=== PATIENT | female | born 1935 | race Caucasian/White ===

== ENCOUNTER 2016-11-13 11:03 | Inpatient (IN) ==
[2016-11-13 12:30] LABS: Basophils % 0.2 % (0.0-0.8); Hematocrit 33.3 VOL% (35.7-47.0); Hemoglobin 11.2 GM/DL (12.0-16.0); Immature Granulocytes % 0.6 %; Lymphocytes # 0.4 10*3/uL (1.4-4.0); Lymphocytes % 2.3 % (21.3-54.2); Mean Corpuscular HGB Conc 33.6 GM/DL (32-36); Mean Corpuscular Hemoglobin 31 PG (27-34); Mean Corpuscular Volume 93.3 FL (87-102); Mean Platelet Volume 11.4 FL (9.6-12.0); Monocytes # 1.4 10*3/uL (0.11-0.8); Neutrophils # 15.3 10*3/uL (1.4-7.4); Neutrophils % 88.9 % (38.7-73.9); Platelet Count 164 T/CUMM (130-400); Red Blood Count 3.57 MC/CUMM (3.8-5.5); Red Cell Distribution Width 14.6 % (9.3-17.3); White Blood Count 17.2 T/CUMM (4-12)
[2016-11-13 12:50] LABS: Band Neutrophils 13 % (0-10); Hypochromasia 1+; Lymphocytes 4 % (20-55); Segmented Neutrophils 76 % (50-85); Total Cells Counted 100
[2016-11-13 12:51] LABS: Platelet Estimate Adequate
[2016-11-13 13:00] LABS: Osmolality,Calculated 285.5 MOS/KG (273-304); Potassium 4.6 MMOL/L (3.5-5.1)
[2016-11-13 13:03] LABS: Troponin I Only 3.31 NG/ML (0.00-0.045)
--- NOTE | 2016-11-13 13:13 | XRay Report ---
Portable chest November 13, 2016 Indication: Shortness of breath Comparison images dated December 28, 2015. Findings: Prior sternotomy and evidence of coronary artery bypass graft. Heart size is stable. Small hiatal hernia is noted. Development of confluent opacities throughout the left lower lobe. Right lung remains clear. No acute osseous abnormalities. Degenerative changes throughout the thoracolumbar spine with mild thoracolumbar scoliosis. Impression: Left lower lobe pneumonia, consider aspiration PROCEDURE INTERPRETED AT [facility] DEPARTMENT OF RADIOLOGY Final Report Signed by: Darinel Alamo
[2016-11-13] MEDS ORDERED: ENOXAPARIN 40 MG/0.4 ML SYRINGE SUBCUT STA (13:58)
[2016-11-13] MEDS ORDERED: AZITHROMYCIN INJ 500 MG in SODIUM CHLORIDE 0.9% 250 ML IV STA (13:58)
[2016-11-13] MEDS ORDERED: ENOXAPARIN 40 MG/0.4 ML SYRINGE ONE (14:04)
[2016-11-13] MEDS ORDERED: AZITHROMYCIN 500 MG VIAL IV ONE (14:04)
--- NOTE | 2016-11-13 14:14 | Emergency Department Note ---
Nolan Fernandes Brooke, am scribing for, and in the presence of, Zachary Bates MD 11:46. Paulo Fernandes Sunil, MD, personally performed the services described in this documentation, ascribed by Arleen Francisco in my presence, and it is both accurate and complete 414 . Arrival - Arrival Chief Complaint: Chest Pain Stated Complaint: cp ED Nursing Triage Note: PT BROUGHT BY EMS FOR C/O CHEST PAIN BELOW LEFT BREAST FOR 2 DAYS. PAINFUL TO PALPATION. ASA, NTG, AND FENTANYL GIVEN PER EMS. INITIAL O2 SAT 82%. Mode of Arrival: Stretcher Limitations: No Limitations Source: Patient, EMS, RN Notes Reviewed Time Seen by Provider: 11/13/16 11:38 - History of Present Illness HPI Narrative: Patient is a 81 year old female who was brought into the ED by EMS with c/o chest pain that started last night. She states "I hurt all night" and the pain has worsened with time. Patient had bypass done in 1998 and states "they had to do five bypasses with that surgery." Patient has had some trouble since the bypass but she says she has not had to have any stents placed. Patient's thinks her last heart cath was done last year. She has no other complaints/pain. Patient also has PMHx of CHF, CAD, HTN, OR, anxiety, depression, asthma, bronchitis, COPD, GERD, back/neck problems, degenerative disk disease, osteoarthritis, breast cancer(bilateral mastectomy), and ovarian cancer. Her Integration Manager is Dr. Galdamez. Onset (ago): day(s) (1) Allergies/Adverse Reactions: Allergies Allergy/AdvReac Type Severity Reaction Status Date / Time Cefprozil [From Cefzil] Allergy RASH Verified 11/13/16 11:28 levofloxacin [From Levaquin] Allergy RASH Verified 11/13/16 11:28 solifenacin [From Vesicare] Allergy Unknown/Unable Verified 11/13/16 11:28 to obtain sotalol Allergy Unknown/Unable Verified 11/13/16 11:28 to obtain hydrocortisone AdvReac Swelling Verified 11/13/16 11:28 [From Cortizone-10] of Lip/Tongue/Throat ondansetron AdvReac RASH Verified 11/13/16 11:28 [From Zofran (as hydrochloride)] Penicillins AdvReac Swelling Verified 11/13/16 11:28 of Lip/Tongue/Throat prochlorperazine AdvReac Swelling Verified 11/13/16 11:28 [From Compazine] of Lip/Tongue/Throat promethazine [From Phenergan] AdvReac Swelling Verified 11/13/16 11:28 of Lip/Tongue/Throat Home Medications: Home Medications Medication Instructions Recorded Confirmed Type Albuterol Sulfate [Proair HFA] 90 mcg INH Q4H PRN 09/27/14 11/13/16 History Amlodipine Besylate 2.5 mg PO BEDTIME 09/27/14 11/13/16 History Aspirin [Ecotrin] 81 mg PO DAILY 09/27/14 11/13/16 History Atorvastatin [Lipitor] 20 mg PO BEDTIME 09/27/14 11/13/16 History Clopidogrel Bisulfate [Clopidogrel] 75 mg PO QPM 09/27/14 11/13/16 History Furosemide [Lasix] 20 mg PO BID 09/27/14 11/13/16 History Isosorbide Mononitrate [Isosorbide 60 mg PO QAM 09/27/14 11/13/16 History Mononitrate ER] Lansoprazole 30 mg PO QPM 09/27/14 11/13/16 History Levothyroxine Sodium [Synthroid] 100 mcg PO QAM 09/27/14 11/13/16 History Morphine Sulfate [Morphine Sulfate 15 mg PO BEDTIME 09/27/14 11/13/16 History ER] Morphine Sulfate [Morphine Sulfate 30 mg PO QAM 09/27/14 11/13/16 History ER] Nitroglycerin Sl Tab [Nitrostat] 0.4 mg SL Q5M 09/27/14 11/13/16 History Valsartan [Diovan] 40 mg PO BEDTIME 09/27/14 11/13/16 History Albuterol/Ipratropium Neb [Duoneb] 3 ml RESP TX QID 12/28/15 11/13/16 History Ranolazine [Ranexa] 500 mg PO QAM 12/28/15 11/13/16 History Nebivolol [Bystolic] 5 mg PO QAM 11/13/16 11/13/16 History Review of System - Review of System 12 point system: reviewed and no additional remarkable complaints except as stated - Review of System Constitutional: Absent: fever Respiratory: Absent: respiratory distress Cardiovascular: Present: chest pain Skin: Absent: rash Medical,Surgical,& Family Hx - Medical History Cardio: History of: CHF, CAD, Hypertension, OR (5 CABG), Cardiovascular Problems Psychological: History of: Anxiety Disorders, Depression Respiratory: History of: Asthma, Bronchitis, COPD, Respiratory Problems Gastrointestinal: History of: GERD Musculoskeletal: History of: Back/Neck Problems, Degenerative Disk Disease, Musculoskeletal Problems (osteoarthritis) Hematology: No history of: Blood Transfusion Reaction Reproductive: History of: Breast Cancer (Bilat. mastectomy) Other: History of: Cancer (BREAST AND OVARY) No history of: Anesthesia Reactions, Eczema, HIV, Malignant Hyperthermia - Surgical History Cardiac Surgeries: Sugical HX of: Cardiac Catheterization, Cardiac Surgery (CABG ) Abdominal Surgeries: Surgical HX of: Colonoscopy Reproductive Surgeries: Surgical HX of;: Breast Surgery (bilat mastectomy, BILAT IMPLANTS), Hysterectomy - Family History Family History: Reports;: Family Cancer (MOTHER), Family Diabetes (AUNT), Family Heart Disease (FATHER) Denies;: Family Anesthesia Reaction, Family Hypertension, Family Psychiatric Problems, Family Stroke - Social History Smoking Status: Former smoker Frequency of Alcohol Use: None Type of Drug Use: None Exam Vital Signs: Vital Signs Temperature 98.8 F 11/13/16 11:03 Pulse Rate 90 11/13/16 11:03 Respiratory Rate 20 11/13/16 11:03 Blood Pressure 111/54 11/13/16 11:03 O2 Sat by Pulse Oximetry 90 L 11/13/16 11:03 - General General appearance: alert, in no apparent distress, other (Frail appearing) - Head Head exam: Present: atraumatic, normocephalic - Eye Eye exam: Present: normal appearance, PERRL, EOMI - ENT ENT exam: Present: normal exam - Neck Neck exam: Present: normal inspection - Chest Chest inspection: Present: normal inspection, symmetric chest wall rise - Respiratory Respiratory exam: Present: normal lung sounds bilaterally - Cardiovascular Cardiovascular exam: Present: regular rate, normal rhythm, normal heart sounds - Abdominal Exam Abdominal exam: Present: soft, normal bowel sounds. Absent: distention, tenderness - Extremities Exam Extremities exam: Present: normal inspection - Back Exam Back exam: Present: normal inspection - Neurological Exam Neurological exam: Present: alert, oriented X3 - Psychiatric Psychiatric exam: Present: normal affect, normal mood - Skin Skin exam: Present: warm, dry, intact, normal color Results - Labs CBC & BMP: 11/13/16 12:24 11/13/16 12:24 Lab Results: I have reviewed the patients labs Labs: Laboratory Tests 11/13/16 11/13/16 12:24 12:24 WBC 17.2 H RBC 3.57 L Hgb 11.2 L Hct 33.3 L MCV 93.3 MCH 31 MCHC 33.6 RDW 14.6 Plt Count 164 MPV 11.4 Neut % (Auto) 88.9 H Lymph % (Auto) 2.3 L [place] % (Auto) 8.0 Eos % (Auto) 0.0 Baso % (Auto) 0.2 Neut # (Auto) 15.3 H Lymph # (Auto) 0.4 L [place] # (Auto) 1.4 H Eos # (Auto) 0.0 Baso # (Auto) 0.0 Total Counted 100 Immature Gran % 0.6 Nucleated RBC % 0.0 Immature Gran # 0.10 Segmented Neutrophils 76 Band Neutrophils 13 H Lymphocytes 4 L Monocytes 7 Nucleated RBCs # 0.00 Platelet Estimate Adequate Immature Plt Fraction 0.0 Hypochromasia 1+ Morphology Comment Sodium 139 Potassium 4.6 Chloride 107 Carbon Dioxide 26 Anion Gap 10.6 BUN 33 H Creatinine 1.50 H GFR Calculation 24 BUN/Creatinine Ratio 22.00 H Glucose 138 H Calculated Osmolality 285.5 Calcium 10.0 Total Creatine Kinase 104 CK-MB (CK-2) 5.2 H CK and CKMB Interp 5.0 Troponin I 3.310 H - Impressions This patient has a left lower lobe pneumonia as well as an STEMI Her troponin is elevated to 3.389, I discussed her case with Dr. Weller who advised admission under the hospitalist because she also has a pneumonia. I discussed with the physician intellectual property legal assistant for the hospitalist who would admit this patient. I have given her Zithromax 500 mg IV 1 dose Lovenox 40 mg subcu one dose she has already received aspirin - Diagnostic Findings Procedure: Chest x-ray: report reviewed by me (Left lower lobe pneumonia, consider aspiration.) Disposition Clinical Impression: NSTEMI (non-ST elevated myocardial infarction), Pneumonia Case discussed with: patient, patient's family Disposition: Still a Patient Condition: Stable
[2016-11-13] MEDS ORDERED: ONDANSETRON 4 MG/2 ML VIAL IV PRN (14:54)
--- NOTE | 2016-11-13 14:58 | EKG Report ---
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
[2016-11-13] MEDS: CLINDAMYCIN INJ 300 MG in PREMIX 1 EACH IV SCH (16:17)
--- NOTE | 2016-11-13 16:52 | Cardiology Consult Note ---
History of Present Illness - Data of Consult Patient: known to practice within the last 3 years - Consult Narrative History of present illness: Cardiology consult 81-year-old woman admitted with left chest pain and shortness of breath. She denies fever or chills. Patient has a dense infiltrate in the left lower lobe with an elevated white count 17.2 with left shift. The troponin is 3.310 with a normal CPK 104. The patient has chronic renal failure. Creatinine is 1.50 BUN 33 with a calculated creatinine clearance of 24 mL/min. The patient is 5 feet 2 inches tall and weighs 81 pounds. Chest x-ray shows hiatal hernia, bilateral breast implants and left lower lobe infiltrate. Patient has a history of ID and documented CAD. Status post four-vessel CABG September 30, 1998 with ALEXANDER graft to LAD, saphenous vein graft the fourth OM branch, and a sequential vein graft to PDA and posterior LV branch. Her last cardiac cath was October 11, [address] Sifuentes which showed ejection fraction of 35% with diffuse [place] vessel calcification with severe left main disease, severe proximal LAD disease, moderate diffuse circumflex disease and occluded right coronary. The ALEXANDER graft to LAD was patent. The vein graft to the fourth 1 branch was occluded. The sequential vein graft to the PDA posterior branch was patent but had moderate diffuse disease. The patient has chronic back and neck pain and takes morphine twice daily. She does have chronic hypertension. She has hyperlipidemia and takes atorvastatin 20 mg daily. She has COPD and uses duo nebs at home 4 times daily. No history of stroke. No history of diabetes. She does have GE reflux symptoms and takes Prevacid 30 mg daily. The patient lives in her home alone. Her daughter does most of the cooking for her. She sleeps on 2 pillows and has nocturia 3 or 4 times nightly which is chronic. She has a history of breast cancer status post bilateral mastectomies with breast implants around 1979. She also history of ovarian carcinoma. Initial lab data White count 17.2 with left shift hemoglobin 11.2 hematocrit 33.3 sodium 139 potassium 4.6 chloride 107 CO2 26 BUN 33 creatinine 1.50 Estimated GFR 24 mL/min CPK 104 troponin III 0.310 EKG shows sinus rhythm LVH with strain pattern. Blood pressure 130/80 pulse 86 and regular respirations 22 she is very hard of hearing but quite pleasant. Vital arcus. Right carotid bruit. Very decreased breath sounds throughout with rhonchi in the bases. Mild kyphosis. Regular rhythm. Distant heart tones soft systolic murmur. Abdomen soft benign. Femoral pulses are 2+ with faint left bruit distal pulses 1+ no leg edema Impression Left lower lobe pneumonia with dense infiltrate and elevated white count 17.2 with left shift Ischemic cardiomyopathy EF 35% by cardiac cath September 2007 Status post four-vessel CABG September 30, 1998 with ALEXANDER graft to LAD, vein graft to the fourth OM branch, and sequential vein graft to PDA and posterior LV branch Chronic back and neck pain requiring morphine twice daily COPD Frail and debilitated 5 feet 2 inches tall 81 pounds Hyperlipidemia Chronic hypertension Chronic GE reflux History of multiple distal esophageal stricture dilatations by , she was dilated December 03, 2011 and she was dilated about 1 year ago according to her daughter. Status post bilateral mastectomies for breast cancer with implants Atypical chest pain Hypothyroid on levothyroxine Sleep study done September 2001 showed insomnia, periodic limb movement disorder and no POLY Remote tobacco use, quit 1998 following bypass surgery Plan Admit to telemetry IV antibiotics Nebs Supplemental O2 as needed Encourage nutrition. patient is quite frail and weighs 81 pounds Echo Doppler in a.m. CC: Rigo Duenas MD - Home Medications and Allergies Home Medications: Home Medications Medication Instructions Recorded Confirmed Type Albuterol Sulfate [Proair HFA] 90 mcg INH Q4H PRN 09/27/14 11/13/16 History Amlodipine Besylate 2.5 mg PO BEDTIME 09/27/14 11/13/16 History Aspirin [Ecotrin] 81 mg PO DAILY 09/27/14 11/13/16 History Atorvastatin [Lipitor] 20 mg PO BEDTIME 09/27/14 11/13/16 History Clopidogrel Bisulfate [Clopidogrel] 75 mg PO QPM 09/27/14 11/13/16 History Furosemide [Lasix] 20 mg PO BID 09/27/14 11/13/16 History Isosorbide Mononitrate [Isosorbide 60 mg PO QAM 09/27/14 11/13/16 History Mononitrate ER] Lansoprazole 30 mg PO QPM 09/27/14 11/13/16 History Levothyroxine Sodium [Synthroid] 100 mcg PO QAM 09/27/14 11/13/16 History Morphine Sulfate [Morphine Sulfate 15 mg PO BEDTIME 09/27/14 11/13/16 History ER] Morphine Sulfate [Morphine Sulfate 30 mg PO QAM 09/27/14 11/13/16 History ER] Nitroglycerin Sl Tab [Nitrostat] 0.4 mg SL Q5M 09/27/14 11/13/16 History Valsartan [Diovan] 40 mg PO BEDTIME 09/27/14 11/13/16 History Albuterol/Ipratropium Neb [Duoneb] 3 ml RESP TX QID 12/28/15 11/13/16 History Ranolazine [Ranexa] 500 mg PO QAM 12/28/15 11/13/16 History Nebivolol [Bystolic] 5 mg PO QAM 11/13/16 11/13/16 History Allergies/Adverse Reactions: Allergies Allergy/AdvReac Type Severity Reaction Status Date / Time Cefprozil [From Cefzil] Allergy RASH Verified 11/13/16 11:28 levofloxacin [From Levaquin] Allergy RASH Verified 11/13/16 11:28 solifenacin [From Vesicare] Allergy Unknown/Unable Verified 11/13/16 11:28 to obtain sotalol Allergy Unknown/Unable Verified 11/13/16 11:28 to obtain hydrocortisone AdvReac Swelling Verified 11/13/16 11:28 [From Cortizone-10] of Lip/Tongue/Throat ondansetron AdvReac RASH Verified 11/13/16 11:28 [From Zofran (as hydrochloride)] Penicillins AdvReac Swelling Verified 11/13/16 11:28 of Lip/Tongue/Throat prochlorperazine AdvReac Swelling Verified 11/13/16 11:28 [From Compazine] of Lip/Tongue/Throat promethazine [From Phenergan] AdvReac Swelling Verified 11/13/16 11:28 of Lip/Tongue/Throat Medical,Surgical,& Family Hx - Medical History Cardio: History of: CHF, CAD, Hypertension, ID (5 CABG), Cardiovascular Problems Psychological: History of: Anxiety Disorders, Depression HEENT: History of: Ear Problem Respiratory: History of: Asthma, Bronchitis, COPD, Respiratory Problems Gastrointestinal: History of: GERD Musculoskeletal: History of: Back/Neck Problems, Degenerative Disk Disease, Musculoskeletal Problems (osteoarthritis) Hematology: No history of: Blood Transfusion Reaction Reproductive: History of: Breast Cancer (Bilat. mastectomy) Other: History of: Cancer (BREAST AND OVARY) No history of: Anesthesia Reactions, Eczema, HIV, Malignant Hyperthermia - Surgical History Cardiac Surgeries: Sugical HX of: Cardiac Catheterization, Cardiac Surgery (CABG ) HEENT Surgeries: Surgical HX of: Thyroid Surgery (thyroidectomy) Abdominal Surgeries: Surgical HX of: Appendectomy, Colonoscopy, EGD Reproductive Surgeries: Surgical HX of;: Breast Surgery (bilat mastectomy, BILAT IMPLANTS), Hysterectomy - Family History Family History: Reports;: Family Cancer (MOTHER), Family Diabetes (AUNT), Family Heart Disease (FATHER) Denies;: Family Anesthesia Reaction, Family Hypertension, Family Psychiatric Problems, Family Stroke - Social History Smoking Status: Former smoker Frequency of Alcohol Use: None Type of Drug Use: None Physical Examination Vital Signs Temp Pulse Resp BP Pulse Ox 98.8 F 90 20 111/54 90 L 11/13/16 11:03 11/13/16 11:03 11/13/16 11:03 11/13/16 11:03 11/13/16 11:03 Result/EKG - Labs CBC & BMP: 11/13/16 12:24 11/13/16 12:24 Labs: Laboratory Results - last 24 hr 11/13/16 11/13/16 12:24 12:24 WBC 17.2 H RBC 3.57 L Hgb 11.2 L Hct 33.3 L MCV 93.3 MCH 31 MCHC 33.6 RDW 14.6 Plt Count 164 MPV 11.4 Neut % (Auto) 88.9 H Lymph % (Auto) 2.3 L [place] % (Auto) 8.0 Eos % (Auto) 0.0 Baso % (Auto) 0.2 Neut # (Auto) 15.3 H Lymph # (Auto) 0.4 L [place] # (Auto) 1.4 H Eos # (Auto) 0.0 Baso # (Auto) 0.0 Total Counted 100 Immature Gran % 0.6 Nucleated RBC % 0.0 Immature Gran # 0.10 Segmented Neutrophils 76 Band Neutrophils 13 H Lymphocytes 4 L Monocytes 7 Nucleated RBCs # 0.00 Platelet Estimate Adequate Immature Plt Fraction 0.0 Hypochromasia 1+ Morphology Comment Sodium 139 Potassium 4.6 Chloride 107 Carbon Dioxide 26 Anion Gap 10.6 BUN 33 H Creatinine 1.50 H GFR Calculation 24 BUN/Creatinine Ratio 22.00 H Glucose 138 H Calculated Osmolality 285.5 Calcium 10.0 Total Creatine Kinase 104 CK-MB (CK-2) 5.2 H CK and CKMB Interp 5.0 Troponin I 3.310 H
[2016-11-13] MEDS ORDERED: ACETAMINOPHEN 325 MG TABLET PO PRN (18:53)
[2016-11-13] MEDS ORDERED: NITROGLYCERIN SL 0.4 MG TABLET SL SCH (19:00)
[2016-11-13] MEDS ORDERED: NITROGLYCERIN SL 0.4 MG TABLET SL PRN (19:00)
[2016-11-13] MEDS ORDERED: LANSOPRAZOLE 30 MG PO SCH (19:00)
[2016-11-13] MEDS: SODIUM CHLORIDE 0.9% 1,000 ML IV SCH (20:00)
[2016-11-13] MEDS: VALSARTAN 80 MG TABLET PO SCH ×2 (20:54→21:28)
[2016-11-13] MEDS: MORPHINE ER 15 MG TABLET PO SCH (20:55)
[2016-11-13] MEDS: ATORVASTATIN 20 MG TABLET PO SCH (20:55)
[2016-11-13] MEDS: FUROSEMIDE 20 MG TABLET PO SCH (20:55)
[2016-11-13] MEDS: CLOPIDOGREL 75 MG TABLET PO SCH (20:55)
[2016-11-13] MEDS: DOCUSATE SODIUM 100 MG CAPSULE PO SCH (20:55)
[2016-11-13] MEDS ORDERED: amLODIPine 2.5 MG TABLET PO SCH (21:00)
[2016-11-14] MEDS: CLINDAMYCIN INJ 300 MG in PREMIX 1 EACH IV SCH ×4 (01:17→23:30)
[2016-11-14 05:11] LABS: Basophils % 0.3 % (0.0-0.8); Eosinophils # 0.1 10*3/uL (0.0-0.87); Eosinophils % 0.8 % (0.00-10.9); Hematocrit 32.7 VOL% (35.7-47.0); Hemoglobin 10.8 GM/DL (12.0-16.0); Immature Granulocytes % 0.4 %; Immature Granulocytes Absolute 0.06 #; Lymphocytes # 1.4 10*3/uL (1.4-4.0); Lymphocytes % 9.8 % (21.3-54.2); Mean Corpuscular Hemoglobin 31 PG (27-34); Mean Corpuscular Volume 94.2 FL (87-102); Mean Platelet Volume 11.9 FL (9.6-12.0); Monocytes # 1.4 10*3/uL (0.11-0.8); Monocytes % 9.8 % (1.7-12.7); Neutrophils # 11.4 10*3/uL (1.4-7.4); Neutrophils % 78.9 % (38.7-73.9); Platelet Count 163 T/CUMM (130-400); Red Blood Count 3.47 MC/CUMM (3.8-5.5); Red Cell Distribution Width 14.8 % (9.3-17.3); White Blood Count 14.4 T/CUMM (4-12)
[2016-11-14 05:45] LABS: Calcium 10.1 MG/DL (8.5-10.1); Magnesium 2.1 MG/DL (1.8-2.4); Osmolality,Calculated 286.4 MOS/KG (273-304); Risk Ratio 1.66; VLDL CHOLESTEROL 9.6 MG/DL
[2016-11-14] MEDS: SODIUM CHLORIDE 0.9% 1,000 ML IV SCH ×2 (05:54→20:43)
[2016-11-14] MEDS: ALBUTEROL/IPRATROPIUM 3 ML NEB RESP TX SCH ×4 (07:30→19:13)
[2016-11-14] MEDS: RANOLAZINE 500 MG TABLET PO SCH (08:49)
[2016-11-14] MEDS: ISOSORBIDE MONONITRATE 60 MG TABLET PO SCH (08:50)
[2016-11-14] MEDS: MORPHINE ER 30 MG TABLET PO SCH (08:50)
[2016-11-14] MEDS: DOCUSATE SODIUM 100 MG CAPSULE PO SCH ×2 (08:50→20:51)
[2016-11-14] MEDS: LEVOTHYROXINE 100 MCG TABLET PO SCH (08:51)
[2016-11-14] MEDS: NEBIVOLOL 5 MG TABLET PO SCH (08:51)
[2016-11-14] MEDS: PANTOPRAZOLE 40 MG TABLET PO SCH (08:51)
[2016-11-14] MEDS: ASPIRIN EC 81 MG TABLET PO SCH (08:51)
[2016-11-14] MEDS: FUROSEMIDE 20 MG TABLET PO SCH ×2 (08:51→20:55)
[2016-11-14] MEDS ORDERED: ASPIRIN EC 325 MG TABLET PO SCH (09:00)
--- NOTE | 2016-11-14 09:10 | Cardiology Progress Note ---
Cardiology - PN: Subj Interval history: Cardiology note 81-year-old woman admitted with left lower lobe pneumonia No temperature. Very hard of hearing but pleasant O2 sat 91% on 2 L cannula Blood pressure 110/62 Regular rhythm soft systolic murmur Decreased breath sounds throughout with bibasilar rhonchi left greater than right Abdomen soft nontender No leg edema Lab data today White count 14.7 hemoglobin 10.8 hematocrit 32.7 Sodium 140 potassium 4.0 chloride 106 CO2 30 BUN 33 creatinine 1.20 Glucose 118 magnesium 2.1 Impression Left lower lobe pneumonia with dense infiltrate and elevated white count 17.2 with left shift Ischemic cardiomyopathy EF 35% by cardiac cath September 2007 Status post four-vessel CABG September 30, 1998 with ALEXANDER graft to LAD, vein graft to the fourth OM branch, and sequential vein graft to the PDA and posterior LV branch Chronic back and neck pain requiring morphine twice daily COPD Frail 5 feet 2 inches tall 81 pounds Hyperlipidemia Chronic GE reflux History of multiple distal esophageal stricture dilatation by Dr. Baez, last dilated 1 year ago Status post bilateral mastectomies for breast CA with implants Atypical chest pain Hypothyroid Remote tobacco abuse, quit 1998 following bypass surgery Sleep study September 2001 showed insomnia, periodic limb movement disorder NOS a Hypertension Plan IV antibiotics clindamycin and azithromycin Echo Doppler Encourage nutrition Nebs Isosorbide 60 mg daily, Ranexa 500 mg daily Bystolic 5 mg daily Amlodipine 2.5 mg at bedtime Atorvastatin 20 mg daily Lovenox 30 mg subcu daily Discussed with daughter Exam (Progress Note) - Constitutional Vitals: Period Temp Pulse Resp BP Sys/Ch Pulse Ox Last 24 Hr 97.9 F-98.8 F 63-90 16-22 83-113/47-58 90-99 Result/EKG - Labs CBC & BMP: 11/14/16 04:32 11/14/16 04:32 Labs: Laboratory Results - last 24 hr 11/13/16 11/13/16 11/14/16 12:24 12:24 04:32 WBC 17.2 H 14.4 H RBC 3.57 L 3.47 L Hgb 11.2 L 10.8 L Hct 33.3 L 32.7 L MCV 93.3 94.2 MCH 31 31 MCHC 33.6 33.0 RDW 14.6 14.8 Plt Count 164 163 MPV 11.4 11.9 Neut % (Auto) 88.9 H 78.9 H Lymph % (Auto) 2.3 L 9.8 L [place] % (Auto) 8.0 9.8 Eos % (Auto) 0.0 0.8 Baso % (Auto) 0.2 0.3 Neut # (Auto) 15.3 H 11.4 H Lymph # (Auto) 0.4 L 1.4 [place] # (Auto) 1.4 H 1.4 H Eos # (Auto) 0.0 0.1 Baso # (Auto) 0.0 0.0 Total Counted 100 Immature Gran % 0.6 0.4 Nucleated RBC % 0.0 0.0 Immature Gran # 0.10 0.06 Segmented Neutrophils 76 Band Neutrophils 13 H Lymphocytes 4 L Monocytes 7 Nucleated RBCs # 0.00 0.00 Platelet Estimate Adequate Immature Plt Fraction 0.0 0.0 Hypochromasia 1+ Morphology Comment Sodium 139 Potassium 4.6 Chloride 107 Carbon Dioxide 26 Anion Gap 10.6 BUN 33 H Creatinine 1.50 H GFR Calculation 24 BUN/Creatinine Ratio 22.00 H Glucose 138 H Calculated Osmolality 285.5 Calcium 10.0 Magnesium Total Creatine Kinase 104 CK-MB (CK-2) 5.2 H CK and CKMB Interp 5.0 Troponin I 3.310 H Triglycerides Cholesterol LDL Cholesterol VLDL Cholesterol HDL Cholesterol Heart Disease Risk Ratio 11/14/16 04:32 WBC RBC Hgb Hct MCV MCH MCHC RDW Plt Count MPV Neut % (Auto) Lymph % (Auto) [place] % (Auto) Eos % (Auto) Baso % (Auto) Neut # (Auto) Lymph # (Auto) [place] # (Auto) Eos # (Auto) Baso # (Auto) Total Counted Immature Gran % Nucleated RBC % Immature Gran # Segmented Neutrophils Band Neutrophils Lymphocytes Monocytes Nucleated RBCs # Platelet Estimate Immature Plt Fraction Hypochromasia Morphology Comment Sodium 140 Potassium 4.0 Chloride 106 Carbon Dioxide 30 Anion Gap 8.0 BUN 33 H Creatinine 1.20 H GFR Calculation 31 BUN/Creatinine Ratio 27.00 H Glucose 118 H Calculated Osmolality 286.4 Calcium 10.1 Magnesium 2.1 Total Creatine Kinase CK-MB (CK-2) CK and CKMB Interp Troponin I Triglycerides 48 Cholesterol 108 LDL Cholesterol 33.0 VLDL Cholesterol 9.6 HDL Cholesterol 65 H Heart Disease Risk Ratio 1.66
[2016-11-14] MEDS: MORPHINE 2 MG/1 ML SYRINGE IV PRN (10:15)
--- NOTE | 2016-11-14 12:40 | ECHO Report ---
Kristel Sanchez Exam Date: 11/14/2016 08:11 Referring Physician: Technologist: Leila Watson Age: 81 Ht (in): 60 Wt (lb): 82 Gender: F Exam Location: [facility] Echo Indications: NSTEMI, chest pain, SOB, HTN, pneumonia BP: 96 / 53 HR: 73 Rhythm: Sinus Technical Quality: Good IMPRESSIONS EF 35 %, moderate global hypokinesis. Grade II/IV diastolic dysfunction, moderately elevated filling pressures. Normal right ventricular size and systolic function. The right atrium is mildly enlarged. Severely increased left atrial size. Mildly thickened mitral valve. Mitral annular calcification. Mild mitral valve regurgitation. Aortic valve sclerosis. Trace aortic valve regurgitation. Moderate tricuspid valve regurgitation. PAP50 mmHG. Trace pulmonary valve regurgitation. No pericardial effusion. Normal aorta. MEASUREMENTS (Male / Female) Normal Values 2D ECHO LV Diastolic Diameter PLAX 3.6 cm 4.2 - 5.9 / 3.9 - 5.3 cm LV Systolic Diameter PLAX 3.1 cm LV Fractional Shortening PLAX 13.5 % IVS Diastolic Thickness 1.3 cm 0.6 - 1.0 / 0.6 - 0.9 cm LVPW Diastolic Thickness 1.1 cm 0.6 - 1.0 / 0.6 - 0.9 cm Aortic Root Diameter 2.6 cm LA Systolic Diameter LX 4.0 cm 3.0 - 4.0 / 2.7 - 3.8 cm DOPPLER TR Peak Velocity 290.0 cm/s TR Peak Gradient 33.6 mmHg FINDINGS Left Ventricle EF 35 %, moderate global hypokinesis. Grade II/IV diastolic dysfunction, moderately elevated filling pressures. Right Ventricle Normal right ventricular size and systolic function. Right Atrium The right atrium is mildly enlarged. Left Atrium Severely increased left atrial size. Mitral Valve Mildly thickened mitral valve. Mitral annular calcification. Mild mitral valve regurgitation. Aortic Valve Aortic valve sclerosis. Trace aortic valve regurgitation. Tricuspid Valve Morphologically normal tricuspid valve. Moderate tricuspid valve regurgitation. PAP50 mmHG. Pulmonic Valve Pulmonic valve not well visualized. Trace pulmonary valve regurgitation. Pericardium No pericardial effusion. Aorta Normal aorta. Parvez Weller (Electronically Signed) Final Date: 14 November 2016 12:39
--- NOTE | 2016-11-14 13:27 | Family Practice History&Phys ---
Assessment and Plan (1) Left lower lobe pneumonia Status: Acute Assessment and plan: We will admit and start on empiric antibiotics. Radiologist felt x-rays were consistent with aspirational pneumonia. Patient presently on Cleocin and Zithromax. Patient is allergic to quinolones Current Visit: Yes (2) Ischemic cardiomyopathy Status: Chronic Assessment and plan: Have consulted cardiology and they are evaluating and following her cardiomyopathy Current Visit: Yes (3) Chronic obstructive pulmonary disease Status: Chronic Assessment and plan: Patient has some wheezing in bases and this is definitely contributing factor. It started on respiratory treatments. Encourage patient increase activity Current Visit: Yes (4) Status post coronary artery bypass graft Status: Chronic Assessment and plan: Stable at present Current Visit: Yes (5) Coronary artery disease Status: Chronic Assessment and plan: Stable at present. He is being followed followed by cardiology. She had elevated troponins on admission but these are returning to normal and most likely are related to other etiologies other than cardiac Current Visit: No (6) Status post carcinoma of the breast Status: Chronic Assessment and plan: Stable at present Current Visit: Yes (7) Gastroesophageal reflux with stricture Status: Chronic Assessment and plan: Stable at present. We will start her on oral protein pump inhibitor Current Visit: Yes (8) Hypothyroid Status: Chronic Assessment and plan: Stable on present medications. Will repeat lab studies Current Visit: Yes (9) Hypertension Status: Chronic Assessment and plan: Blood pressures are overcontrolled at present. Patient's daughter states that Dr. Avalos had stopped her blood pressure medications at home. Will hold her amlodipine. Will monitor blood pressure Current Visit: Yes History of Present Illness Chief complaint: Dyspnea and cough History of present illness: Ms. Sanchez is a 81 year old female Patient presented to emergency room with a one-week history of progressive shortness of breath and nonproductive cough. She was noted to have a left lower lobe pneumonia in the emergency room. She also had elevated troponins. Patient has a history of coronary artery disease and ischemic cardiomyopathy. She also has chronic obstructive pulmonary disease. Her creatinine was slightly elevated at 1.5 in the emergency room. She had a white blood cell count of 17,200. In view of history we will admit further evaluation therapy Home Medications Medication Instructions Recorded Confirmed Type Albuterol Sulfate [Proair HFA] 90 mcg INH Q4H PRN 09/27/14 11/13/16 History Amlodipine Besylate 2.5 mg PO BEDTIME 09/27/14 11/13/16 History Aspirin [Ecotrin] 81 mg PO DAILY 09/27/14 11/13/16 History Atorvastatin [Lipitor] 20 mg PO BEDTIME 09/27/14 11/13/16 History Clopidogrel Bisulfate [Clopidogrel] 75 mg PO QPM 09/27/14 11/13/16 History Furosemide [Lasix] 20 mg PO BID 09/27/14 11/13/16 History Isosorbide Mononitrate [Isosorbide 60 mg PO QAM 09/27/14 11/13/16 History Mononitrate ER] Lansoprazole 30 mg PO QPM 09/27/14 11/13/16 History Levothyroxine Sodium [Synthroid] 100 mcg PO QAM 09/27/14 11/13/16 History Morphine Sulfate [Morphine Sulfate 15 mg PO BEDTIME 09/27/14 11/13/16 History ER] Morphine Sulfate [Morphine Sulfate 30 mg PO QAM 09/27/14 11/13/16 History ER] Nitroglycerin Sl Tab [Nitrostat] 0.4 mg SL Q5M 09/27/14 11/13/16 History Valsartan [Diovan] 40 mg PO BEDTIME 09/27/14 11/13/16 History Albuterol/Ipratropium Neb [Duoneb] 3 ml RESP TX QID 12/28/15 11/13/16 History Ranolazine [Ranexa] 500 mg PO QAM 12/28/15 11/13/16 History Nebivolol [Bystolic] 5 mg PO QAM 11/13/16 11/13/16 History Allergies Allergy/AdvReac Type Severity Reaction Status Date / Time Cefprozil [From Cefzil] Allergy RASH Verified 11/13/16 11:28 levofloxacin [From Levaquin] Allergy RASH Verified 11/13/16 11:28 solifenacin [From Vesicare] Allergy Unknown/Unable Verified 11/13/16 11:28 to obtain sotalol Allergy Unknown/Unable Verified 11/13/16 11:28 to obtain hydrocortisone AdvReac Swelling Verified 11/13/16 11:28 [From Cortizone-10] of Lip/Tongue/Throat ondansetron AdvReac RASH Verified 11/13/16 11:28 [From Zofran (as hydrochloride)] Penicillins AdvReac Swelling Verified 11/13/16 11:28 of Lip/Tongue/Throat prochlorperazine AdvReac Swelling Verified 11/13/16 11:28 [From Compazine] of Lip/Tongue/Throat promethazine [From Phenergan] AdvReac Swelling Verified 11/13/16 11:28 of Lip/Tongue/Throat Medical,Surgical,& Family Hx - Medical History Cardio: History of: CHF, CAD, Hypertension, [place] (5 CABG), Cardiovascular Problems Psychological: History of: Anxiety Disorders, Depression HEENT: History of: Ear Problem Respiratory: History of: Asthma, Bronchitis, COPD, Respiratory Problems Gastrointestinal: History of: GERD Musculoskeletal: History of: Back/Neck Problems, Degenerative Disk Disease, Musculoskeletal Problems (osteoarthritis) Hematology: No history of: Blood Transfusion Reaction Reproductive: History of: Breast Cancer (Bilat. mastectomy) Other: History of: Cancer (BREAST AND OVARY) No history of: Anesthesia Reactions, Eczema, HIV, Malignant Hyperthermia - Surgical History Cardiac Surgeries: Sugical HX of: Cardiac Catheterization, Cardiac Surgery (CABG ) HEENT Surgeries: Surgical HX of: Thyroid Surgery (thyroidectomy) Abdominal Surgeries: Surgical HX of: Appendectomy, Colonoscopy, EGD Reproductive Surgeries: Surgical HX of;: Breast Surgery (bilat mastectomy, BILAT [employer]PLANTS), Hysterectomy - Family History Family History: Reports;: Family Cancer (MOTHER), Family Diabetes (AUNT), Family Heart Disease (FATHER) Denies;: Family Anesthesia Reaction, Family Hypertension, Family Psychiatric Problems, Family Stroke - Social History Smoking Status: Former smoker Frequency of Alcohol Use: None Type of Drug Use: None Marital Status: Lives With:: Alone Functional capacity: uses cane/walker Exam - Constitutional Vitals: Period Temp Pulse Resp BP Sys/Ch Pulse Ox Last 24 Hr 97.9 F-98.5 F 62-84 16-22 83-113/47-57 90-99 General appearance: mild distress - Head Head exam: Present: normal inspection - Eye Pupils: Present: ROGERIO - ENT ENT exam: Present: other (Patient is extremely hard of hearing) - Neck Neck exam: Present: normal inspection - Respiratory Respiratory exam: Present: rhonchi, wheezes - Cardiovascular Cardiovascular exam: Present: regular rate and rhythm - GI/Abdominal GI/Abdominal exam: Present: normal bowel sounds, soft - Extremities Exam Extremities exam: Present: normal inspection - Back Exam Back exam: Present: normal inspection - Neurological Exam Neurological exam: Present: alert - Psychiatric Psychiatric exam: Present: flat affect - Skin Skin exam: Present: normal color Results - Labs CBC & BMP: 11/14/16 04:32 11/14/16 04:32
[2016-11-14] MEDS: ENOXAPARIN 30 MG/0.3 ML SYRINGE SUBCUT SCH (15:29)
[2016-11-14] MEDS: AZITHROMYCIN INJ 500 MG in SODIUM CHLORIDE 0.9% 250 ML IV SCH (15:29)
[2016-11-14 18:04] LABS: Apearance,Urine CLEAR (Clear); Bacteria,Urine Moderate /HPF (Few); Bilirubin,Urine Negative (Negative); Blood, Urine Small mg/dL (Negative); Glucose,Urine (UA) Negative (Negative); Hyaline Casts,Urine 1 /LPF (0-3); Ketones,Urine Negative (Negative); Mucus,Urine Occasional /LPF (Occasional); Nitrite,Urine Negative (Negative); Protein,Urine Negative; RBC,Urine 1 /HPF (0-4); Squamous Epithelial Cell,Urine Occasional /HPF (0-10); Urine Color Yellow (Yellow); Urine Specific Gravity 1.009 (1.001-1.035); Urine Urobilinogen < 2.0 EU/DL (0.2-1.0); WBC,Urine 4 /HPF (0-6)
[2016-11-14] MEDS: CLOPIDOGREL 75 MG TABLET PO SCH (18:52)
[2016-11-14] MEDS: MORPHINE ER 15 MG TABLET PO SCH (20:48)
[2016-11-14] MEDS: VALSARTAN 80 MG TABLET PO SCH (20:52)
[2016-11-14] MEDS: ATORVASTATIN 20 MG TABLET PO SCH (20:57)
[2016-11-15 05:13] LABS: Basophils % 0.3 % (0.0-0.8); Eosinophils # 0.3 10*3/uL (0.0-0.87); Eosinophils % 2.7 % (0.00-10.9); Hematocrit 32.3 VOL% (35.7-47.0); Hemoglobin 10.6 GM/DL (12.0-16.0); Immature Granulocytes % 0.6 %; Immature Granulocytes Absolute 0.07 #; Lymphocytes # 1.3 10*3/uL (1.4-4.0); Lymphocytes % 10.7 % (21.3-54.2); Mean Corpuscular HGB Conc 32.8 GM/DL (32-36); Mean Corpuscular Hemoglobin 31 PG (27-34); Mean Platelet Volume 11.8 FL (9.6-12.0); Monocytes # 1.2 10*3/uL (0.11-0.8); Neutrophils # 9.4 10*3/uL (1.4-7.4); Neutrophils % 75.7 % (38.7-73.9); Platelet Count 164 T/CUMM (130-400); Red Cell Distribution Width 14.8 % (9.3-17.3); White Blood Count 12.4 T/CUMM (4-12)
[2016-11-15 05:42] LABS: Calcium 9.9 MG/DL (8.5-10.1); Osmolality,Calculated 285.3 MOS/KG (273-304); Potassium 4.1 MMOL/L (3.5-5.1)
[2016-11-15 05:57] LABS: Free T4 (Free Thyroxine) 1.33 NG/DL (0.76-1.46); Thyroid Stimulating Hormone 0.779 uIU/ml (0.358-3.74)
[2016-11-15] MEDS: SODIUM CHLORIDE 0.9% 1,000 ML IV SCH ×2 (07:07→11:08)
[2016-11-15] MEDS: ALBUTEROL/IPRATROPIUM 3 ML NEB RESP TX SCH ×4 (07:38→19:21)
[2016-11-15] MEDS: CLINDAMYCIN INJ 300 MG in PREMIX 1 EACH IV SCH ×2 (08:59→16:00)
[2016-11-15] MEDS: ISOSORBIDE MONONITRATE 60 MG TABLET PO SCH (09:11)
[2016-11-15] MEDS: RANOLAZINE 500 MG TABLET PO SCH (09:11)
[2016-11-15] MEDS: NEBIVOLOL 5 MG TABLET PO SCH (09:11)
[2016-11-15] MEDS: FUROSEMIDE 20 MG TABLET PO SCH ×2 (09:11→20:57)
[2016-11-15] MEDS: LEVOTHYROXINE 100 MCG TABLET PO SCH (09:11)
[2016-11-15] MEDS: MORPHINE ER 30 MG TABLET PO SCH (09:11)
[2016-11-15] MEDS: ASPIRIN EC 81 MG TABLET PO SCH (09:12)
[2016-11-15] MEDS: DOCUSATE SODIUM 100 MG CAPSULE PO SCH ×2 (09:15→20:56)
[2016-11-15] MEDS: PANTOPRAZOLE 40 MG TABLET PO SCH (09:15)
[2016-11-15] MEDS: MEGESTROL 400 MG/10 ML UDCUP PO SCH ×2 (09:16→09:17)
--- NOTE | 2016-11-15 10:36 | XRay Report ---
2 view chest November 15, 2016 at 0808 hours Indication: Difficulty breathing Comparison images from November 13, 2016 Findings: There is again underlying interstitial fibrosis. Some degree of improvement in the superimposed left lingular and lower lobe consolidation. Trace pleural effusions are stable. Marked osteoporosis and atheromatous disease Impression: 1. Some degree of improvement in the left lingular and lower lobe consolidation 2. Chronic interstitial fibrosis 3. Trace pleural effusions, unchanged PROCEDURE INTERPRETED AT [facility] DEPARTMENT OF RADIOLOGY Final Report Signed by: Darinel Alamo
--- NOTE | 2016-11-15 11:27 | Cardiology Progress Note ---
Cardiology - PN: Subj Interval history: Cardiology note 81-year-old woman admitted with left lower lobe pneumonia No temperature. Minimal cough. Appetite fair. O2 sat 95% on 2 L Blood pressure 120/68 Regular rhythm Decreased breath sounds bilaterally few rhonchi in the left base Abdomen benign No leg edema Lab data today White count 12.4 hemoglobin 10.6 hematocrit 32.3 Sodium 141 potassium 4.1 chloride 106 CO2 30 BUN 23 creatinine 1.0 Glucose 124 Impression Left lower lobe pneumonia Ischemic cardia myopathy EF 35% by cardiac cath September 2007 Status post four-vessel CABG September 30, 1998 with ALEXANDER graft to LAD, vein graft to the fourth OM branch, and sequential vein graft to the PDA and posterior LV branch Chronic back and neck pain requiring morphine twice daily COPD Frailty 5 feet 2 inches tall 81 pounds Hyperlipidemia GE reflux History of multiple distal esophageal stricture dilatations by Dr. Baez, last dilated 1 year ago Atypical chest pain Hypothyroid Remote tobacco abuse, quit 1998 following bypass surgery Hypertension Echo showed ejection fraction of 35% with grade 2 diastolic dysfunction, severely dilated left atrium, mild MR, aortic valve sclerosis, normal RV function, moderate TR PA pressure 50 and no effusion Plan IV antibiotics Nebs Encourage nutrition Isosorbide 60 mg daily Ranexa 500 mg daily Atorvastatin 20 mg daily Lovenox subcu 30 mg daily Exam (Progress Note) - Constitutional Vitals: Period Temp Pulse Resp BP Sys/Ch Pulse Ox Last 24 Hr 97.9 F-100.7 F 56-81 16-20 86-133/45-65 89-99 Result/EKG - Labs CBC & BMP: 11/15/16 04:28 11/15/16 04:28 Labs: Laboratory Results - last 24 hr 11/14/16 11/15/16 11/15/16 04:00 04:28 04:28 WBC 12.4 H RBC 3.40 L Hgb 10.6 L Hct 32.3 L MCV 95.0 MCH 31 MCHC 32.8 RDW 14.8 Plt Count 164 MPV 11.8 Neut % (Auto) 75.7 H Lymph % (Auto) 10.7 L [place] % (Auto) 10.0 Eos % (Auto) 2.7 Baso % (Auto) 0.3 Neut # (Auto) 9.4 H Lymph # (Auto) 1.3 L [place] # (Auto) 1.2 H Eos # (Auto) 0.3 Baso # (Auto) 0.0 Immature Gran % 0.6 Nucleated RBC % 0.0 Immature Gran # 0.07 Nucleated RBCs # 0.00 Immature Plt Fraction 0.0 Sodium 141 Potassium 4.1 Chloride 106 Carbon Dioxide 30 Anion Gap 9.1 BUN 23 H D Creatinine 1.00 GFR Calculation 40 BUN/Creatinine Ratio 23.00 H Glucose 124 H Calculated Osmolality 285.3 Calcium 9.9 Free T4 TSH 3rd Generation Urine Color Yellow Urine Appearance Clear Urine pH 5.0 Ur Specific [place] 1.009 Urine Protein Negative Urine Glucose (UA) Negative Urine Ketones Negative Urine Blood Small Urine Nitrate Negative Urine Bilirubin Negative Urine Urobilinogen < 2.0 H Urine Leukocytes Negative Urine RBC 1 Urine WBC 4 Ur Squamous Epith Cells Occasional Urine Bacteria Moderate Hyaline Casts 1 Urine Mucus Occasional Ur Culture Indicated? Not indicated 11/15/16 04:28 WBC RBC Hgb Hct MCV MCH MCHC RDW Plt Count MPV Neut % (Auto) Lymph % (Auto) [place] % (Auto) Eos % (Auto) Baso % (Auto) Neut # (Auto) Lymph # (Auto) [place] # (Auto) Eos # (Auto) Baso # (Auto) Immature Gran % Nucleated RBC % Immature Gran # Nucleated RBCs # Immature Plt Fraction Sodium Potassium Chloride Carbon Dioxide Anion Gap BUN Creatinine GFR Calculation BUN/Creatinine Ratio Glucose Calculated Osmolality Calcium Free T4 1.33 TSH 3rd Generation 0.779 Urine Color Urine Appearance Urine pH Ur Specific [place] Urine Protein Urine Glucose (UA) Urine Ketones Urine Blood Urine Nitrate Urine Bilirubin Urine Urobilinogen Urine Leukocytes Urine RBC Urine WBC Ur Squamous Epith Cells Urine Bacteria Hyaline Casts Urine Mucus Ur Culture Indicated?
[2016-11-15] MEDS ORDERED: FUROSEMIDE 40 MG/4 ML VIAL IV ONE (12:23)
[2016-11-15] MEDS: MORPHINE 2 MG/1 ML SYRINGE IV PRN ×2 (12:51→18:00)
--- NOTE | 2016-11-15 12:55 | Family Practice Progress Note ---
Family Practice - PN: Subj Interval history: 11/15/16 -patient states she feels better this a.m. Appetite is improved. Feels that her cough and dyspnea also improved. Denies any new complaints. Vitals are stable except blood pressure still decreased. Her weight is up 4 pounds. Her a.m. WBC is improved at 12,400. Her thought labs are stable except her BNP is elevated at 3067. Her a.m. chest x-ray reveals some degree of improvement in the left lingular and left lower lobe pneumonia. Does not show any signs of failure. Physical exam is stable except she has some persistent wheezing in bases. Did not auscultate any rales. Dr. Weller ordered additional dosage of Lasix today. Encourage patient to sit up in chair and ambulate as much as possible. We will continue present therapy. Exam (Progress Note) - Constitutional Vitals: Period Temp Pulse Resp BP Sys/Ch Pulse Ox Last 24 Hr 97.9 F-100.7 F 56-81 16-20 86-133/45-65 89-99 Results - Labs CBC & BMP: 11/15/16 04:28 11/15/16 04:28 Assessment and Plan (1) Left lower lobe pneumonia Status: Acute Assessment and plan: We will admit and start on empiric antibiotics. Radiologist felt x-rays were consistent with aspirational pneumonia. Patient presently on Cleocin and Zithromax. Patient is allergic to quinolones Current Visit: Yes (2) Ischemic cardiomyopathy Status: Chronic Assessment and plan: Have consulted cardiology and they are evaluating and following her cardiomyopathy Current Visit: Yes (3) Chronic obstructive pulmonary disease Status: Chronic Assessment and plan: Patient has some wheezing in bases and this is definitely contributing factor. It started on respiratory treatments. Encourage patient increase activity Current Visit: Yes (4) Status post coronary artery bypass graft Status: Chronic Assessment and plan: Stable at present Current Visit: Yes (5) Coronary artery disease Status: Chronic Assessment and plan: Stable at present. He is being followed followed by cardiology. She had elevated troponins on admission but these are returning to normal and most likely are related to other etiologies other than cardiac Current Visit: No (6) Status post carcinoma of the breast Status: Chronic Assessment and plan: Stable at present Current Visit: Yes (7) Gastroesophageal reflux with stricture Status: Chronic Assessment and plan: Stable at present. We will start her on oral protein pump inhibitor Current Visit: Yes (8) Hypothyroid Status: Chronic Assessment and plan: Stable on present medications. Will repeat lab studies Current Visit: Yes (9) Hypertension Status: Chronic Assessment and plan: Blood pressures are overcontrolled at present. Patient's daughter states that Dr. Avalos had stopped her blood pressure medications at home. Will hold her amlodipine. Will monitor blood pressure Current Visit: Yes
[2016-11-15] MEDS: ENOXAPARIN 30 MG/0.3 ML SYRINGE SUBCUT SCH (16:41)
[2016-11-15] MEDS: AZITHROMYCIN INJ 500 MG in SODIUM CHLORIDE 0.9% 250 ML IV SCH (16:41)
[2016-11-15] MEDS: CLOPIDOGREL 75 MG TABLET PO SCH (20:55)
[2016-11-15] MEDS: ATORVASTATIN 20 MG TABLET PO SCH (20:55)
[2016-11-15] MEDS: MORPHINE ER 15 MG TABLET PO SCH (20:56)
[2016-11-15] MEDS: VALSARTAN 80 MG TABLET PO SCH (20:56)
[2016-11-16] MEDS: CLINDAMYCIN INJ 300 MG in PREMIX 1 EACH IV SCH ×4 (00:28→23:37)
[2016-11-16 05:46] LABS: Basophils # 0.1 10*3/uL (0.0-0.2); Basophils % 0.5 % (0.0-0.8); Eosinophils # 0.4 10*3/uL (0.0-0.87); Eosinophils % 2.8 % (0.00-10.9); Hematocrit 30.5 VOL% (35.7-47.0); Hemoglobin 10.2 GM/DL (12.0-16.0); Immature Granulocytes % 0.7 %; Immature Granulocytes Absolute 0.09 #; Lymphocytes # 1.4 10*3/uL (1.4-4.0); Mean Corpuscular HGB Conc 33.4 GM/DL (32-36); Mean Corpuscular Hemoglobin 31 PG (27-34); Mean Corpuscular Volume 91.6 FL (87-102); Mean Platelet Volume 11.9 FL (9.6-12.0); Monocytes # 1.4 10*3/uL (0.11-0.8); Monocytes % 10.7 % (1.7-12.7); Neutrophils # 9.7 10*3/uL (1.4-7.4); Neutrophils % 74.3 % (38.7-73.9); Platelet Count 175 T/CUMM (130-400); Red Blood Count 3.33 MC/CUMM (3.8-5.5); Red Cell Distribution Width 14.6 % (9.3-17.3); White Blood Count 13.1 T/CUMM (4-12)
[2016-11-16 06:21] LABS: Calcium 10.1 MG/DL (8.5-10.1); Osmolality,Calculated 284.3 MOS/KG (273-304); Potassium 3.7 MMOL/L (3.5-5.1)
[2016-11-16] MEDS: ALBUTEROL/IPRATROPIUM 3 ML NEB RESP TX SCH ×3 (07:22→18:58)
--- NOTE | 2016-11-16 07:55 | Family Practice Progress Note ---
Family Practice - PN: Subj Interval history: Patient states she is feeling much better this morning but she is having some chest pain this morning. She is not having any fever or chills this morning. She denies any cough or shortness of breath. Exam (Progress Note) - Constitutional Vitals: Period Temp Pulse Resp BP Sys/Ch Pulse Ox Last 24 Hr 97.8 F-99.4 F 68-80 15-20 90-130/47-65 83-95 Exam: Objective a well-developed white female no acute distress. She is able give good history. She has no dyspnea at rest. Cardiovascular: The heart rates regular without murmurs or gallops. Respiratory: Patient has bibasilar rales. Abdomen: Abdomen soft and nontender to palpation. Results - Labs CBC & BMP: 11/16/16 04:22 11/16/16 04:22 Lab Results: I have reviewed the past 24 hour labs Assessment and Plan (1) Left lower lobe pneumonia Status: Acute Assessment and plan: 11/16/2016: Patient states she certainly feeling much better. She states she is not having any fever or chills. She is having angina which is quite common for her. Current Visit: Yes Specialty Discharge - Follow Up or Referrals
[2016-11-16] MEDS: MORPHINE 2 MG/1 ML SYRINGE IV PRN (09:27)
[2016-11-16] MEDS: LEVOTHYROXINE 100 MCG TABLET PO SCH (09:35)
[2016-11-16] MEDS: CLOPIDOGREL 75 MG TABLET PO SCH (09:35)
[2016-11-16] MEDS: FUROSEMIDE 20 MG TABLET PO SCH (09:35)
[2016-11-16] MEDS: RANOLAZINE 500 MG TABLET PO SCH (09:35)
[2016-11-16] MEDS: MORPHINE ER 30 MG TABLET PO SCH (09:35)
[2016-11-16] MEDS: MEGESTROL 400 MG/10 ML UDCUP PO SCH (09:36)
[2016-11-16] MEDS: NEBIVOLOL 5 MG TABLET PO SCH (09:36)
[2016-11-16] MEDS: ISOSORBIDE MONONITRATE 60 MG TABLET PO SCH (09:36)
[2016-11-16] MEDS: ASPIRIN EC 81 MG TABLET PO SCH (09:36)
[2016-11-16] MEDS: DOCUSATE SODIUM 100 MG CAPSULE PO SCH ×2 (09:36→21:04)
[2016-11-16] MEDS: PANTOPRAZOLE 40 MG TABLET PO SCH (09:46)
--- NOTE | 2016-11-16 10:32 | Cardiology Progress Note ---
<Cony San E - Last Filed: 11/16/16 10:15> Assessment and Plan - Time spent with patient Time spent with patient: Greater than 30 minutes (1) Dyslipidemia Status: Chronic Assessment and plan: SEE PLAN OF CARE LISTED BELOW Current Visit: Yes (2) Anemia Status: Acute Assessment and plan: SEE PLAN OF CARE LISTED BELOW Current Visit: Yes (3) Coronary artery disease Status: Chronic Assessment and plan: SEE PLAN OF CARE LISTED BELOW Current Visit: No Qualifiers: Coronary Disease-Associated Artery/Lesion type: [place] artery [place] vs. transplanted heart: [place] heart (4) NSTEMI (non-ST elevated myocardial infarction) Status: Acute Assessment and plan: SEE PLAN OF CARE LISTED BELOW Current Visit: Yes (5) Left lower lobe pneumonia Status: Acute Assessment and plan: SEE PLAN OF CARE LISTED BELOW Current Visit: Yes (6) Ischemic cardiomyopathy Status: Chronic Assessment and plan: SEE PLAN OF CARE LISTED BELOW Current Visit: Yes (7) Status post coronary artery bypass graft Status: Chronic Assessment and plan: SEE PLAN OF CARE LISTED BELOW Current Visit: Yes (8) Chronic obstructive pulmonary disease Status: Chronic Assessment and plan: SEE PLAN OF CARE LISTED BELOW Current Visit: Yes (9) Hypertension Status: Chronic Assessment and plan: SEE PLAN OF CARE LISTED BELOW Current Visit: Yes Cardiology - PN: Subj Interval history: 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 Last cardiac catheterization October 11, 2007 revealed: EF 35%, diffuse [place] vessel calcification with severe left main disease, severe proximal LAD disease, moderate diffuse circumflex disease and occluded right coronary artery. ALEXANDER to LAD was patent, SVG to OM4 occluded. Sequential vein graft to PDA posterior branch was patent but had moderate diffuse disease. Admitted November 13, 2016 for shortness of breath and chest pain. Was found to have a left lower lobe pneumonia, elevated troponin 3.310, abnormal EKG, and acute CHF (pBNP 3067). She is currently being treated for pneumonia, NSTEMI and CHF. November 14, 2016 echo: EF 35%, moderate global hypokinesis, grade 2 diastolic dysfunction, PAP 50 mmHg. 2016: Patient continues to improve over the weekend. Today, she has begun ambulating. Still having significant amount of dyspnea at rest and with exertion. She is experiencing chest pain described as chest tightness when taking deep breaths. Continues to cough and is beginning to produce a thick sputum. Leukocytosis has improved, no longer febrile. Patient's blood pressure is well controlled on Valsartan and Bystolic. Tolerating aspirin, Plavix, isosorbide mononitrate and Atorvastatin. At some point, patient may be considered for possible cardiac catheterization. Will further discuss with Dr. Otoole and await additional recommendations. ASSESSMENT/PLAN: 1. LLL CAP - continue antibiotics, incentive spirometry and respiratory treatments. 2. NSTEMI - will check a troponin today, EKG in a.m. She is being treated with appropriate medication regimen at this time. We did discuss the possibility of cardiac catheterization in her future once she has recovered from her pneumonia. She is agreeable to proceed if needed. 3. KNOWN CAD - continue aspirin, Plavix, beta-nini, ARB, lipid-lowering agent. 4. ICM - EF 35%. EF was 35% 2007. This is not a new diagnosis. 5. ACUTE CHF -secondary to systolic dysfunction (EF 35%), NYHA class III. Continue with afterload reduction, diuretics, daily weights and strict I&O. Will ask that daily weights be recorded more strictly 6. HYPERTENSION - tolerating appropriate medications. Well controlled. 7. DYSLIPIDEMIA - LDL 33. Continue Atorvastatin 8. ADVANCED AGE - continue current plan of care 9. ANEMIA - stable on Plavix, Aspirin. Will check stool for occult blood. Exam (Progress Note) - Constitutional Vitals: Period Temp Pulse Resp BP Sys/Ch Pulse Ox Last 24 Hr 97.6 F-99.4 F 68-80 15-20 90-130/47-60 83-96 Exam: General: [Thin, small framed white female. In no apparent distress. Pleasant and cooperative. ] HEENT: [PERRL, normocephalic, atraumatic. Mucous membranes moist. No jaundice noted. Conjunctiva moist and clear, sclerae anicteric] Neck: No obvious JVD/HJR, no thyromegaly or lymphadenopathy noted. No carotid bruit appreciated Cardiac: [Regular rate and rhythm.] [No obvious murmur, rub or gallop.] Lungs: [End expiratory wheezes noted anteriorly and posteriorly. Scant crackles in the bases which improved with cough. ] Oxygen in use via nasal cannula Abdomen: Soft, bowel sounds normoactive. Nontender and nondistended. No abdominal bruit or thrill noted. No masses noted. Musculoskeletal: No fluid collection. Decreased range of motion is noted. Extremities: No clubbing, cyanosis noted. [ No edema noted.] Upper extremity pulses 2+. Lower extremity pulses 2+. Capillary refill less than 3 seconds. Skin: No unusual lesions or rashes. No skin breakdown appreciated. Neuro: Awake, alert and oriented 3. Moves all extremities well without hemiparesis or paralysis. No essential tremor is appreciated. Result/EKG - Labs CBC & BMP: 11/16/16 04:22 11/16/16 04:22 Lab Results: I have reviewed the past 24 hour labs Labs: Laboratory Results - last 24 hr 11/15/16 11/16/16 11/16/16 11:11 04:22 04:22 WBC 13.1 H RBC 3.33 L Hgb 10.2 L Hct 30.5 L MCV 91.6 MCH 31 MCHC 33.4 RDW 14.6 Plt Count 175 MPV 11.9 Neut % (Auto) 74.3 H Lymph % (Auto) 11.0 L [place] % (Auto) 10.7 Eos % (Auto) 2.8 Baso % (Auto) 0.5 Neut # (Auto) 9.7 H Lymph # (Auto) 1.4 [place] # (Auto) 1.4 H Eos # (Auto) 0.4 Baso # (Auto) 0.1 Immature Gran % 0.7 Nucleated RBC % 0.0 Immature Gran # 0.09 Nucleated RBCs # 0.00 Immature Plt Fraction 0.0 Sodium 141 Potassium 3.7 Chloride 103 Carbon Dioxide 32 Anion Gap 9.7 BUN 22 H Creatinine 0.90 GFR Calculation 45 BUN/Creatinine Ratio 24.00 H Glucose 112 H Calculated Osmolality 284.3 Calcium 10.1 Magnesium B-Natriuretic Peptide 3067 H 11/16/16 11/16/16 04:22 04:22 WBC RBC Hgb Hct MCV MCH MCHC RDW Plt Count MPV Neut % (Auto) Lymph % (Auto) [place] % (Auto) Eos % (Auto) Baso % (Auto) Neut # (Auto) Lymph # (Auto) [place] # (Auto) Eos # (Auto) Baso # (Auto) Immature Gran % Nucleated RBC % Immature Gran # Nucleated RBCs # Immature Plt Fraction Sodium Potassium Chloride Carbon Dioxide Anion Gap BUN Creatinine GFR Calculation BUN/Creatinine Ratio Glucose Calculated Osmolality Calcium Magnesium 1.7 L B-Natriuretic Peptide 2910 H - Diagnostic Findings Procedure: Chest x-ray: report reviewed by me - EKG EKG results: interpreted by me EKG shows: sinus rhythm Specialty Discharge - Follow Up or Referrals <Hannah Otoole - Last Filed: 11/16/16 13:01> Cardiology - PN: Subj Interval history: I have personally interviewed and evaluated the patient, reviewed the chart and discussed medical decision-making with Practitioner Jaswinder. I have read this note and agree with her documentation here in. The patient is not on a very aggressive diuretic regimen and and I will add IV Lasix. Exam (Progress Note) - Constitutional Vitals: Period Temp Pulse Resp BP Sys/Ch Pulse Ox Last 24 Hr 97.4 F-99.4 F 68-80 15-20 90-130/47-60 87-96 Result/EKG - Labs CBC & BMP: 11/16/16 04:22 11/16/16 04:22 Labs: Laboratory Results - last 24 hr 11/16/16 11/16/16 11/16/16 04:22 04:22 04:22 WBC 13.1 H RBC 3.33 L Hgb 10.2 L Hct 30.5 L MCV 91.6 MCH 31 MCHC 33.4 RDW 14.6 Plt Count 175 MPV 11.9 Neut % (Auto) 74.3 H Lymph % (Auto) 11.0 L [place] % (Auto) 10.7 Eos % (Auto) 2.8 Baso % (Auto) 0.5 Neut # (Auto) 9.7 H Lymph # (Auto) 1.4 [place] # (Auto) 1.4 H Eos # (Auto) 0.4 Baso # (Auto) 0.1 Immature Gran % 0.7 Nucleated RBC % 0.0 Immature Gran # 0.09 Nucleated RBCs # 0.00 Immature Plt Fraction 0.0 Sodium 141 Potassium 3.7 Chloride 103 Carbon Dioxide 32 Anion Gap 9.7 BUN 22 H Creatinine 0.90 GFR Calculation 45 BUN/Creatinine Ratio 24.00 H Glucose 112 H Calculated Osmolality 284.3 Calcium 10.1 Magnesium 1.7 L Troponin I B-Natriuretic Peptide 11/16/16 11/16/16 04:22 10:55 WBC RBC Hgb Hct MCV MCH MCHC RDW Plt Count MPV Neut % (Auto) Lymph % (Auto) [place] % (Auto) Eos % (Auto) Baso % (Auto) Neut # (Auto) Lymph # (Auto) [place] # (Auto) Eos # (Auto) Baso # (Auto) Immature Gran % Nucleated RBC % Immature Gran # Nucleated RBCs # Immature Plt Fraction Sodium Potassium Chloride Carbon Dioxide Anion Gap BUN Creatinine GFR Calculation BUN/Creatinine Ratio Glucose Calculated Osmolality Calcium Magnesium Troponin I 0.320 H D B-Natriuretic Peptide 2910 H
--- NOTE | 2016-11-16 14:15 | Physician Query Form ---
CLICK EDIT DOCUMENT TO SELECT QUERY ANSWER --> OK --> SIGN Nanette Pena RN Clinical Side Framer W) [phone] (f) [phone] [email or web address] PROVIDERS: Make your selection(s) from the choices in EACH section by typing an "x" and enter comments in the comment section. Please use your independent medical judgment in providing your response. This request does not imply that any particular answer is desired or expected. CLINICAL INDICATORS: (Providers should not edit this section) Based on documentation of creatinine from 1.5 to 1.0. GFR from 24 to 40. Monitored with serial lab checks. Clarify which of the following most accurately represents the patient's renal status: ( ) Acute kidney injury (non-traumatic) ( ) Acute renal failure ( ) Acute renal failure with underlying Chronic Kidney Disease (CKD) - please provide stage below ( ) Acute renal failure with pathological renal lesion ( ) Acute renal failure with necrosis ( ) tubular ( ) medullary ( ) cortical (x ) CKD - please provide stage below ( ) End Stage Renal Disease ( ) Acute interstitial nephritis ( ) Hepatorenal syndrome ( ) Other, please specify: ( ) Clinically unable to determine Chronic Kidney Disease Stages Source: National Kidney Disease Foundation ( ) Stage I (eGFR > or = 90) ( ) Stage II (eGFR 60 - 89) (s ) Stage III (eGFR 30 - 59) ( ) Stage IV (eGFR 15 - 29) ( ) Stage V (eGFR < 15 or dialysis) COMMENTS: PLEASE ALSO DOCUMENT RESPONSE IN PROGRESS NOTES AND/OR DISCHARGE SUMMARY Use of terms such as suspected, likely, or probable (associated with a specific diagnosis that is being evaluated, monitored, or treated as if it exists) are acceptable and can be restated in the discharge summary if not ruled out. MTDD
[2016-11-16] MEDS: FUROSEMIDE 40 MG/4 ML VIAL IV SCH ×2 (15:58→16:09)
[2016-11-16] MEDS: AZITHROMYCIN INJ 500 MG in SODIUM CHLORIDE 0.9% 250 ML IV SCH ×2 (15:59→16:01)
[2016-11-16] MEDS: ENOXAPARIN 40 MG/0.4 ML SYRINGE SUBCUT SCH (16:09)
[2016-11-16] MEDS: MORPHINE ER 15 MG TABLET PO SCH (21:04)
[2016-11-16] MEDS: ATORVASTATIN 20 MG TABLET PO SCH (21:04)
[2016-11-16] MEDS: VALSARTAN 80 MG TABLET PO SCH (21:05)
[2016-11-17 05:30] LABS: Basophils # 0.1 10*3/uL (0.0-0.2); Basophils % 0.4 % (0.0-0.8); Eosinophils # 0.5 10*3/uL (0.0-0.87); Eosinophils % 3.6 % (0.00-10.9); Hematocrit 29.1 VOL% (35.7-47.0); Hemoglobin 9.9 GM/DL (12.0-16.0); Immature Granulocytes % 0.5 %; Immature Granulocytes Absolute 0.06 #; Lymphocytes # 1.2 10*3/uL (1.4-4.0); Lymphocytes % 9.1 % (21.3-54.2); Mean Corpuscular Hemoglobin 31 PG (27-34); Mean Corpuscular Volume 90.4 FL (87-102); Mean Platelet Volume 11.7 FL (9.6-12.0); Monocytes # 1.6 10*3/uL (0.11-0.8); Monocytes % 12.2 % (1.7-12.7); Neutrophils # 9.8 10*3/uL (1.4-7.4); Neutrophils % 74.2 % (38.7-73.9); Platelet Count 202 T/CUMM (130-400); Red Blood Count 3.22 MC/CUMM (3.8-5.5); Red Cell Distribution Width 14.8 % (9.3-17.3); White Blood Count 13.2 T/CUMM (4-12)
[2016-11-17 06:10] LABS: Calcium 10.2 MG/DL (8.5-10.1); Magnesium 1.8 MG/DL (1.8-2.4); Osmolality,Calculated 279.5 MOS/KG (273-304)
[2016-11-17] MEDS: ALBUTEROL/IPRATROPIUM 3 ML NEB RESP TX SCH ×5 (07:01→19:16)
--- NOTE | 2016-11-17 07:18 | EKG Report ---
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
--- NOTE | 2016-11-17 08:07 | Family Practice Progress Note ---
Family Practice - PN: Subj Interval history: Patient states she slowly feeling some better. Her blood cultures positive for Staphylococcus and vaginosis which sensitive to her present antibiotic therapy. She states her chest pain has improved. She is noted to have elevation of her serum troponins. She is certainly not a candidate for any intervention. Patient states she has not had any fever or chills in the last 24 hours. She has been up and ambulating in the room without dyspnea. Exam (Progress Note) - Constitutional Vitals: Period Temp Pulse Resp BP Sys/Ch Pulse Ox Last 24 Hr 96.6 F-98.1 F 70-81 16-18 92-123/49-62 90-96 Exam: Objective a well-developed white female no acute distress. She is able give good history. She has no dyspnea at rest. Cardiovascular: The heart rates regular without murmurs or gallops. Respiratory: Patient has improvement in her bibasilar rales. Abdomen: Abdomen soft and nontender to palpation. Results - Labs CBC & BMP: 11/17/16 04:14 11/17/16 04:14 Lab Results: I have reviewed the past 24 hour labs Assessment and Plan (1) Left lower lobe pneumonia Status: Acute Assessment and plan: 11/16/2016: Patient states she certainly feeling much better. She states she is not having any fever or chills. She is having angina which is quite common for her. 11/17/2016: Patient's clinical course is 1 of improvement. Current Visit: Yes Specialty Discharge - Follow Up or Referrals
[2016-11-17] MEDS: ISOSORBIDE MONONITRATE 60 MG TABLET PO SCH (09:07)
[2016-11-17] MEDS: MEGESTROL 400 MG/10 ML UDCUP PO SCH (09:07)
[2016-11-17] MEDS: NEBIVOLOL 5 MG TABLET PO SCH (09:07)
[2016-11-17] MEDS: RANOLAZINE 500 MG TABLET PO SCH (09:07)
[2016-11-17] MEDS: ASPIRIN EC 81 MG TABLET PO SCH (09:07)
[2016-11-17] MEDS: MORPHINE ER 30 MG TABLET PO SCH (09:07)
[2016-11-17] MEDS: LEVOTHYROXINE 100 MCG TABLET PO SCH (09:07)
[2016-11-17] MEDS: CLOPIDOGREL 75 MG TABLET PO SCH (09:08)
[2016-11-17] MEDS: DOCUSATE SODIUM 100 MG CAPSULE PO SCH ×2 (09:08→22:20)
[2016-11-17] MEDS: CLINDAMYCIN INJ 300 MG in PREMIX 1 EACH IV SCH ×2 (09:08→17:56)
[2016-11-17] MEDS: FUROSEMIDE 40 MG/4 ML VIAL IV SCH ×2 (09:08→17:55)
[2016-11-17] MEDS: PANTOPRAZOLE 40 MG TABLET PO SCH (09:08)
--- NOTE | 2016-11-17 09:19 | Cardiology Progress Note ---
<Stephanie Gallardo - Last Filed: 11/17/16 09:20> Assessment and Plan (1) NSTEMI (non-ST elevated myocardial infarction) Status: Acute Assessment and plan: SEE PLAN OF CARE LISTED BELOW. Current Visit: Yes (2) Left lower lobe pneumonia Status: Acute Assessment and plan: SEE PLAN OF CARE LISTED BELOW. Current Visit: Yes (3) Anemia Status: Acute Assessment and plan: SEE PLAN OF CARE LISTED BELOW. Current Visit: Yes (4) Chronic obstructive pulmonary disease Status: Chronic Assessment and plan: SEE PLAN OF CARE LISTED BELOW. Current Visit: No (5) Dyslipidemia Status: Chronic Assessment and plan: SEE PLAN OF CARE LISTED BELOW. Current Visit: Yes (6) Hypertension Status: Chronic Assessment and plan: SEE PLAN OF CARE LISTED BELOW. 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 Current Visit: No (9) Coronary artery disease Status: Chronic Assessment and plan: SEE PLAN OF CARE LISTED BELOW. Current Visit: Yes Qualifiers: Coronary Disease-Associated Artery/Lesion type: [place] artery [place] vs. 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 Last cardiac catheterization October 11, 2007 revealed: EF 35%, diffuse [place] vessel calcification with severe left main disease, severe proximal LAD disease, moderate diffuse circumflex disease and occluded right coronary artery. ALEXANDER to LAD was patent, SVG to OM4 occluded. Sequential vein graft to PDA posterior branch was patent but had moderate diffuse disease. Admitted November 13, 2016 for shortness of breath and chest pain. Was found to have a left lower lobe pneumonia, elevated troponin 3.310, abnormal EKG, and acute CHF (pBNP 3067). She is currently being treated for pneumonia, NSTEMI and CHF. November 14, 2016 echo: EF 35%, moderate global hypokinesis, grade 2 diastolic dysfunction, PAP 50 mmHg. 2016: Patient continues to improve over the weekend. Today, she has begun ambulating. Still having significant amount of dyspnea at rest and with exertion. She is experiencing chest pain described as chest tightness when taking deep breaths. Continues to cough and is beginning to produce a thick sputum. Leukocytosis has improved, no longer febrile. Patient's blood pressure is well controlled on Valsartan and Bystolic. Tolerating aspirin, Plavix, isosorbide mononitrate and Atorvastatin. At some point, patient may be considered for possible cardiac catheterization. Will further discuss with Dr. Otoole and await additional recommendations. 2016: Patient has continued to improve. She continues to have productive cough and dyspnea. O2 saturations ranging from 90-93 on 2 L nasal cannula. She continues to be afebrile. Leukocytosis is improving. Today white blood cell count 13.2. She tells me that she is experiencing chest pain with coughing and deep breathing. Cardiac biomarkers are trending down. Vital signs are stable. Tolerating aspirin, Plavix, Imdur and atorvastatin well. At some point, patient may be considered for possible cardiac catheterization. Will further discuss with Dr. Otoole and await additional recommendations. IMPRESSION AND PLAN: 1. LLL CAP - Continue antibiotics, incentive spirometry and respiratory treatments. 2. NSTEMI - Cardiac biomarkers trending down. EKG improved. She is being treated with appropriate medication regimen at this time. We did discuss the possibility of cardiac catheterization in her future once she has recovered from her pneumonia. She is agreeable to proceed if needed. 3. KNOWN CAD - Continue aspirin, Plavix, beta-nini, ARB, lipid-lowering agent. 4. ICM - EF 35%. EF was 35% 2007. This is not a new diagnosis. 5. ACUTE CHF - Secondary to systolic dysfunction (EF 35%), NYHA class III. IV Lasix initiated yesterday. Diuresing well. However, weight is unchanged overnight. Continue with afterload reduction, diuretics, daily weights and strict I&O. 6. HYPERTENSION - Tolerating appropriate medications. Well controlled. 7. DYSLIPIDEMIA - LDL 33. Continue Atorvastatin 8. ADVANCED AGE - Continue current plan of care 9. ANEMIA - Stable on Plavix, Aspirin. Stool negative for occult blood. Exam (Progress Note) - Constitutional Vitals: Period Temp Pulse Resp BP Sys/Ch Pulse Ox Last 24 Hr 96.6 F-98.2 F 70-81 16-20 92-123/49-62 90-96 Exam: General: [Thin, small framed white female. In no apparent distress. Pleasant and cooperative. ] HEENT: [PERRL, normocephalic, atraumatic. Mucous membranes moist. No jaundice noted. Conjunctiva moist and clear, sclerae anicteric] Neck: No obvious JVD/HJR, no thyromegaly or lymphadenopathy noted. No carotid bruit appreciated Cardiac: [Regular rate and rhythm.] [No obvious murmur, rub or gallop.] Lungs: Scant crackles in the bases which improved with cough. ] Oxygen in use via nasal cannula Abdomen: Soft, bowel sounds normoactive. Nontender and nondistended. No abdominal bruit or thrill noted. No masses noted. Musculoskeletal: No fluid collection. Decreased range of motion is noted. Extremities: No clubbing, cyanosis noted. [ No edema noted.] Upper extremity pulses 2+. Lower extremity pulses 2+. Capillary refill less than 3 seconds. Skin: No unusual lesions or rashes. No skin breakdown appreciated. Neuro: Awake, alert and oriented 3. Moves all extremities well without hemiparesis or paralysis. No essential tremor is appreciated. Result/EKG - Labs CBC & BMP: 11/17/16 04:14 11/17/16 04:14 Lab Results: I have reviewed the past 24 hour labs Labs: Laboratory Results - last 24 hr 11/16/16 11/17/16 11/17/16 10:55 04:14 04:14 WBC 13.2 H RBC 3.22 L Hgb 9.9 L Hct 29.1 L MCV 90.4 MCH 31 MCHC 34.0 RDW 14.8 Plt Count 202 MPV 11.7 Neut % (Auto) 74.2 H Lymph % (Auto) 9.1 L [place] % (Auto) 12.2 Eos % (Auto) 3.6 Baso % (Auto) 0.4 Neut # (Auto) 9.8 H Lymph # (Auto) 1.2 L [place] # (Auto) 1.6 H Eos # (Auto) 0.5 Baso # (Auto) 0.1 Immature Gran % 0.5 Nucleated RBC % 0.0 Immature Gran # 0.06 Nucleated RBCs # 0.00 Immature Plt Fraction 0.0 Sodium 139 Potassium 4.0 Chloride 101 Carbon Dioxide 30 Anion Gap 12.0 BUN 22 H Creatinine 0.90 GFR Calculation 45 BUN/Creatinine Ratio 24.00 H Glucose 99 Calculated Osmolality 279.5 Calcium 10.2 H Magnesium 1.8 Troponin I 0.320 H D Specialty Discharge - Follow Up or Referrals <XiangHannah - Last Filed: 11/17/16 13:09> Cardiology - PN: Subj Interval history: I have personally interviewed and examined the patient, reviewed the chart and discussed medical decision-making with practitioner Sami. I have read this note and agree with the documentation herein. She continues to have some orthopnea symptoms and will not tolerate a cardiac catheterization yet. Perhaps by Tuesday we will have diuresed her enough to tolerate this. Exam (Progress Note) - Constitutional Vitals: Period Temp Pulse Resp BP Sys/Ch Pulse Ox Last 24 Hr 96.6 F-98.2 F 70-88 16-20 92-123/49-62 86-96 Result/EKG - Labs CBC & BMP: 11/17/16 04:14 11/17/16 04:14 Labs: Laboratory Results - last 24 hr 11/17/16 11/17/16 04:14 04:14 WBC 13.2 H RBC 3.22 L Hgb 9.9 L Hct 29.1 L MCV 90.4 MCH 31 MCHC 34.0 RDW 14.8 Plt Count 202 MPV 11.7 Neut % (Auto) 74.2 H Lymph % (Auto) 9.1 L [place] % (Auto) 12.2 Eos % (Auto) 3.6 Baso % (Auto) 0.4 Neut # (Auto) 9.8 H Lymph # (Auto) 1.2 L [place] # (Auto) 1.6 H Eos # (Auto) 0.5 Baso # (Auto) 0.1 Immature Gran % 0.5 Nucleated RBC % 0.0 Immature Gran # 0.06 Nucleated RBCs # 0.00 Immature Plt Fraction 0.0 Sodium 139 Potassium 4.0 Chloride 101 Carbon Dioxide 30 Anion Gap 12.0 BUN 22 H Creatinine 0.90 GFR Calculation 45 BUN/Creatinine Ratio 24.00 H Glucose 99 Calculated Osmolality 279.5 Calcium 10.2 H Magnesium 1.8
[2016-11-17] MEDS: MORPHINE 2 MG/1 ML SYRINGE IV PRN (11:01)
[2016-11-17] MEDS: AZITHROMYCIN INJ 500 MG in SODIUM CHLORIDE 0.9% 250 ML IV SCH (14:19)
[2016-11-17] MEDS: ENOXAPARIN 40 MG/0.4 ML SYRINGE SUBCUT SCH (14:19)
[2016-11-17] MEDS: VALSARTAN 80 MG TABLET PO SCH (22:20)
[2016-11-17] MEDS: MORPHINE ER 15 MG TABLET PO SCH (22:20)
[2016-11-17] MEDS: ATORVASTATIN 20 MG TABLET PO SCH (22:20)
[2016-11-18] MEDS: CLINDAMYCIN INJ 300 MG in PREMIX 1 EACH IV SCH ×3 (01:31→16:56)
[2016-11-18 05:20] LABS: Basophils # 0.1 10*3/uL (0.0-0.2); Basophils % 0.5 % (0.0-0.8); Eosinophils # 0.6 10*3/uL (0.0-0.87); Eosinophils % 4.6 % (0.00-10.9); Hematocrit 30.4 VOL% (35.7-47.0); Hemoglobin 10.6 GM/DL (12.0-16.0); Immature Granulocytes % 0.9 %; Immature Granulocytes Absolute 0.11 #; Lymphocytes # 1.7 10*3/uL (1.4-4.0); Lymphocytes % 13.3 % (21.3-54.2); Mean Corpuscular HGB Conc 34.9 GM/DL (32-36); Mean Corpuscular Hemoglobin 31 PG (27-34); Mean Corpuscular Volume 88.6 FL (87-102); Mean Platelet Volume 11.4 FL (9.6-12.0); Monocytes # 1.4 10*3/uL (0.11-0.8); Neutrophils % 69.7 % (38.7-73.9); Platelet Count 248 T/CUMM (130-400); Red Blood Count 3.43 MC/CUMM (3.8-5.5); Red Cell Distribution Width 14.7 % (9.3-17.3); White Blood Count 12.9 T/CUMM (4-12)
[2016-11-18 05:54] LABS: Calcium 10.4 MG/DL (8.5-10.1); Osmolality,Calculated 279.7 MOS/KG (273-304); Potassium 3.9 MMOL/L (3.5-5.1)
[2016-11-18] MEDS: ALBUTEROL/IPRATROPIUM 3 ML NEB RESP TX SCH ×4 (07:41→19:14)
--- NOTE | 2016-11-18 07:56 | Family Practice Progress Note ---
Family Practice - PN: Subj Interval history: Patient states she is feeling much better and is not having any more shortness of breath has not had any significant chest pain. Exam (Progress Note) - Constitutional Vitals: Period Temp Pulse Resp BP Sys/Ch Pulse Ox Last 24 Hr 96.9 F-98.2 F 51-88 16-20 91-116/47-60 86-97 Exam: Objective a well-developed white female no acute distress. She states she had a good night. She has no dyspnea at rest. Cardiovascular: The heart rates regular without murmurs or gallops. Respiratory: Patient has improvement in her bibasilar rales. Abdomen: Abdomen soft and nontender to palpation. Results - Labs CBC & BMP: 11/18/16 05:03 11/18/16 05:03 Lab Results: I have reviewed the past 24 hour labs Assessment and Plan (1) Left lower lobe pneumonia Status: Acute Assessment and plan: 11/16/2016: Patient states she certainly feeling much better. She states she is not having any fever or chills. She is having angina which is quite common for her. 11/17/2016: Patient's clinical course is 1 of improvement. 11/18/2016: Repeat chest x-ray is pending this morning. Current Visit: Yes (2) NSTEMI (non-ST elevated myocardial infarction) Status: Acute Assessment and plan: 11/18/2016: Dr. Otoole plans on performing left heart catheterization on her in a day or so. Patient is certainly improved clinically from her pneumonia to proceed. Current Visit: Yes Specialty Discharge - Follow Up or Referrals
[2016-11-18] MEDS: RANOLAZINE 500 MG TABLET PO SCH (08:48)
[2016-11-18] MEDS: ISOSORBIDE MONONITRATE 60 MG TABLET PO SCH (08:48)
[2016-11-18] MEDS: CLOPIDOGREL 75 MG TABLET PO SCH (08:48)
[2016-11-18] MEDS: PANTOPRAZOLE 40 MG TABLET PO SCH (08:48)
[2016-11-18] MEDS: DOCUSATE SODIUM 100 MG CAPSULE PO SCH ×2 (08:48→21:20)
[2016-11-18] MEDS: LEVOTHYROXINE 100 MCG TABLET PO SCH (08:48)
[2016-11-18] MEDS: NEBIVOLOL 5 MG TABLET PO SCH (08:48)
[2016-11-18] MEDS: MORPHINE ER 30 MG TABLET PO SCH (08:49)
[2016-11-18] MEDS: ASPIRIN EC 81 MG TABLET PO SCH (08:49)
[2016-11-18] MEDS: MEGESTROL 400 MG/10 ML UDCUP PO SCH (08:49)
[2016-11-18] MEDS: FUROSEMIDE 40 MG/4 ML VIAL IV SCH ×2 (08:50→16:57)
--- NOTE | 2016-11-18 09:59 | Cardiology Progress Note ---
<Stephanie Gallardo - Last Filed: 11/18/16 09:51> Assessment and Plan (1) NSTEMI (non-ST elevated myocardial infarction) Status: Acute Assessment and plan: SEE PLAN OF CARE LISTED BELOW. Current Visit: Yes (2) Left lower lobe pneumonia Status: Acute Assessment and plan: SEE PLAN OF CARE LISTED BELOW. Current Visit: Yes (3) Anemia Status: Acute Assessment and plan: SEE PLAN OF CARE LISTED BELOW. Current Visit: Yes (4) Chronic obstructive pulmonary disease Status: Chronic Assessment and plan: SEE PLAN OF CARE LISTED BELOW. Current Visit: No (5) Dyslipidemia Status: Chronic Assessment and plan: SEE PLAN OF CARE LISTED BELOW. Current Visit: Yes (6) Hypertension Status: Chronic Assessment and plan: SEE PLAN OF CARE LISTED BELOW. 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 Current Visit: No (9) Coronary artery disease Status: Chronic Assessment and plan: SEE PLAN OF CARE LISTED BELOW. Current Visit: Yes Qualifiers: Coronary Disease-Associated Artery/Lesion type: [place] artery [place] vs. transplanted heart: [place] heart Cardiology - PN: Subj Interval history: TRANSPORT CONDUCTOR: DR. 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 Last cardiac catheterization October 11, 2007 revealed: EF 35%, diffuse [place] vessel calcification with severe left main disease, severe proximal LAD disease, moderate diffuse circumflex disease and occluded right coronary artery. ALEXANDER to LAD was patent, SVG to OM4 occluded. Sequential vein graft to PDA posterior branch was patent but had moderate diffuse disease. Admitted November 13, 2016 for shortness of breath and chest pain. Was found to have a left lower lobe pneumonia, elevated troponin 3.310, abnormal EKG, and acute CHF (pBNP 3067). She is currently being treated for pneumonia, NSTEMI and CHF. November 14, 2016 echo: EF 35%, moderate global hypokinesis, grade 2 diastolic dysfunction, PAP 50 mmHg. 2016: Patient continues to improve over the weekend. Today, she has begun ambulating. Still having significant amount of dyspnea at rest and with exertion. She is experiencing chest pain described as chest tightness when taking deep breaths. Continues to cough and is beginning to produce a thick sputum. Leukocytosis has improved, no longer febrile. Patient's blood pressure is well controlled on Valsartan and Bystolic. Tolerating aspirin, Plavix, isosorbide mononitrate and Atorvastatin. At some point, patient may be considered for possible cardiac catheterization. Will further discuss with Dr. Otoole and await additional recommendations. 2016: Patient has continued to improve. She continues to have productive cough and dyspnea. O2 saturations ranging from 90-93 on 2 L nasal cannula. She continues to be afebrile. Leukocytosis is improving. Today white blood cell count 13.2. She tells me that she is experiencing chest pain with coughing and deep breathing. Cardiac biomarkers are trending down. Vital signs are stable. Tolerating aspirin, Plavix, Imdur and atorvastatin well. At some point, patient may be considered for possible cardiac catheterization. Will further discuss with Dr. Otoole and await additional recommendations. 2016: Patient is doing much better at this morning. Patient reports that she feels that she will be able to lie flat for heart catheterization tomorrow. White blood cell count improving, today 12.5. Risk and benefits of this procedure were reviewed with the patient. She agrees to proceed with this tomorrow morning. We will keep patient n.p.o. after midnight tonight and schedule left heart cath tomorrow morning at [address] Jori Acevedo. I's and O's have been reviewed. Her weight is up 1 pound. I suspect that this is inaccurate as she is diuresing well with IV Lasix. BNP is trending downward. At this point, we will continue with current medical therapy and plan for heart catheterization in the morning. She will be n.p.o. after midnight. I have discussed this case with Dr. walker as well as with Dr. Otoole. Further plan and addendum to follow. IMPRESSION AND PLAN: 1. LLL CAP - Improving. Continue antibiotics, incentive spirometry and respiratory treatments. 2. NSTEMI - Risk and benefits of heart catheterization were reviewed with the patient. She agrees to proceed with this in the morning. We will keep patient n.p.o. after midnight and plan for heart catheterization tomorrow per Dr. Jori Acevedo. 3. KNOWN CAD - Continue aspirin, Plavix, beta-nini, ARB, lipid-lowering agent. 4. ICM - EF 35%. EF was 35% 2007. This is not a new diagnosis. 5. ACUTE CHF - Secondary to systolic dysfunction (EF 35%), NYHA class III. Diuresing well with IV Lasix. BNP trending down. Orthopnea improving. Continue with afterload reduction, diuretics, daily weights and strict I&O. 6. HYPERTENSION - Tolerating appropriate medications. Well controlled. 7. DYSLIPIDEMIA - LDL 33. Continue Atorvastatin 8. ADVANCED AGE - Continue current plan of care 9. ANEMIA - Stable on Plavix, Aspirin. Stool negative for occult blood. Exam (Progress Note) - Constitutional Vitals: Period Temp Pulse Resp BP Sys/Ch Pulse Ox Last 24 Hr 96.9 F-97.9 F 51-88 16-20 91-116/47-59 86-97 Exam: General: [Thin, small framed white female. In no apparent distress. Pleasant and cooperative. ] HEENT: [PERRL, normocephalic, atraumatic. Mucous membranes moist. No jaundice noted. Conjunctiva moist and clear, sclerae anicteric] Neck: No obvious JVD/HJR, no thyromegaly or lymphadenopathy noted. No carotid bruit appreciated Cardiac: [Regular rate and rhythm.] [No obvious murmur, rub or gallop.] Lungs: Clear to auscultation. ] Oxygen in use via nasal cannula Abdomen: Soft, bowel sounds normoactive. Nontender and nondistended. No abdominal bruit or thrill noted. No masses noted. Musculoskeletal: No fluid collection. Decreased range of motion is noted. Extremities: No clubbing, cyanosis noted. [ No edema noted.] Upper extremity pulses 2+. Lower extremity pulses 2+. Capillary refill less than 3 seconds. Skin: No unusual lesions or rashes. No skin breakdown appreciated. Neuro: Awake, alert and oriented 3. Moves all extremities well without hemiparesis or paralysis. No essential tremor is appreciated. Result/EKG - Labs CBC & BMP: 11/18/16 05:03 11/18/16 05:03 Lab Results: I have reviewed the past 24 hour labs Labs: Laboratory Results - last 24 hr 11/18/16 11/18/1611/18/17 05:03 05:03 05:03 WBC 12.9 H RBC 3.43 L Hgb 10.6 L Hct 30.4 L MCV 88.6 MCH 31 MCHC 34.9 RDW 14.7 Plt Count 248 D MPV 11.4 Neut % (Auto) 69.7 Lymph % (Auto) 13.3 L [place] % (Auto) 11.0 Eos % (Auto) 4.6 Baso % (Auto) 0.5 Neut # (Auto) 9.0 H Lymph # (Auto) 1.7 [place] # (Auto) 1.4 H Eos # (Auto) 0.6 Baso # (Auto) 0.1 Immature Gran % 0.9 Nucleated RBC % 0.0 Immature Gran # 0.11 Nucleated RBCs # 0.00 Immature Plt Fraction 0.0 Sodium 138 Potassium 3.9 Chloride 100 Carbon Dioxide 30 Anion Gap 11.9 BUN 23 H Creatinine 0.90 GFR Calculation 45 BUN/Creatinine Ratio 25.00 H Glucose 111 H Calculated Osmolality 279.7 Calcium 10.4 H Magnesium 2.0 B-Natriuretic Peptide 1723 H Specialty Discharge - Follow Up or Referrals <Hannah Otoole - Last Filed: 11/18/16 18:50> Cardiology - PN: Subj Interval history: I have personally interviewed and examined the patient, reviewed the chart and discussed medical decision-making with practitioner Sami. I have read this note and agree with the documentation herein. I have been discussing with the patient that when she is able to lay flat we will proceed with cardiac catheterization. We discussed that this would likely commence in the morning. I discussed the case with Dr. Acevedo. He tells me he later went to discuss cardiac catheterization with the patient and she is declining at this time at her daughter's urging, she would like to "get over her lung condition". We will continue to follow her clinical evolution. She continues to require diuresis. Exam (Progress Note) - Constitutional Vitals: Period Temp Pulse Resp BP Sys/Hc Pulse Ox Last 24 Hr 96.9 F-97.9 F 51-87 18-20 93-116/47-62 89-98 Result/EKG - Labs CBC & BMP: 11/18/16 05:03 11/18/16 05:03 Labs: Laboratory Results - last 24 hr 11/18/16 11/18/1611/18/17 05:03 05:03 05:03 WBC 12.9 H RBC 3.43 L Hgb 10.6 L Hct 30.4 L MCV 88.6 MCH 31 MCHC 34.9 RDW 14.7 Plt Count 248 D MPV 11.4 Neut % (Auto) 69.7 Lymph % (Auto) 13.3 L [place] % (Auto) 11.0 Eos % (Auto) 4.6 Baso % (Auto) 0.5 Neut # (Auto) 9.0 H Lymph # (Auto) 1.7 [place] # (Auto) 1.4 H Eos # (Auto) 0.6 Baso # (Auto) 0.1 Immature Gran % 0.9 Nucleated RBC % 0.0 Immature Gran # 0.11 Nucleated RBCs # 0.00 Immature Plt Fraction 0.0 INR PT Patient/Control Mix Circ Anticoag PTT Sodium 138 Potassium 3.9 Chloride 100 Carbon Dioxide 30 Anion Gap 11.9 BUN 23 H Creatinine 0.90 GFR Calculation 45 BUN/Creatinine Ratio 25.00 H Glucose 111 H Calculated Osmolality 279.7 Calcium 10.4 H Magnesium 2.0 B-Natriuretic Peptide 1723 H 11/18/16 10:11 WBC RBC Hgb Hct MCV MCH MCHC RDW Plt Count MPV Neut % (Auto) Lymph % (Auto) [place] % (Auto) Eos % (Auto) Baso % (Auto) Neut # (Auto) Lymph # (Auto) [place] # (Auto) Eos # (Auto) Baso # (Auto) Immature Gran % Nucleated RBC % Immature Gran # Nucleated RBCs # Immature Plt Fraction INR 1.0 PT Patient/Control Mix 10.7 Circ Anticoag PTT 30.0 Sodium Potassium Chloride Carbon Dioxide Anion Gap BUN Creatinine GFR Calculation BUN/Creatinine Ratio Glucose Calculated Osmolality Calcium Magnesium B-Natriuretic Peptide
[2016-11-18] MEDS ORDERED: MAGNESIUM SULF RIDER 2 GM in PREMIX 1 EACH IV PRN (10:10)
[2016-11-18] MEDS ORDERED: POTASSIUM CHLORIDE RIDER 10 MEQ in PREMIX 1 EACH IV PRN (10:10)
[2016-11-18 11:02] LABS: PT Patient Result 10.7 SECS
[2016-11-18] MEDS: MORPHINE 2 MG/1 ML SYRINGE IV PRN (11:24)
--- NOTE | 2016-11-18 11:33 | XRay Report ---
2 view chest 11/18/2016 4:00 AM Indication: Shortness of breath Comparison: November 15, 2016 0808 hours Findings: Cardiomediastinal contours are stable with sternotomy wires and midline and small hiatal hernia. Continued clearing of the superimposed left upper and lower lung opacities. No acute osseous abnormalities. Visualized upper abdomen demonstrates no acute pathology. Impression: Continued clearing of the acute left upper and lower lobe consolidations superimposed on chronic interstitial fibrosis PROCEDURE INTERPRETED AT [facility] DEPARTMENT OF RADIOLOGY Final Report Signed by: Darinel Alamo
[2016-11-18] MEDS: ENOXAPARIN 40 MG/0.4 ML SYRINGE SUBCUT SCH (16:57)
[2016-11-18] MEDS: AZITHROMYCIN INJ 500 MG in SODIUM CHLORIDE 0.9% 250 ML IV SCH (18:02)
--- NOTE | 2016-11-18 20:15 | Event Note ---
I came to discuss the heart cath procedure and risk and benefits for the patient. As I started the discussion she said that she and her daughter have decided to decline the cath at this time. I will be happy to re-see her at any time and rethink this later if she and her daughter changes her mind. These decisions happen after Dr. Otoole is seen the patient.
[2016-11-18] MEDS: MORPHINE ER 15 MG TABLET PO SCH (21:20)
[2016-11-18] MEDS: ATORVASTATIN 20 MG TABLET PO SCH (21:20)
[2016-11-18] MEDS: VALSARTAN 80 MG TABLET PO SCH (21:29)
[2016-11-19] MEDS: CLINDAMYCIN INJ 300 MG in PREMIX 1 EACH IV SCH ×4 (00:10→23:48)
[2016-11-19 05:44] LABS: Basophils # 0.1 10*3/uL (0.0-0.2); Basophils % 0.4 % (0.0-0.8); Eosinophils # 0.6 10*3/uL (0.0-0.87); Hematocrit 29.3 VOL% (35.7-47.0); Hemoglobin 10.1 GM/DL (12.0-16.0); Immature Granulocytes % 0.6 %; Immature Granulocytes Absolute 0.08 #; Lymphocytes # 1.5 10*3/uL (1.4-4.0); Lymphocytes % 11.7 % (21.3-54.2); Mean Corpuscular HGB Conc 34.5 GM/DL (32-36); Mean Corpuscular Hemoglobin 31 PG (27-34); Mean Corpuscular Volume 90.4 FL (87-102); Mean Platelet Volume 11.6 FL (9.6-12.0); Monocytes # 1.2 10*3/uL (0.11-0.8); Monocytes % 9.4 % (1.7-12.7); Neutrophils # 9.2 10*3/uL (1.4-7.4); Neutrophils % 72.9 % (38.7-73.9); Platelet Count 271 T/CUMM (130-400); Red Blood Count 3.24 MC/CUMM (3.8-5.5); Red Cell Distribution Width 14.9 % (9.3-17.3); White Blood Count 12.6 T/CUMM (4-12)
[2016-11-19 06:13] LABS: Calcium 10.3 MG/DL (8.5-10.1)
[2016-11-19 06:14] LABS: Magnesium 2.2 MG/DL (1.8-2.4); Osmolality,Calculated 282.5 MOS/KG (273-304); Potassium 4.4 MMOL/L (3.5-5.1)
[2016-11-19] MEDS: ALBUTEROL/IPRATROPIUM 3 ML NEB RESP TX SCH ×4 (07:28→19:41)
--- NOTE | 2016-11-19 08:10 | Family Practice Progress Note ---
Family Practice - PN: Subj Interval history: Patient states she is feeling much better and certainly breathing better. She elected not to proceed with left heart catheterization at this time. Repeat chest x-ray shows prominent improvement in the left basilar changes. She does have some interstitial fibrotic changes in her left upper lobe that is unchanged. Her blood cultures were positive for Streptococcus anginosus and staphylococcus epidermidis. Patient certainly improving on present antibiotics. She had 1 blood cultures show gram-positive rods. With her list of allergies and this cocktail of microbes I told her she should stay in the hospital through the weekend. She was agreeable to this. We will continue present IV antibiotic therapy. Exam (Progress Note) - Constitutional Vitals: Period Temp Pulse Resp BP Sys/Ch Pulse Ox Last 24 Hr 97.6 F-98.8 F 60-87 16-20 103-116/51-62 86-99 Exam: Objective a well-developed white female no acute distress. She states she had a good night. She has no dyspnea at rest. Cardiovascular: The heart rates regular without murmurs or gallops. Respiratory: Patient has improvement in her bibasilar rales. Abdomen: Abdomen soft and nontender to palpation. Results - Labs CBC & BMP: 11/19/16 04:11 11/19/16 04:11 Lab Results: I have reviewed the past 24 hour labs Assessment and Plan (1) Left lower lobe pneumonia Status: Acute Assessment and plan: 11/16/2016: Patient states she certainly feeling much better. She states she is not having any fever or chills. She is having angina which is quite common for her. 11/17/2016: Patient's clinical course is 1 of improvement. 11/18/2016: Repeat chest x-ray is pending this morning. 11/19/2016: Chest x-ray just shows marked improvement in left basilar changes. Current Visit: Yes (2) NSTEMI (non-ST elevated myocardial infarction) Status: Acute Assessment and plan: 11/18/2016: Dr. Otoole plans on performing left heart catheterization on her in a day or so. Patient is certainly improved clinically from her pneumonia to proceed. 11/19/2016: Patient is having no further chest pain and she declines left heart catheterization. Current Visit: Yes Specialty Discharge - Follow Up or Referrals
--- NOTE | 2016-11-19 08:41 | EKG Report ---
Stationary ECG Study [facility] Test Date: 11/19/2016 7:16:47 AM Pat Name: ANUPAM KAUFMAN Department: Room: 271 Gender: F Branch Director: CHRISTY : [id number] Requested by: Stephanie Gallardo Order Number: [id number] Reading MD: SYDNEE BUNCH Intervals [place] Rate: 80 P: 49 VA: 181 QRS: 60 QRSD: 112 T: 221 QT: 407 QTc: 443 Interpretive Statements SINUS RHYTHM WITH FREQUENT SUPRAVENTRICULAR PREMATURE COMPLEXES MODERATE INTRAVENTRICULAR CONDUCTION DELAY ST DEVIATION AND MODERATE T-WAVE ABNORMALITY, CONSIDER LATERAL ISCHEMIA ST DEVIATION AND MODERATE T-WAVE ABNORMALITY, CONSIDER INFERIOR ISCHEMIA INTERPRETATION BASED ON A DEFAULT AGE OF 40 YEARS Electronically Signed On 11-19-16 10:22:26 CDT by SYDNEE BUNCH [email or web address]
[2016-11-19] MEDS: ISOSORBIDE MONONITRATE 60 MG TABLET PO SCH (08:46)
[2016-11-19] MEDS: MEGESTROL 400 MG/10 ML UDCUP PO SCH (08:46)
[2016-11-19] MEDS: NEBIVOLOL 5 MG TABLET PO SCH (08:46)
[2016-11-19] MEDS: RANOLAZINE 500 MG TABLET PO SCH (08:46)
[2016-11-19] MEDS: ASPIRIN EC 81 MG TABLET PO SCH (08:46)
[2016-11-19] MEDS: CLOPIDOGREL 75 MG TABLET PO SCH (08:46)
[2016-11-19] MEDS: LEVOTHYROXINE 100 MCG TABLET PO SCH (08:47)
[2016-11-19] MEDS: PANTOPRAZOLE 40 MG TABLET PO SCH (08:47)
[2016-11-19] MEDS: DOCUSATE SODIUM 100 MG CAPSULE PO SCH ×2 (08:47→21:22)
[2016-11-19] MEDS: MORPHINE ER 30 MG TABLET PO SCH (08:47)
[2016-11-19] MEDS: FUROSEMIDE 40 MG/4 ML VIAL IV SCH ×2 (08:47→16:57)
[2016-11-19] MEDS ORDERED: diphenhydrAMINE CAP 25 MG CAPSULE PO ONE (09:00)
[2016-11-19] MEDS ORDERED: DIAZEPAM 5 MG TABLET PO ONE (09:00)
[2016-11-19] MEDS: ENOXAPARIN 40 MG/0.4 ML SYRINGE SUBCUT SCH (14:44)
[2016-11-19] MEDS: AZITHROMYCIN INJ 500 MG in SODIUM CHLORIDE 0.9% 250 ML IV SCH (14:45)
[2016-11-19] MEDS: MORPHINE 2 MG/1 ML SYRINGE IV PRN (15:24)
--- NOTE | 2016-11-19 17:06 | Cardiology Progress Note ---
James Fernandes Vanessa, RN, am scribing for, and in the presence of, Hannah Otoole MD 17:06. Assessment and Plan - Time spent with patient Time spent with patient: Greater than 30 minutes (1) NSTEMI (non-ST elevated myocardial infarction) Status: Acute Assessment and plan: SEE PLAN OF CARE LISTED BELOW. Current Visit: Yes (2) Anemia Status: Acute Assessment and plan: SEE PLAN OF CARE LISTED BELOW. Current Visit: Yes (3) Left lower lobe pneumonia Status: Acute Assessment and plan: SEE PLAN OF CARE LISTED BELOW. Current Visit: Yes (4) Coronary artery disease Status: Chronic Assessment and plan: SEE PLAN OF CARE LISTED BELOW. Current Visit: Yes Qualifiers: Coronary Disease-Associated Artery/Lesion type: [place] artery [place] vs. transplanted heart: [place] heart (5) Dyslipidemia Status: Chronic Assessment and plan: SEE PLAN OF CARE LISTED BELOW. Current Visit: Yes (6) Gastroesophageal reflux with stricture Status: Chronic Assessment and plan: SEE PLAN OF CARE LISTED BELOW. Current Visit: Yes (7) Hypertension Status: Chronic Assessment and plan: SEE PLAN OF CARE LISTED BELOW. Current Visit: Yes (8) Ischemic cardiomyopathy Status: Chronic Assessment and plan: SEE PLAN OF CARE LISTED BELOW. Current Visit: Yes (9) Chronic obstructive pulmonary disease Status: Chronic Assessment and plan: SEE PLAN OF CARE LISTED BELOW. Current Visit: No (10) Hx of CABG Status: Chronic Assessment and plan: SEE PLAN OF CARE LISTED BELOW. Current Visit: Yes Cardiology - PN: Subj Interval history: PRIMARY PARTS CATALOGUER: DR. JACOBSON SUMMARY: Ms. Sanchez, 81-year-old WF, PMHx hypertension, dyslipidemia, CAD, COPD. Patient is status post CABG 4 in September 1998 with ALEXANDER to LAD, SVG to OM4, SVG to PDA, and SVG to PLVB. Ischemic cardiomyopathy and acute on chronic systolic congestive heart failure due to decreased EF 35%. Last cardiac cath September 2007 with diffuse [place] vessel calcification, ALEXANDER graft patent, SVG to OM occluded , and vein graft to PDA and PLV branch were patent with moderate, diffuse disease. Patient currently admitted to telemetry unit on 11/13 for shortness of breath and chest pain. Since admission, diagnostic workup has revealed left lower lobe pneumonia and acute CHF (BNP 3067). EKG was also abnormal and troponin +3.31. Additional treatment has also been initiated for non-ST elevation [place]. Echo on 11/14 LVEF 35% with moderate global hypokinesis, moderate diastolic dysfunction, and pulmonary hypertension with PA pressure 50 mmHg. 2016: Ms. Sanchez is sitting up on side of bed this afternoon. No acute distress this afternoon. Eating lunch with good appetite. Sinus rhythm per telemetry monitoring, HR averaging and 70s. SBP 100-115 mmHg. Yesterday evening, after being seen by Dr. Acevedo to discuss elective left heart catheterization, patient and daughter declined cath at this time saying they would feel more comfortable proceeding once pneumonia and no other acute illnesses are resolved. Reports dyspnea continues to improve. Denies chest pain. Using supplemental oxygen as needed. ASSESSMENT/PLAN: 1. NSTEMI - Patient has now declined [facility] saying that she would feel more comfortable proceeding once pneumonia is completely resolved. No anginal complaint this morning. Continue current plan of care. 2. LLL CAP - Continues to improve. Chest x-ray today with continued clearing of left upper and lower lobe consolidation. Continue antibiotics, incentive spirometry and respiratory treatments. 3. KNOWN CAD / HISTORY OF CABG - Continue aspirin, Plavix, beta-nini, ARB, and statin. 4. ISHEMIC CARDIOMYOPATHY - EF 35%. EF was 35% 2007. This is not a new diagnosis. 5. ACUTE CHF - Secondary to systolic dysfunction (EF 35%), NYHA class III. Diuresing well with IV Lasix. BNP continuing to trend down and orthopnea continues to improve. Continue with afterload reduction, diuretics, daily weights and strict I&O, and BMP. 6. HYPERTENSION - Tolerating appropriate medications. Well controlled. Continue to monitor and adjust as indicated. 7. DYSLIPIDEMIA - LDL 33. Continue atorvastatin 8. ADVANCED AGE - Continue current plan of care 9. ANEMIA - Stable on Plavix, ASA. Stool negative for occult blood. Continue to monitor closely. Exam (Progress Note) - Constitutional Vitals: Period Temp Pulse Resp BP Sys/Ch Pulse Ox Last 24 Hr 97.6 F-98.8 F 69-87 16-20 97-116/48-60 86-99 Exam: General: Thin, small framed, elderly female. No acute distress. Pleasant and cooperative. HEENT: PERRL, normocephalic, atraumatic. Mucous membranes moist. No jaundice noted. Conjunctiva moist and clear, sclerae anicteric Neck: Nno thyromegaly or lymphadenopathy noted. No carotid bruit. No tenderness. Cardiac: Regular rate and rhythm. No obvious murmur, rub or gallop. No tachycardia, bradycardia. Lungs: Clear to auscultation. No rhonchi, rales, stridor, wheeze. Supplemental oxygen via nasal cannula. Abdomen: Soft, bowel sounds normal. Nontender, nondistended. No firmness or guarding. No abdominal bruit or thrill noted. No masses noted. Musculoskeletal: No fluid collection. Decreased range of motion is noted. Extremities: No clubbing, cyanosis noted. No edema noted. Upper and lower extremity pulses 2+. Capillary refill less than 3 seconds. Skin: No unusual lesions or rashes. No skin breakdown appreciated. Skin is warm , dry, intact. Neuro: Awake, alert and oriented 3. Moves all extremities well without hemiparesis or paralysis. Grossly intact. No essential tremor is appreciated. Psych: Normal affect, normal mood. Patient does not appear to be anxious or depressed. Result/EKG - Labs CBC & BMP: 11/19/16 04:11 11/19/16 04:11 Lab Results: I have reviewed the past 24 hour labs Labs: Laboratory Results - last 24 hr 11/19/16 11/19/16 04:11 04:11 WBC 12.6 H RBC 3.24 L Hgb 10.1 L Hct 29.3 L MCV 90.4 MCH 31 MCHC 34.5 RDW 14.9 Plt Count 271 MPV 11.6 Neut % (Auto) 72.9 Lymph % (Auto) 11.7 L [place] % (Auto) 9.4 Eos % (Auto) 5.0 Baso % (Auto) 0.4 Neut # (Auto) 9.2 H Lymph # (Auto) 1.5 [place] # (Auto) 1.2 H Eos # (Auto) 0.6 Baso # (Auto) 0.1 Immature Gran % 0.6 Nucleated RBC % 0.0 Immature Gran # 0.08 Nucleated RBCs # 0.00 Immature Plt Fraction 0.0 Sodium 139 Potassium 4.4 Chloride 101 Carbon Dioxide 33 H Anion Gap 9.4 BUN 30 H Creatinine 1.10 H GFR Calculation 35 BUN/Creatinine Ratio 27.00 H Glucose 97 Calculated Osmolality 282.5 Calcium 10.3 H Magnesium 2.2 - Diagnostic Findings Procedure: Chest x-ray: image reviewed by me, report reviewed by me - EKG EKG results: interpreted by me, no acute changes EKG shows: sinus rhythm Specialty Discharge - Follow Up or Referrals IXiang Jennifer, MD, personally performed the services described in this documentation, ascribed by Krysten Ramirez RN in my presence, and it is both accurate and complete 706 .
[2016-11-19] MEDS: VALSARTAN 80 MG TABLET PO SCH (21:21)
[2016-11-19] MEDS: MORPHINE ER 15 MG TABLET PO SCH (21:22)
[2016-11-19] MEDS: ATORVASTATIN 20 MG TABLET PO SCH (21:22)
[2016-11-19] MEDS ORDERED: DULoxetine 30 MG CAPSULE PO SCH (22:30)
[2016-11-20 05:13] LABS: Basophils # 0.1 10*3/uL (0.0-0.2); Basophils % 0.4 % (0.0-0.8); Eosinophils % 7.3 % (0.00-10.9); Hematocrit 29.5 VOL% (35.7-47.0); Hemoglobin 10.1 GM/DL (12.0-16.0); Immature Granulocytes % 0.5 %; Immature Granulocytes Absolute 0.06 #; Lymphocytes # 1.8 10*3/uL (1.4-4.0); Lymphocytes % 13.6 % (21.3-54.2); Mean Corpuscular HGB Conc 34.2 GM/DL (32-36); Mean Corpuscular Hemoglobin 31 PG (27-34); Mean Corpuscular Volume 89.9 FL (87-102); Mean Platelet Volume 11.1 FL (9.6-12.0); Neutrophils # 9.1 10*3/uL (1.4-7.4); Neutrophils % 70.2 % (38.7-73.9); Platelet Count 283 T/CUMM (130-400); Red Blood Count 3.28 MC/CUMM (3.8-5.5); Red Cell Distribution Width 14.7 % (9.3-17.3)
[2016-11-20 05:46] LABS: Calcium 10.3 MG/DL (8.5-10.1); Magnesium 2.2 MG/DL (1.8-2.4); Osmolality,Calculated 282.7 MOS/KG (273-304); Potassium 4.2 MMOL/L (3.5-5.1)
[2016-11-20] MEDS: ALBUTEROL/IPRATROPIUM 3 ML NEB RESP TX SCH ×4 (07:29→20:40)
[2016-11-20] MEDS: CLOPIDOGREL 75 MG TABLET PO SCH (08:24)
[2016-11-20] MEDS: ISOSORBIDE MONONITRATE 60 MG TABLET PO SCH (08:24)
[2016-11-20] MEDS: PANTOPRAZOLE 40 MG TABLET PO SCH (08:24)
[2016-11-20] MEDS: DOCUSATE SODIUM 100 MG CAPSULE PO SCH ×2 (08:24→20:32)
[2016-11-20] MEDS: ASPIRIN EC 81 MG TABLET PO SCH (08:24)
[2016-11-20] MEDS: NEBIVOLOL 5 MG TABLET PO SCH (08:24)
[2016-11-20] MEDS: LEVOTHYROXINE 100 MCG TABLET PO SCH (08:25)
[2016-11-20] MEDS: MEGESTROL 400 MG/10 ML UDCUP PO SCH (08:25)
[2016-11-20] MEDS: RANOLAZINE 500 MG TABLET PO SCH (08:25)
[2016-11-20] MEDS: MORPHINE ER 30 MG TABLET PO SCH (08:25)
[2016-11-20] MEDS: FUROSEMIDE 40 MG/4 ML VIAL IV SCH (08:27)
[2016-11-20] MEDS: CLINDAMYCIN INJ 300 MG in PREMIX 1 EACH IV SCH ×2 (08:33→17:30)
--- NOTE | 2016-11-20 12:39 | Cardiology Progress Note ---
Assessment and Plan (1) NSTEMI (non-ST elevated myocardial infarction) Status: Acute Assessment and plan: SEE PLAN OF CARE LISTED BELOW. Current Visit: Yes (2) Anemia Status: Acute Assessment and plan: SEE PLAN OF CARE LISTED BELOW. Current Visit: Yes (3) Left lower lobe pneumonia Status: Acute Assessment and plan: SEE PLAN OF CARE LISTED BELOW. Current Visit: Yes (4) Coronary artery disease Status: Chronic Assessment and plan: SEE PLAN OF CARE LISTED BELOW. Current Visit: Yes Qualifiers: Coronary Disease-Associated Artery/Lesion type: [place] artery [place] vs. transplanted heart: [place] heart (5) Dyslipidemia Status: Chronic Assessment and plan: SEE PLAN OF CARE LISTED BELOW. Current Visit: Yes (6) Gastroesophageal reflux with stricture Status: Chronic Assessment and plan: SEE PLAN OF CARE LISTED BELOW. Current Visit: Yes (7) Hypertension Status: Chronic Assessment and plan: SEE PLAN OF CARE LISTED BELOW. Current Visit: Yes (8) Ischemic cardiomyopathy Status: Chronic Assessment and plan: SEE PLAN OF CARE LISTED BELOW. Current Visit: Yes (9) Chronic obstructive pulmonary disease Status: Chronic Assessment and plan: SEE PLAN OF CARE LISTED BELOW. Current Visit: No (10) Hx of CABG Status: Chronic Assessment and plan: SEE PLAN OF CARE LISTED BELOW. Current Visit: Yes Cardiology - PN: Subj Interval history: SUMMARY: Ms. Sanchez, 81-year-old WF, PMHx hypertension, dyslipidemia, CAD, COPD. Patient is status post CABG 4 in September 1998 with ALEXANDER to LAD, SVG to OM4, SVG to PDA, and SVG to PLVB. Ischemic cardiomyopathy and acute on chronic systolic congestive heart failure due to decreased EF 35%. Last cardiac cath September 2007 with diffuse [place] vessel calcification, ALEXANDER graft patent, SVG to OM occluded , and vein graft to PDA and PLV branch were patent with moderate, diffuse disease. Patient currently admitted to telemetry unit on 11/13 for shortness of breath and chest pain. Since admission, diagnostic workup has revealed left lower lobe pneumonia and acute CHF (BNP 3067). EKG was also abnormal and troponin +3.31. Additional treatment has also been initiated for non-ST elevation [place]. Echo on 11/14 LVEF 35% with moderate global hypokinesis, moderate diastolic dysfunction, and pulmonary hypertension with PA pressure 50 mmHg. We are planning for left heart catheterization but she declined on Tuesday, wants to wait until "her lungs are better". 2016: Clinically she is improving. She is not nearly short of breath and when I am in the room her oxygen is off, she is lying comfortably recumbent. She does not know if she can lie flat. She is ambulating well per the family. She denies any chest pain. Her ins and outs do not demonstrate a diuresis, and her weight is increased 2 kg. The ins and outs may not be accurate because she does not have a Manuel catheter. ASSESSMENT/PLAN: 1. NSTEMI - Patient has now declined [facility] saying that she would feel more comfortable proceeding once pneumonia is completely resolved. No anginal complaint this morning. Continue current plan of care. Would readdress the possibility of cardiac catheterization next week. 2. LLL CAP - Continues to improve. 3. KNOWN CAD / HISTORY OF CABG - Continue aspirin, Plavix, beta-nini, ARB, and statin. 4. ISHEMIC CARDIOMYOPATHY - EF 35%. EF was 35% 2007. This is not a new diagnosis. Clinically she seems to be diuresing although the objective data would not support this. We will check a BNP in the morning. I would like to decrease her diuretics. 5. ACUTE CHF - Secondary to systolic dysfunction (EF 35%), NYHA class III. Continue with afterload reduction, diuretics, daily weights and strict I&O, and BMP. See discussion above. 6. HYPERTENSION - Tolerating appropriate medications. Well controlled. 7. DYSLIPIDEMIA - LDL 33. Continue atorvastatin 8. ADVANCED AGE - Continue current plan of care 9. ANEMIA - Stable on Plavix, ASA. Stool negative for occult blood. Continue to monitor closely. I will need to investigate why she is on once daily Ranexa instead of twice daily Exam (Progress Note) - Constitutional Vitals: Period Temp Pulse Resp BP Sys/Ch Pulse Ox Last 24 Hr 96.6 F-99.0 F 74-87 16-20 88-109/43-56 92-99 Exam: General: Thin, small framed, elderly female. No acute distress. Pleasant and cooperative. HEENT: PERRL, normocephalic, atraumatic. Mucous membranes moist. No jaundice noted. Conjunctiva moist and clear, sclerae anicteric Neck: Nno thyromegaly or lymphadenopathy noted. No carotid bruit. No tenderness. Cardiac: Regular rate and rhythm. No obvious murmur, rub or gallop. No tachycardia, bradycardia. Lungs: Clear to auscultation. No rhonchi, rales, stridor, wheeze. Supplemental oxygen via nasal cannula. Abdomen: Soft, bowel sounds normal. Nontender, nondistended. No firmness or guarding. No abdominal bruit or thrill noted. No masses noted. Musculoskeletal: No fluid collection. Decreased range of motion is noted. Extremities: No clubbing, cyanosis noted. No edema noted. Upper and lower extremity pulses 2+. Capillary refill less than 3 seconds. Skin: No unusual lesions or rashes. No skin breakdown appreciated. Skin is warm , dry, intact. Neuro: Awake, alert and oriented 3. Moves all extremities well without hemiparesis or paralysis. Grossly intact. No essential tremor is appreciated. Psych: Normal affect, normal mood. Patient does not appear to be anxious or depressed. Result/EKG - Labs CBC & BMP: 11/20/16 04:34 11/20/16 04:34 Lab Results: I have reviewed the past 24 hour labs Labs: Laboratory Results - last 24 hr 11/20/16 11/20/16 04:34 04:34 WBC 13.0 H RBC 3.28 L Hgb 10.1 L Hct 29.5 L MCV 89.9 MCH 31 MCHC 34.2 RDW 14.7 Plt Count 283 MPV 11.1 Neut % (Auto) 70.2 Lymph % (Auto) 13.6 L [place] % (Auto) 8.0 Eos % (Auto) 7.3 Baso % (Auto) 0.4 Neut # (Auto) 9.1 H Lymph # (Auto) 1.8 [place] # (Auto) 1.0 H Eos # (Auto) 1.0 H Baso # (Auto) 0.1 Immature Gran % 0.5 Nucleated RBC % 0.0 Immature Gran # 0.06 Nucleated RBCs # 0.00 Immature Plt Fraction 0.0 Sodium 138 Potassium 4.2 Chloride 100 Carbon Dioxide 32 Anion Gap 10.2 BUN 35 H Creatinine 1.30 H GFR Calculation 29 BUN/Creatinine Ratio 26.00 H Glucose 95 Calculated Osmolality 282.7 Calcium 10.3 H Magnesium 2.2 Specialty Discharge - Follow Up or Referrals
[2016-11-20] MEDS: ENOXAPARIN 40 MG/0.4 ML SYRINGE SUBCUT SCH (15:05)
[2016-11-20] MEDS: AZITHROMYCIN INJ 500 MG in SODIUM CHLORIDE 0.9% 250 ML IV SCH (15:05)
--- NOTE | 2016-11-20 17:16 | Internal Med Progress Note ---
Assessment and Plan (1) Left lower lobe pneumonia Status: Acute Current Visit: Yes (2) NSTEMI (non-ST elevated myocardial infarction) Status: Acute Current Visit: Yes (3) Coronary artery disease Status: Chronic Current Visit: Yes Qualifiers: Coronary Disease-Associated Artery/Lesion type: [place] artery [place] vs. transplanted heart: [place] heart (4) Hx of CABG Status: Chronic Current Visit: Yes Internal Medicine - PN: Subj Interval history: This is an 81 year old female patient of Dr. Doug Avalos with history of CAD, Ischemic Cardiomyopathy, CABG, COPD, history of breast cancer, HTN, hypothyroid , who had presented to ER with non-STEMI and LLL pneumonia. She was stable on rounds and reported feeling better. Apparently, she is opting for conservative management of significant CAD and has refused cardiac cath. Currently stable. Exam (Progress Note) - Constitutional Vitals: Period Temp Pulse Resp BP Sys/Ch Pulse Ox Last 24 Hr 96.6 F-98.4 F 77-98 16-18 85-108/43-56 92-99 General appearance: no acute distress - Head Head exam: Present: normocephalic - Eye Eye exam: Present: EOMI - Respiratory Respiratory exam: Present: clear to auscultation bilaterally - Cardiovascular Cardiovascular exam: Present: regular rate and rhythm - GI/Abdominal GI/Abdominal exam: Present: soft. Absent: tenderness - Extremities Exam Extremities exam: Absent: edema - Neurological Exam Neurological exam: Present: alert, oriented X3 - Psychiatric Psychiatric exam: Present: normal mood - Skin Skin exam: Present: warm, dry Results - Labs CBC & BMP: 11/22/16 04:25 11/22/16 04:25 Specialty Discharge - Follow Up or Referrals
[2016-11-20] MEDS: VALSARTAN 80 MG TABLET PO SCH (20:32)
[2016-11-20] MEDS: MORPHINE ER 15 MG TABLET PO SCH (20:32)
[2016-11-20] MEDS: ATORVASTATIN 20 MG TABLET PO SCH (20:32)
[2016-11-20] MEDS: MORPHINE 2 MG/1 ML SYRINGE IV PRN (21:35)
[2016-11-21] MEDS: CLINDAMYCIN INJ 300 MG in PREMIX 1 EACH IV SCH ×3 (00:24→15:55)
[2016-11-21 04:33] LABS: Basophils # 0.1 10*3/uL (0.0-0.2); Basophils % 0.3 % (0.0-0.8); Eosinophils % 5.5 % (0.00-10.9); Hematocrit 27.9 VOL% (35.7-47.0); Hemoglobin 9.5 GM/DL (12.0-16.0); Immature Granulocytes % 0.6 %; Lymphocytes # 1.5 10*3/uL (1.4-4.0); Lymphocytes % 8.7 % (21.3-54.2); Mean Corpuscular HGB Conc 34.1 GM/DL (32-36); Mean Corpuscular Hemoglobin 31 PG (27-34); Mean Corpuscular Volume 90.6 FL (87-102); Monocytes # 1.2 10*3/uL (0.11-0.8); Monocytes % 6.6 % (1.7-12.7); Neutrophils # 13.6 10*3/uL (1.4-7.4); Neutrophils % 78.3 % (38.7-73.9); Platelet Count 293 T/CUMM (130-400); Red Blood Count 3.08 MC/CUMM (3.8-5.5); Red Cell Distribution Width 14.8 % (9.3-17.3); White Blood Count 17.4 T/CUMM (4-12)
[2016-11-21 04:59] LABS: Band Neutrophils 1 % (0-10); Eosinophils 4 % (0-10); Hypochromasia 2+; Lymphocytes 8 % (20-55); Platelet Estimate Normal; Segmented Neutrophils 78 % (50-85); Total Cells Counted 100
[2016-11-21 05:17] LABS: Calcium 10.1 MG/DL (8.5-10.1); Magnesium 2.3 MG/DL (1.8-2.4); Osmolality,Calculated 284.8 MOS/KG (273-304); Potassium 4.5 MMOL/L (3.5-5.1)
[2016-11-21] MEDS: ALBUTEROL/IPRATROPIUM 3 ML NEB RESP TX SCH ×4 (07:15→19:36)
[2016-11-21] MEDS: MEGESTROL 400 MG/10 ML UDCUP PO SCH (08:34)
[2016-11-21] MEDS: DOCUSATE SODIUM 100 MG CAPSULE PO SCH ×2 (08:34→21:23)
[2016-11-21] MEDS: MORPHINE ER 30 MG TABLET PO SCH (08:34)
[2016-11-21] MEDS: ASPIRIN EC 81 MG TABLET PO SCH (08:34)
[2016-11-21] MEDS: PANTOPRAZOLE 40 MG TABLET PO SCH (08:34)
[2016-11-21] MEDS: CLOPIDOGREL 75 MG TABLET PO SCH (08:34)
[2016-11-21] MEDS: LEVOTHYROXINE 100 MCG TABLET PO SCH (08:34)
[2016-11-21] MEDS: ISOSORBIDE MONONITRATE 60 MG TABLET PO SCH (08:34)
[2016-11-21] MEDS: NEBIVOLOL 5 MG TABLET PO SCH (08:34)
[2016-11-21] MEDS: RANOLAZINE 500 MG TABLET PO SCH (08:34)
[2016-11-21] MEDS ORDERED: FUROSEMIDE 40 MG/4 ML VIAL IV SCH (09:00)
[2016-11-21] MEDS: ENOXAPARIN 30 MG/0.3 ML SYRINGE SUBCUT SCH (15:54)
[2016-11-21] MEDS: AZITHROMYCIN INJ 500 MG in SODIUM CHLORIDE 0.9% 250 ML IV SCH (16:47)
--- NOTE | 2016-11-21 17:02 | Cardiology Progress Note ---
Assessment and Plan (1) NSTEMI (non-ST elevated myocardial infarction) Status: Acute Assessment and plan: SEE PLAN OF CARE LISTED BELOW. Current Visit: Yes (2) Anemia Status: Acute Assessment and plan: SEE PLAN OF CARE LISTED BELOW. Current Visit: Yes (3) Left lower lobe pneumonia Status: Acute Assessment and plan: SEE PLAN OF CARE LISTED BELOW. Current Visit: Yes (4) Coronary artery disease Status: Chronic Assessment and plan: SEE PLAN OF CARE LISTED BELOW. Current Visit: Yes Qualifiers: Coronary Disease-Associated Artery/Lesion type: [place] artery [place] vs. transplanted heart: [place] heart (5) Dyslipidemia Status: Chronic Assessment and plan: SEE PLAN OF CARE LISTED BELOW. Current Visit: Yes (6) Gastroesophageal reflux with stricture Status: Chronic Assessment and plan: SEE PLAN OF CARE LISTED BELOW. Current Visit: Yes (7) Hypertension Status: Chronic Assessment and plan: SEE PLAN OF CARE LISTED BELOW. Current Visit: Yes (8) Ischemic cardiomyopathy Status: Chronic Assessment and plan: SEE PLAN OF CARE LISTED BELOW. Current Visit: Yes (9) Chronic obstructive pulmonary disease Status: Chronic Assessment and plan: SEE PLAN OF CARE LISTED BELOW. Current Visit: No (10) Hx of CABG Status: Chronic Assessment and plan: SEE PLAN OF CARE LISTED BELOW. Current Visit: Yes Cardiology - PN: Subj Interval history: SUMMARY: Ms. Sanchez, 81-year-old WF, PMHx hypertension, dyslipidemia, CAD, COPD. Patient is status post CABG 4 in September 1998 with ALEXNADER to LAD, SVG to OM4, SVG to PDA, and SVG to PLVB. Ischemic cardiomyopathy and acute on chronic systolic congestive heart failure due to decreased EF 35%. Last cardiac cath September 2007 with diffuse [place] vessel calcification, ALEXANDER graft patent, SVG to OM occluded , and vein graft to PDA and PLV branch were patent with moderate, diffuse disease. Patient currently admitted to telemetry unit on 11/13 for shortness of breath and chest pain. Since admission, diagnostic workup has revealed left lower lobe pneumonia and acute CHF (BNP 3067). EKG was also abnormal and troponin +3.31. Additional treatment has also been initiated for non-ST elevation [place]. Echo on 11/14 LVEF 35% with moderate global hypokinesis, moderate diastolic dysfunction, and pulmonary hypertension with PA pressure 50 mmHg. We are planning for left heart catheterization but she declined on Tuesday, wants to wait until "her lungs are better". 2016: Clinically she is improving. She is not nearly short of breath and when I am in the room her oxygen is off, she is lying comfortably recumbent. She does not know if she can lie flat. She is ambulating well per the family. She denies any chest pain. Her ins and outs do not demonstrate a diuresis, and her weight is increased 2 kg. The ins and outs may not be accurate because she does not have a Manuel catheter. November 21, 2016: Clinically she continues to feel well, with improved shortness of breath. She denies orthopnea. Her daughter is present during our interview. However her blood pressure has become low and her creatinine is increasing. ASSESSMENT/PLAN: 1. NSTEMI - Patient has now declined [facility] saying that she would feel more comfortable proceeding once pneumonia is completely resolved. No anginal complaint this morning. Continue current plan of care. Would readdress the possibility of cardiac catheterization next week. 2. LLL CAP - Continues to improve. 3. KNOWN CAD / HISTORY OF CABG - Continue aspirin, Plavix, beta-nini, ARB, and statin. 4. ISHEMIC CARDIOMYOPATHY - EF 35%. EF was 35% 2007. This is not a new diagnosis. Clinically she seems to be diuresing although the objective data would not support this. We will check a BNP in the morning. I am going to stop her diuretics that she appears to be prerenal. 5. ACUTE CHF - Secondary to systolic dysfunction (EF 35%), NYHA class III. Continue with afterload reduction, diuretics, daily weights and strict I&O, and BMP. See discussion above. I am going to stop her diuretics. 6. HYPERTENSION -she is now mildly hypotensive likely related to volume depletion. 7. DYSLIPIDEMIA - LDL 33. Continue atorvastatin 8. ADVANCED AGE - Continue current plan of care 9. ANEMIA - Stable on Plavix, ASA. Stool negative for occult blood. Continue to monitor closely. I will need to investigate why she is on once daily Ranexa instead of twice daily Exam (Progress Note) - Constitutional Vitals: Period Temp Pulse Resp BP Sys/Ch Pulse Ox Last 24 Hr 97.5 F-98.3 F 65-89 16-20 86-131/39-63 90-99 Result/EKG - Labs CBC & BMP: 11/21/16 04:08 11/21/16 04:08 Labs: Laboratory Results - last 24 hr 11/21/16 11/21/16 11/21/16 04:08 04:08 04:08 WBC 17.4 H D RBC 3.08 L Hgb 9.5 L Hct 27.9 L MCV 90.6 MCH 31 MCHC 34.1 RDW 14.8 Plt Count 293 MPV 11.0 Neut % (Auto) 78.3 H Lymph % (Auto) 8.7 L [place] % (Auto) 6.6 Eos % (Auto) 5.5 Baso % (Auto) 0.3 Neut # (Auto) 13.6 H Lymph # (Auto) 1.5 [place] # (Auto) 1.2 H Eos # (Auto) 1.0 H Baso # (Auto) 0.1 Total Counted 100 Immature Gran % 0.6 Nucleated RBC % 0.0 Immature Gran # 0.10 Segmented Neutrophils 78 Band Neutrophils 1 Lymphocytes 8 L Monocytes 8 Eosinophils 4 Basophils 1.0 H Nucleated RBCs # 0.00 Platelet Estimate Normal Immature Plt Fraction 0.0 Hypochromasia 2+ Sodium 137 Potassium 4.5 Chloride 98 Carbon Dioxide 31 Anion Gap 12.5 BUN 45 H D Creatinine 2.00 H GFR Calculation 17 BUN/Creatinine Ratio 22.00 H Glucose 94 Calculated Osmolality 284.8 Calcium 10.1 Magnesium 2.3 B-Natriuretic Peptide 436 H Specialty Discharge - Follow Up or Referrals
--- NOTE | 2016-11-21 21:06 | Internal Med Progress Note ---
Assessment and Plan (1) Low blood pressure Status: Chronic Current Visit: Yes Qualifiers: Hypotension type: hypotension due to drug Qualified Code(s): I95.2 - Hypotension due to drugs (2) Coronary artery disease Status: Chronic Current Visit: Yes Qualifiers: Coronary Disease-Associated Artery/Lesion type: [place] artery [place] vs. transplanted heart: [place] heart (3) NSTEMI (non-ST elevated myocardial infarction) Status: Acute Current Visit: Yes (4) Left lower lobe pneumonia Status: Acute Current Visit: Yes Internal Medicine - PN: Subj Interval history: This is an 81 year old female patient of Dr. Doug Avalos with history of CAD, Ischemic Cardiomyopathy, CABG, COPD, history of breast cancer, HTN well controlled on meds, anemia, hypothyroid, who had presented to ER with non-STEMI and LLL pneumonia. She was stable on rounds and reported feeling better. Apparently, she is opting for conservative management of significant CAD and has refused cardiac cath. Currently stable. Nov 21: She reports feeling better today than since she's been here. Have made no changes to meds, but blood pressure low normotensive. She is asymptomatic and stable. Exam (Progress Note) - Constitutional Vitals: Period Temp Pulse Resp BP Sys/Ch Pulse Ox Last 24 Hr 97.0 F-98.3 F 65-89 16-20 86-131/39-63 90-98 General appearance: no acute distress - Respiratory Respiratory exam: Present: clear to auscultation bilaterally - Cardiovascular Cardiovascular exam: Present: regular rate and rhythm - GI/Abdominal GI/Abdominal exam: Present: soft. Absent: tenderness - Extremities Exam Extremities exam: Absent: edema - Psychiatric Psychiatric exam: Present: normal mood - Skin Skin exam: Present: warm, dry Results - Labs CBC & BMP: 11/22/16 04:25 11/22/16 04:25 Specialty Discharge - Follow Up or Referrals
[2016-11-21] MEDS: ATORVASTATIN 20 MG TABLET PO SCH (21:23)
[2016-11-21] MEDS ORDERED: MORPHINE 2 MG/1 ML SYRINGE IV PRN (22:20)
[2016-11-21] MEDS: MORPHINE ER 15 MG TABLET PO SCH (22:44)
[2016-11-22] MEDS: CLINDAMYCIN INJ 300 MG in PREMIX 1 EACH IV SCH ×4 (00:29→23:59)
[2016-11-22] MEDS: VALSARTAN 80 MG TABLET PO SCH (00:32)
[2016-11-22 04:56] LABS: Basophils # 0.1 10*3/uL (0.0-0.2); Basophils % 0.3 % (0.0-0.8); Eosinophils # 0.6 10*3/uL (0.0-0.87); Hemoglobin 9.8 GM/DL (12.0-16.0); Immature Granulocytes % 0.7 %; Immature Granulocytes Absolute 0.12 #; Lymphocytes # 2.1 10*3/uL (1.4-4.0); Lymphocytes % 11.4 % (21.3-54.2); Mean Corpuscular HGB Conc 33.8 GM/DL (32-36); Mean Corpuscular Hemoglobin 30 PG (27-34); Mean Corpuscular Volume 90.1 FL (87-102); Mean Platelet Volume 11.1 FL (9.6-12.0); Monocytes % 5.5 % (1.7-12.7); Neutrophils # 14.4 10*3/uL (1.4-7.4); Neutrophils % 79.1 % (38.7-73.9); Platelet Count 340 T/CUMM (130-400); Red Blood Count 3.22 MC/CUMM (3.8-5.5); Red Cell Distribution Width 14.6 % (9.3-17.3); White Blood Count 18.2 T/CUMM (4-12)
[2016-11-22 05:20] LABS: Calcium 10.4 MG/DL (8.5-10.1); Magnesium 2.6 MG/DL (1.8-2.4); Osmolality,Calculated 280.1 MOS/KG (273-304); Potassium 5.3 MMOL/L (3.5-5.1)
[2016-11-22] MEDS: ALBUTEROL/IPRATROPIUM 3 ML NEB RESP TX SCH ×4 (07:18→19:14)
--- NOTE | 2016-11-22 07:48 | Family Practice Progress Note ---
Family Practice - PN: Subj Interval history: Patient states is feeling some better this morning and her chest pain and coughing have both improved a great deal. I have a repeat chest x-ray ordered for this morning. She has not had any further fever and she denies any chills or significant chest pain. Exam (Progress Note) - Constitutional Vitals: Period Temp Pulse Resp BP Sys/Ch Pulse Ox Last 24 Hr 96.8 F-97.7 F 16-86 16-18 86-99/35-50 94-98 Exam: Objective a well-developed white female no acute distress. She states she had a good night. She states her coughing has subsided. Cardiovascular: The heart rates regular without murmurs or gallops. Respiratory: Patient has improvement in her bibasilar rales. Abdomen: Abdomen soft and nontender to palpation. Results - Labs CBC & BMP: 11/22/16 04:25 11/22/16 04:25 Lab Results: I have reviewed the past 24 hour labs - Diagnostic Findings Procedure: Chest x-ray: report reviewed by me (Chest x-ray is pending.) Assessment and Plan (1) Left lower lobe pneumonia Status: Acute Assessment and plan: 11/16/2016: Patient states she certainly feeling much better. She states she is not having any fever or chills. She is having angina which is quite common for her. 11/17/2016: Patient's clinical course is 1 of improvement. 11/18/2016: Repeat chest x-ray is pending this morning. 11/19/2016: Chest x-ray just shows marked improvement in left basilar changes. 11/22/2016: Repeat chest x-ray has been ordered. Current Visit: Yes (2) NSTEMI (non-ST elevated myocardial infarction) Status: Acute Assessment and plan: 11/18/2016: Dr. Otoole plans on performing left heart catheterization on her in a day or so. Patient is certainly improved clinically from her pneumonia to proceed. 11/19/2016: Patient is having no further chest pain and she declines left heart catheterization. 11/22/2016: Patient states she is not having any further chest pain. Current Visit: Yes Specialty Discharge - Follow Up or Referrals
[2016-11-22] MEDS: CLOPIDOGREL 75 MG TABLET PO SCH (08:37)
[2016-11-22] MEDS: MEGESTROL 400 MG/10 ML UDCUP PO SCH (08:37)
[2016-11-22] MEDS: ISOSORBIDE MONONITRATE 60 MG TABLET PO SCH (08:37)
[2016-11-22] MEDS: RANOLAZINE 500 MG TABLET PO SCH (08:37)
[2016-11-22] MEDS: DOCUSATE SODIUM 100 MG CAPSULE PO SCH ×2 (08:38→21:20)
[2016-11-22] MEDS: LEVOTHYROXINE 100 MCG TABLET PO SCH (08:38)
[2016-11-22] MEDS: PANTOPRAZOLE 40 MG TABLET PO SCH (08:38)
[2016-11-22] MEDS: MORPHINE ER 30 MG TABLET PO SCH (08:38)
[2016-11-22] MEDS: ASPIRIN EC 81 MG TABLET PO SCH (08:38)
[2016-11-22] MEDS: NEBIVOLOL 5 MG TABLET PO SCH (08:38)
--- NOTE | 2016-11-22 09:36 | XRay Report ---
2 view chest 11/22/2016 7:45 AM Indication: Shortness of breath Comparison: November 18, 2016 at 900 hours Findings: Cardiomediastinal contours are stable with small hiatal hernia. Chronic interstitial coarsening with near complete resolution of the previously described superimposed airspace disease within the left upper and lower lobes. No acute osseous abnormalities. Osseous structures are markedly demineralized with exaggerated thoracic kyphosis. Visualized upper abdomen demonstrates no acute pathology. Impression: Near complete resolution of the left upper and lower lobe pneumonia superimposed on chronic interstitial changes PROCEDURE INTERPRETED AT [facility] DEPARTMENT OF RADIOLOGY Final Report Signed by: Darinel Alamo
[2016-11-22] MEDS ORDERED: VALSARTAN 80 MG TABLET PO SCH (10:30)
--- NOTE | 2016-11-22 10:34 | Cardiology Progress Note ---
Assessment and Plan (1) NSTEMI (non-ST elevated myocardial infarction) Status: Acute Assessment and plan: SEE PLAN OF CARE LISTED BELOW. Current Visit: Yes (2) Left lower lobe pneumonia Status: Acute Assessment and plan: SEE PLAN OF CARE LISTED BELOW. Current Visit: Yes (3) Anemia Status: Acute Assessment and plan: SEE PLAN OF CARE LISTED BELOW. Current Visit: Yes (4) Chronic obstructive pulmonary disease Status: Chronic Assessment and plan: SEE PLAN OF CARE LISTED BELOW. Current Visit: No (5) Dyslipidemia Status: Chronic Assessment and plan: SEE PLAN OF CARE LISTED BELOW. Current Visit: Yes (6) Hypertension Status: Chronic Assessment and plan: SEE PLAN OF CARE LISTED BELOW. 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 Current Visit: No (9) Coronary artery disease Status: Chronic Assessment and plan: SEE PLAN OF CARE LISTED BELOW. Current Visit: Yes Qualifiers: Coronary Disease-Associated Artery/Lesion type: [place] artery [place] vs. 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 Sanchez, 81-year-old [place], PMHx hypertension, dyslipidemia, CAD, COPD. Patient is status post CABG 4 in September 1998 with ALEXANDER to LAD, SVG to OM4, SVG to PDA, and SVG to PLVB. Ischemic cardiomyopathy and acute on chronic systolic congestive heart failure due to decreased EF 35%. Last cardiac cath September 2007 with diffuse [place] vessel calcification, ALEXANDER graft patent, SVG to OM occluded , and vein graft to PDA and PLV branch were patent with moderate, diffuse disease. Patient currently admitted to telemetry unit on 11/13 for shortness of breath and chest pain. Since admission, diagnostic workup has revealed left lower lobe pneumonia and acute CHF (BNP 3067). EKG was also abnormal and troponin +3.31. Additional treatment has also been initiated for non-ST elevation NE. Echo on 11/14 LVEF 35% with moderate global hypokinesis, moderate diastolic dysfunction, and pulmonary hypertension with PA pressure 50 mmHg. We are planning for left heart catheterization but she declined on Tuesday, wants to wait until "her lungs are better". 2016: Clinically she is improving. She is not nearly short of breath and when I am in the room her oxygen is off, she is lying comfortably recumbent. She does not know if she can lie flat. She is ambulating well per the family. She denies any chest pain. Her ins and outs do not demonstrate a diuresis, and her weight is increased 2 kg. The ins and outs may not be accurate because she does not have a Manuel catheter. 2016: Clinically she continues to feel well, with improved shortness of breath. She denies orthopnea. Her daughter is present during our interview. However her blood pressure has become low and her creatinine is increasing. 2016: Patient was seen and examined the telemetry unit. Clinically, she continues to improve. She reports that she continues to have productive cough. Denies orthopnea. Chest x-ray reviewed. Patient's CHF now appears to be compensated. Diuretics were discontinued over the weekend due to labs suggesting intravascular volume depletion. Patient continues to decline heart catheterization. She reports that she would rather have this done on an outpatient basis once her pneumonia has completely resolved. She does not feel that she is strong enough for this procedure. At this point, we will continue current plan of care. Can readdress the possibility of cardiac catheterization once her pneumonia completely resolves. I will further discuss with Dr. Gaines and await his additional recommendations. IMPRESSION AND PLAN: 1. NSTEMI - Patient has now declined C saying that she would feel more comfortable proceeding once pneumonia is completely resolved. She reports that she would rather have this done on an outpatient basis. Without anginal complaint. Continue current plan of care. Will readdress the possibility of cardiac catheterization once her pneumonia completely resolves. 2. LLL CAP - Improving clinically. Chest x-ray improving. Continue antibiotics. 3. KNOWN CAD / HISTORY OF CABG - Continue aspirin, Plavix, beta-nini, ARB, and statin. 4. ISHEMIC CARDIOMYOPATHY - EF 35%. EF was 35% 2007. This is not a new diagnosis. Continue beta-blockade and ARB. Diuretics discontinued as patient seem to be volume depleted over the weekend. Daily BMP. 5. ACUTE CHF - Now compensated. Secondary to systolic dysfunction (EF 35%), NYHA class III. Continue with afterload reduction, daily weights and strict I&O , and BMP. 6. HYPERTENSION - Diuretics discontinued over the weekend due to mildly hypo- tension likely related to volume depletion. I will decrease patient's ARB dose today. 7. DYSLIPIDEMIA - LDL 33. Continue atorvastatin 8. ADVANCED AGE - Continue current plan of care 9. ANEMIA - Stable on Plavix, ASA. Stool negative for occult blood. Continue to monitor closely. Exam (Progress Note) - Constitutional Vitals: Period Temp Pulse Resp BP Sys/Ch Pulse Ox Last 24 Hr 96.8 F-97.9 F 16-86 16-18 86-104/35-59 94-98 Exam: General: [Thin, small framed white female. In no apparent distress. Pleasant and cooperative. ] HEENT: [PERRL, normocephalic, atraumatic. Mucous membranes moist. No jaundice noted. Conjunctiva moist and clear, sclerae anicteric] Neck: No obvious JVD/HJR, no thyromegaly or lymphadenopathy noted. No carotid bruit appreciated Cardiac: [Regular rate and rhythm.] [No obvious murmur, rub or gallop.] Lungs: Clear to auscultation. Oxygen in use via nasal cannula Abdomen: Soft, bowel sounds normoactive. Nontender and nondistended. No abdominal bruit or thrill noted. No masses noted. Musculoskeletal: No fluid collection. Decreased range of motion is noted. Extremities: No clubbing, cyanosis noted. [ No edema noted.] Upper extremity pulses 2+. Lower extremity pulses 2+. Capillary refill less than 3 seconds. Skin: No unusual lesions or rashes. No skin breakdown appreciated. Neuro: Awake, alert and oriented 3. Moves all extremities well without hemiparesis or paralysis. No essential tremor is appreciated. Result/EKG - Labs CBC & BMP: 11/22/16 04:25 11/22/16 04:25 Lab Results: I have reviewed the past 24 hour labs Labs: Laboratory Results - last 24 hr 11/22/16 11/22/16 04:25 04:25 WBC 18.2 H RBC 3.22 L Hgb 9.8 L Hct 29.0 L MCV 90.1 MCH 30 MCHC 33.8 RDW 14.6 Plt Count 340 MPV 11.1 Neut % (Auto) 79.1 H Lymph % (Auto) 11.4 L [place] % (Auto) 5.5 Eos % (Auto) 3.0 Baso % (Auto) 0.3 Neut # (Auto) 14.4 H Lymph # (Auto) 2.1 [place] # (Auto) 1.0 H Eos # (Auto) 0.6 Baso # (Auto) 0.1 Immature Gran % 0.7 Nucleated RBC % 0.0 Immature Gran # 0.12 Nucleated RBCs # 0.00 Immature Plt Fraction 0.0 Sodium 135 L Potassium 5.3 H Chloride 100 Carbon Dioxide 29 Anion Gap 11.3 BUN 42 H Creatinine 1.70 H GFR Calculation 21 BUN/Creatinine Ratio 24.00 H Glucose 101 Calculated Osmolality 280.1 Calcium 10.4 H Magnesium 2.6 H Specialty Discharge - Follow Up or Referrals Follow up with: Bob Jacobson MD [Physician] - 2 Weeks (EKG, BMP )
[2016-11-22] MEDS: ENOXAPARIN 30 MG/0.3 ML SYRINGE SUBCUT SCH (14:12)
[2016-11-22] MEDS: AZITHROMYCIN INJ 500 MG in SODIUM CHLORIDE 0.9% 250 ML IV SCH (16:04)
[2016-11-22] MEDS: ATORVASTATIN 20 MG TABLET PO SCH (21:19)
[2016-11-23] MEDS: MORPHINE ER 15 MG TABLET PO SCH
[2016-11-23 04:43] LABS: Basophils # 0.1 10*3/uL (0.0-0.2); Basophils % 0.3 % (0.0-0.8); Eosinophils # 0.2 10*3/uL (0.0-0.87); Eosinophils % 1.3 % (0.00-10.9); Hematocrit 27.7 VOL% (35.7-47.0); Hemoglobin 9.3 GM/DL (12.0-16.0); Immature Granulocytes % 0.7 %; Immature Granulocytes Absolute 0.12 #; Lymphocytes # 1.2 10*3/uL (1.4-4.0); Lymphocytes % 7.5 % (21.3-54.2); Mean Corpuscular HGB Conc 33.6 GM/DL (32-36); Mean Corpuscular Hemoglobin 31 PG (27-34); Mean Corpuscular Volume 90.8 FL (87-102); Monocytes % 6.3 % (1.7-12.7); Neutrophils # 13.7 10*3/uL (1.4-7.4); Neutrophils % 83.9 % (38.7-73.9); Platelet Count 328 T/CUMM (130-400); Red Blood Count 3.05 MC/CUMM (3.8-5.5); Red Cell Distribution Width 14.9 % (9.3-17.3); White Blood Count 16.4 T/CUMM (4-12)
[2016-11-23 05:07] LABS: Calcium 10.2 MG/DL (8.5-10.1); Magnesium 2.3 MG/DL (1.8-2.4); Osmolality,Calculated 276.1 MOS/KG (273-304); Potassium 4.9 MMOL/L (3.5-5.1)
[2016-11-23 05:15] LABS: Eosinophils 1 % (0-10); Giant Platelets Few; Hypochromasia 1+; Lymphocytes 10 % (20-55); Ovalocytes Slight; Platelet Estimate Adequate; Segmented Neutrophils 86 % (50-85); Total Cells Counted 100
[2016-11-23 05:16] LABS: Microcytosis Slight
[2016-11-23] MEDS: ALBUTEROL/IPRATROPIUM 3 ML NEB RESP TX SCH ×2 (07:42→10:40)
[2016-11-23 07:58] VITALS: BP 130/68
--- NOTE | 2016-11-23 08:08 | Discharge Summary ---
Hospital Course - Hospital Course Hospital Course: Patient is a 81 white female admitted through the emergency room with chest pain and shortness of breath. She has a long history of severe coronary artery disease and is not a candidate for bypass or intervention in the past. Patient was found to have left-sided pneumonia and was also found to have a non-STEMI with elevated troponin but no diagnostic EKG changes. Patient was admitted to my services. Cultures were obtained which revealed her to have positive blood culture for Streptococcus anginosis. Patient was treated with appropriate antibiotic therapy and her chest x-ray findings resolved. Patient was seen in consultation by cardiology who recommended a left heart catheterization but she declined this at this time. Patient be discharged home today we will continue IV antibiotic therapy and I will see her back in the office in 2 weeks time and repeat her x-ray at that time. Diagnosis - Discharge Diagnosis (1) Left lower lobe pneumonia Status: Acute (2) NSTEMI (non-ST elevated myocardial infarction) Status: Acute Specialty Discharge - Follow Up or Referrals Follow up with: Bob Sifuentes MD [Physician] - 2 Weeks (EKG, BMP ) Discharge Plan - Discharge Data Disposition: Disch To Home/Self Care Condition at Discharge: Stable Discharge Diet: advance to your usual diet Activity: resume usual activities as tolerated Hygiene: no restrictions Weight Bearing at Discharge: full weight bearing Contact your physician if you experience:: fever over 101 - Discharge Medications New Megestrol Liquid [Megace Liquid] 10 mls PO DAILY #300 mls Continue Atorvastatin [Lipitor] 20 mg PO BEDTIME Aspirin [Ecotrin] 81 mg PO DAILY Amlodipine Besylate 2.5 mg PO BEDTIME Clopidogrel Bisulfate [Clopidogrel] 75 mg PO QPM Levothyroxine Sodium [Synthroid] 100 mcg PO QAM Lansoprazole 30 mg PO QPM Furosemide [Lasix] 20 mg PO BID Isosorbide Mononitrate [Isosorbide Mononitrate ER] 60 mg PO QAM Valsartan [Diovan] 40 mg PO BEDTIME Morphine Sulfate [Morphine Sulfate ER] 15 mg PO BEDTIME Nitroglycerin Sl Tab [Nitrostat] 0.4 mg SL Q5M Morphine Sulfate [Morphine Sulfate ER] 30 mg PO QAM Ranolazine [Ranexa] 500 mg PO QAM Nebivolol [Bystolic] 5 mg PO QAM Albuterol/Ipratropium Neb [Duoneb] 3 ml RESP TX QID #120 No Action Albuterol Sulfate [Proair HFA] 90 mcg INH Q4H PRN PRN Reason: Wheezing - Follow Up or Referral Follow Up: Bob Sifuentes MD [Physician] - 2 Weeks (EKG, BMP ) Doug Avalos MD [Physician] - 2 Weeks (Chest x-ray on return to clinic ) - Forms/Instructions Instructions: Hypertrophic Cardiomyopathy (GEN), Low Sodium Diet (GEN) Exam - Constitutional Vitals: Period Temp Pulse Resp BP Sys/Ch Pulse Ox Last 24 Hr 97.1 F-98.7 F 62-90 14-20 86-130/45-68 90-100 Exam: Objective a well-developed white female no acute distress. She states she had a good night. She states her coughing has subsided. She is a little confused this morning did not remember me talking to her yesterday. Cardiovascular: The heart rates regular without murmurs or gallops. Respiratory: Patient has improvement in her bibasilar rales. Abdomen: Abdomen soft and nontender to palpation. Discharge Results Procedures and tests throughout hospitalization: Pending Orders 11/13/16 14:19 Blood Culture Stat 11/16/16 10:38 Occult Blood, Stool Routine Labs on day of discharge: Labs from last 24 hours 11/23/16 11/23/16 03:53 03:53 WBC 16.4 H RBC 3.05 L Hgb 9.3 L Hct 27.7 L MCV 90.8 MCH 31 MCHC 33.6 RDW 14.9 Plt Count 328 MPV 11.0 Neut % (Auto) 83.9 H Lymph % (Auto) 7.5 L [place] % (Auto) 6.3 Eos % (Auto) 1.3 Baso % (Auto) 0.3 Neut # (Auto) 13.7 H Lymph # (Auto) 1.2 L [place] # (Auto) 1.0 H Eos # (Auto) 0.2 Baso # (Auto) 0.1 Total Counted 100 Immature Gran % 0.7 Nucleated RBC % 0.0 Immature Gran # 0.12 Segmented Neutrophils 86 H Lymphocytes 10 L Monocytes 3 Eosinophils 1 Nucleated RBCs # 0.00 Platelet Estimate Adequate Giant Platelets Few Immature Plt Fraction 0.0 Hypochromasia 1+ Microcytosis Slight Ovalocytes Slight Sodium 135 L Potassium 4.9 Chloride 101 Carbon Dioxide 29 Anion Gap 9.9 BUN 36 H Creatinine 1.20 H GFR Calculation 32 BUN/Creatinine Ratio 30.00 H Glucose 83 Calculated Osmolality 276.1 Calcium 10.2 H Magnesium 2.3 Preliminary micro results at discharge 11/13/16 14:19 Blood Culture - Preliminary Blood Gram positive rods Hemoglobin of 9.3 and white count slightly elevated at 16,400. - Imaging and Cardiology Procedure: Chest x-ray: report reviewed by me (Chest x-ray yesterday revealed resolution of her infiltrates.) DS: Provider Date of admission: 11/13/16 14:53 Primary care physician: . No PCP Attending physician on admission: Doug Avalos MD Consults: 11/13/16 14:54 Consult to Physician [CONS] Routine Comment: Consulting Provider: Dale Galdamez Person Notified: Dr Weller Date Notified: 11/13/16 Consult Notification Comment: Saw in ER 11/13/16 15:34 Consult to Dietitian [CONS] Routine Reason for Dietitian: Other 11/13/16 18:53 Consult to Case Mgmt/Social Srvs [CONS] Routine Reason for Case Mgmt/Social Srvs: Discharge Planning 11/16/16 06:57 Consult to Cardiac Rehabilitation [CONS] Routine Reason for Cardiac Rehabilitation: Other Discharging clinician: Doug Avalos MD Expected date of discharge: 11/23/16
[2016-11-23] MEDS: ASPIRIN EC 81 MG TABLET PO SCH (09:22)
[2016-11-23] MEDS: ISOSORBIDE MONONITRATE 60 MG TABLET PO SCH (09:22)
[2016-11-23] MEDS: RANOLAZINE 500 MG TABLET PO SCH (09:23)
[2016-11-23] MEDS: CLINDAMYCIN INJ 300 MG in PREMIX 1 EACH IV SCH (09:23)
[2016-11-23] MEDS: CLOPIDOGREL 75 MG TABLET PO SCH (09:23)
[2016-11-23] MEDS: LEVOTHYROXINE 100 MCG TABLET PO SCH (09:23)
[2016-11-23] MEDS: NEBIVOLOL 5 MG TABLET PO SCH (09:23)
[2016-11-23] MEDS: MEGESTROL 400 MG/10 ML UDCUP PO SCH (09:23)
[2016-11-23] MEDS: PANTOPRAZOLE 40 MG TABLET PO SCH (09:23)
[2016-11-23] MEDS: DOCUSATE SODIUM 100 MG CAPSULE PO SCH (09:23)
[2016-11-23] MEDS: MORPHINE ER 30 MG TABLET PO SCH (09:23)
== END 2016-11-23 11:30 | disposition home or self-care (01) | DRG 280 ==
LOC: EDBD → EDUNIT# → N.ED 11:03 → N.EDINP 11:03 → OBSVTOIN 14:24 → SUATTDRO 14:53 → N.TELES 15:12 → N.EDINP 15:12 → N.TELES 15:25
PROVIDERS: ADMIT Family Medicine; ATTEND Family Medicine

== ENCOUNTER 2017-08-24 10:27 | Inpatient (IN) ==
[2017-08-24] MEDS ORDERED: NITROGLYCERIN SL 0.4 MG TABLET SL PRN (10:58)
[2017-08-24] MEDS ORDERED: AZITHROMYCIN INJ 500 MG in SODIUM CHLORIDE 0.9% 250 ML IV STA (10:58)
[2017-08-24] MEDS ORDERED: KETOROLAC 30 MG/1 ML VIAL IV STA (10:58)
[2017-08-24] MEDS ORDERED: ASPIRIN 325 MG TABLET PO STA (10:58)
[2017-08-24] MEDS ORDERED: ORPHENADRINE 60 MG/2 ML VIAL IV STA (10:58)
[2017-08-24] MEDS ORDERED: ALBUTEROL/IPRATROPIUM 3 ML NEB RESP TX STA (10:58)
[2017-08-24] MEDS ORDERED: SODIUM CHLORIDE 0.9% 250 ML IV ONE (11:10)
[2017-08-24 11:29] LABS: Basophils # 0.1 10*3/uL (0.0-0.2); Basophils % 0.6 % (0.0-0.8); Eosinophils # 0.2 10*3/uL (0.0-0.87); Eosinophils % 1.4 % (0.00-10.9); Hematocrit 33.9 VOL% (35.7-47.0); Hemoglobin 11.3 GM/DL (12.0-16.0); Immature Granulocytes % 0.4 %; Immature Granulocytes Absolute 0.06 #; Lymphocytes # 0.8 10*3/uL (1.4-4.0); Lymphocytes % 5.1 % (21.3-54.2); Mean Corpuscular HGB Conc 33.3 GM/DL (32-36); Mean Corpuscular Hemoglobin 31 PG (27-34); Mean Corpuscular Volume 92.1 FL (87-102); Mean Platelet Volume 10.7 FL (9.6-12.0); Monocytes # 1.5 10*3/uL (0.11-0.8); Monocytes % 9.9 % (1.7-12.7); Neutrophils # 12.7 10*3/uL (1.4-7.4); Neutrophils % 82.6 % (38.7-73.9); Platelet Count 246 T/CUMM (130-400); Red Blood Count 3.68 MC/CUMM (3.8-5.5); Red Cell Distribution Width 15.2 % (9.3-17.3); White Blood Count 15.4 T/CUMM (4-12)
[2017-08-24 11:38] LABS: PT Patient Result 10.5 SECS
[2017-08-24 11:57] LABS: Albumin 3.4 G/DL (3.4-5.0); Bilirubin,Total 0.5 MG/DL (0.2-1.0); Calcium 9.9 MG/DL (8.5-10.1); Osmolality,Calculated 284.1 MOS/KG (273-304); Potassium 4.2 MMOL/L (3.5-5.1); Total Protein 6.5 G/DL (6.4-8.3)
[2017-08-24] MEDS ORDERED: FUROSEMIDE 40 MG/4 ML VIAL IV STA (12:04)
[2017-08-24 14:33] LABS: Apearance,Urine CLEAR (Clear); Bilirubin,Urine Negative (Negative); Blood, Urine Small mg/dL (Negative); Glucose,Urine (UA) Negative (Negative); Ketones,Urine Negative (Negative); Nitrite,Urine Negative (Negative); Protein,Urine Negative; RBC,Urine 6 /HPF (0-4); Squamous Epithelial Cell,Urine Occasional /HPF (0-10); Urine Color Yellow (Yellow); Urine Specific Gravity 1.013 (1.001-1.035); Urine Urobilinogen < 2.0 EU/DL (0.2-1.0); WBC,Urine 1 /HPF (0-6)
[2017-08-24] MEDS ORDERED: ALBUTEROL 2.5 MG/3 ML NEB RESP TX SCH (15:00)
[2017-08-24] MEDS: MEROPENEM 500 MG in SYRINGE 1 EACH IV SCH (16:33)
[2017-08-24] MEDS ORDERED: NITROGLYCERIN SL 0.4 MG TABLET SL SCH (17:21)
[2017-08-24] MEDS: FUROSEMIDE 40 MG/4 ML VIAL IV SCH (17:25)
[2017-08-24] MEDS: PANTOPRAZOLE 40 MG TABLET PO SCH (17:55)
[2017-08-24] MEDS: METOCLOPRAMIDE 5 MG TABLET PO SCH ×2 (17:55→21:55)
[2017-08-24] MEDS: MORPHINE ER 15 MG TABLET PO SCH (18:30)
[2017-08-24] MEDS: ALBUTEROL/IPRATROPIUM 3 ML NEB RESP TX SCH (20:08)
[2017-08-24] MEDS: ATORVASTATIN 20 MG TABLET PO SCH (21:57)
[2017-08-24] MEDS: amLODIPine 2.5 MG TABLET PO SCH (21:57)
[2017-08-25] MEDS: MEROPENEM 500 MG in SYRINGE 1 EACH IV SCH ×2 (04:52→18:20)
[2017-08-25 06:59] LABS: Basophils # 0.1 10*3/uL (0.0-0.2); Basophils % 0.6 % (0.0-0.8); Eosinophils # 0.4 10*3/uL (0.0-0.87); Eosinophils % 2.4 % (0.00-10.9); Hematocrit 35.8 VOL% (35.7-47.0); Hemoglobin 11.9 GM/DL (12.0-16.0); Immature Granulocytes % 0.4 %; Immature Granulocytes Absolute 0.07 #; Lymphocytes # 1.3 10*3/uL (1.4-4.0); Lymphocytes % 7.9 % (21.3-54.2); Mean Corpuscular HGB Conc 33.2 GM/DL (32-36); Mean Corpuscular Hemoglobin 30 PG (27-34); Mean Corpuscular Volume 91.3 FL (87-102); Mean Platelet Volume 11.2 FL (9.6-12.0); Monocytes # 1.4 10*3/uL (0.11-0.8); Neutrophils # 12.6 10*3/uL (1.4-7.4); Neutrophils % 79.7 % (38.7-73.9); Platelet Count 249 T/CUMM (130-400); Red Blood Count 3.92 MC/CUMM (3.8-5.5); Red Cell Distribution Width 15.6 % (9.3-17.3); White Blood Count 15.9 T/CUMM (4-12)
[2017-08-25 07:26] LABS: Blood Urea Nitrogen 19 MG/DL (7-18); Calcium 10.5 MG/DL (8.5-10.1); Glucose 114 MG/DL (74-106); Osmolality,Calculated 285.1 MOS/KG (273-304); Potassium 4.1 MMOL/L (3.5-5.1); Sodium 142 MMOL/L (136-145)
[2017-08-25] MEDS: ALBUTEROL/IPRATROPIUM 3 ML NEB RESP TX SCH ×4 (07:59→20:17)
[2017-08-25] MEDS ORDERED: PANTOPRAZOLE 40 MG TABLET PO SCH (09:00)
[2017-08-25] MEDS ORDERED: RANOLAZINE 500 MG TABLET PO SCH (09:00)
[2017-08-25] MEDS ORDERED: ASPIRIN 325 MG TABLET PO SCH (09:00)
[2017-08-25] MEDS: NEBIVOLOL 5 MG TABLET PO SCH (09:38)
[2017-08-25] MEDS: LEVOTHYROXINE 100 MCG TABLET PO SCH (09:38)
[2017-08-25] MEDS: METOCLOPRAMIDE 5 MG TABLET PO SCH ×4 (09:38→20:30)
[2017-08-25] MEDS: ASPIRIN EC 81 MG TABLET PO SCH (09:38)
[2017-08-25] MEDS: CLOPIDOGREL 75 MG TABLET PO SCH (09:38)
[2017-08-25] MEDS: ISOSORBIDE MONONITRATE 60 MG TABLET PO SCH (09:39)
[2017-08-25] MEDS: MORPHINE ER 30 MG TABLET PO SCH (09:43)
[2017-08-25] MEDS: FUROSEMIDE 40 MG/4 ML VIAL IV SCH ×2 (09:44→18:20)
[2017-08-25] MEDS: AZITHROMYCIN INJ 500 MG in SODIUM CHLORIDE 0.9% 250 ML IV SCH (09:46)
[2017-08-25] MEDS: PANTOPRAZOLE 40 MG TABLET PO SCH (16:05)
[2017-08-25] MEDS: MORPHINE ER 15 MG TABLET PO SCH (16:05)
[2017-08-25] MEDS: ATORVASTATIN 20 MG TABLET PO SCH (20:30)
[2017-08-25] MEDS: amLODIPine 2.5 MG TABLET PO SCH (20:30)
[2017-08-25] MEDS: traMADol 50 MG TABLET PO PRN (20:30)
[2017-08-26] MEDS: MEROPENEM 500 MG in SYRINGE 1 EACH IV SCH ×2 (02:12→14:39)
[2017-08-26] MEDS: LEVOTHYROXINE 100 MCG TABLET PO SCH (06:26)
[2017-08-26 06:48] LABS: Osmolality,Calculated 284.3 MOS/KG (273-304)
[2017-08-26 06:51] LABS: Basophils # 0.1 10*3/uL (0.0-0.2); Basophils % 0.7 % (0.0-0.8); Eosinophils # 0.7 10*3/uL (0.0-0.87); Eosinophils % 5.3 % (0.00-10.9); Immature Granulocytes % 0.4 %; Immature Granulocytes Absolute 0.05 #; Lymphocytes % 16.3 % (21.3-54.2); Mean Corpuscular HGB Conc 32.3 GM/DL (32-36); Mean Corpuscular Hemoglobin 30 PG (27-34); Mean Corpuscular Volume 93.1 FL (87-102); Mean Platelet Volume 11.4 FL (9.6-12.0); Monocytes # 1.3 10*3/uL (0.11-0.8); Monocytes % 10.8 % (1.7-12.7); Neutrophils # 8.2 10*3/uL (1.4-7.4); Neutrophils % 66.5 % (38.7-73.9); Platelet Count 215 T/CUMM (130-400); Red Blood Count 3.33 MC/CUMM (3.8-5.5); Red Cell Distribution Width 15.6 % (9.3-17.3); White Blood Count 12.3 T/CUMM (4-12)
[2017-08-26] MEDS ORDERED: LEVOTHYROXINE 100 MCG TABLET PO SCH (07:00)
[2017-08-26 07:06] LABS: Free T4 (Free Thyroxine) 1.19 NG/DL (0.76-1.46); Thyroid Stimulating Hormone 0.811 uIU/ml (0.358-3.74)
[2017-08-26] MEDS: ALBUTEROL/IPRATROPIUM 3 ML NEB RESP TX SCH ×4 (07:16→19:33)
[2017-08-26] MEDS: ASPIRIN EC 81 MG TABLET PO SCH (09:52)
[2017-08-26] MEDS: METOCLOPRAMIDE 5 MG TABLET PO SCH ×4 (09:52→21:20)
[2017-08-26] MEDS: ISOSORBIDE MONONITRATE 60 MG TABLET PO SCH (09:52)
[2017-08-26] MEDS: CLOPIDOGREL 75 MG TABLET PO SCH (09:52)
[2017-08-26] MEDS: NEBIVOLOL 5 MG TABLET PO SCH (09:52)
[2017-08-26] MEDS: RANOLAZINE 500 MG TABLET PO SCH ×2 (09:53→21:20)
[2017-08-26] MEDS: MORPHINE ER 30 MG TABLET PO SCH (10:05)
[2017-08-26] MEDS: FUROSEMIDE 40 MG/4 ML VIAL IV SCH ×2 (10:07→17:12)
[2017-08-26] MEDS: AZITHROMYCIN INJ 500 MG in SODIUM CHLORIDE 0.9% 250 ML IV SCH (10:51)
[2017-08-26] MEDS: PANTOPRAZOLE 40 MG TABLET PO SCH (17:10)
[2017-08-26] MEDS: MORPHINE ER 15 MG TABLET PO SCH (17:10)
[2017-08-26] MEDS: ATORVASTATIN 20 MG TABLET PO SCH (21:20)
[2017-08-26] MEDS: amLODIPine 2.5 MG TABLET PO SCH (21:20)
[2017-08-26] MEDS: traMADol 50 MG TABLET PO PRN (22:25)
[2017-08-27] MEDS: MEROPENEM 500 MG in SYRINGE 1 EACH IV SCH ×2 (03:35→15:00)
[2017-08-27 05:18] LABS: Basophils # 0.1 10*3/uL (0.0-0.2); Basophils % 0.4 % (0.0-0.8); Eosinophils # 0.4 10*3/uL (0.0-0.87); Eosinophils % 2.6 % (0.00-10.9); Hematocrit 28.9 VOL% (35.7-47.0); Hemoglobin 9.8 GM/DL (12.0-16.0); Immature Granulocytes % 0.4 %; Immature Granulocytes Absolute 0.06 #; Lymphocytes # 1.3 10*3/uL (1.4-4.0); Lymphocytes % 8.2 % (21.3-54.2); Mean Corpuscular HGB Conc 33.9 GM/DL (32-36); Mean Corpuscular Hemoglobin 31 PG (27-34); Mean Platelet Volume 11.4 FL (9.6-12.0); Monocytes # 1.3 10*3/uL (0.11-0.8); Monocytes % 8.2 % (1.7-12.7); Neutrophils # 12.7 10*3/uL (1.4-7.4); Neutrophils % 80.2 % (38.7-73.9); Platelet Count 224 T/CUMM (130-400); Red Blood Count 3.21 MC/CUMM (3.8-5.5); Red Cell Distribution Width 14.9 % (9.3-17.3); White Blood Count 15.8 T/CUMM (4-12)
[2017-08-27 05:44] LABS: Osmolality,Calculated 282.7 MOS/KG (273-304)
[2017-08-27] MEDS: LEVOTHYROXINE 100 MCG TABLET PO SCH (06:45)
[2017-08-27] MEDS: ALBUTEROL/IPRATROPIUM 3 ML NEB RESP TX SCH ×4 (06:52→21:57)
[2017-08-27] MEDS: NEBIVOLOL 5 MG TABLET PO SCH (09:49)
[2017-08-27] MEDS: METOCLOPRAMIDE 5 MG TABLET PO SCH ×4 (09:49→20:43)
[2017-08-27] MEDS: CLOPIDOGREL 75 MG TABLET PO SCH (09:49)
[2017-08-27] MEDS: MORPHINE ER 30 MG TABLET PO SCH (09:49)
[2017-08-27] MEDS: RANOLAZINE 500 MG TABLET PO SCH ×2 (09:49→20:43)
[2017-08-27] MEDS: ISOSORBIDE MONONITRATE 60 MG TABLET PO SCH (09:49)
[2017-08-27] MEDS: AZITHROMYCIN INJ 500 MG in SODIUM CHLORIDE 0.9% 250 ML IV SCH (09:50)
[2017-08-27] MEDS: ASPIRIN EC 81 MG TABLET PO SCH (09:50)
[2017-08-27] MEDS: FUROSEMIDE 40 MG/4 ML VIAL IV SCH ×2 (09:50→17:23)
[2017-08-27] MEDS ORDERED: ACETAMINOPHEN 325 MG TABLET PO PRN (11:52)
[2017-08-27] MEDS: MORPHINE ER 15 MG TABLET PO SCH (17:23)
[2017-08-27] MEDS: PANTOPRAZOLE 40 MG TABLET PO SCH (17:23)
[2017-08-27] MEDS: ATORVASTATIN 20 MG TABLET PO SCH (20:43)
[2017-08-27] MEDS: amLODIPine 2.5 MG TABLET PO SCH (20:43)
[2017-08-27] MEDS: traMADol 50 MG TABLET PO PRN (20:44)
[2017-08-28] MEDS: MEROPENEM 500 MG in SYRINGE 1 EACH IV SCH ×2 (04:15→14:45)
[2017-08-28 05:34] LABS: Basophils % 0.3 % (0.0-0.8); Eosinophils # 0.5 10*3/uL (0.0-0.87); Eosinophils % 4.2 % (0.00-10.9); Hematocrit 29.3 VOL% (35.7-47.0); Hemoglobin 9.6 GM/DL (12.0-16.0); Immature Granulocytes % 0.6 %; Immature Granulocytes Absolute 0.07 #; Lymphocytes # 1.3 10*3/uL (1.4-4.0); Lymphocytes % 10.5 % (21.3-54.2); Mean Corpuscular HGB Conc 32.8 GM/DL (32-36); Mean Corpuscular Hemoglobin 30 PG (27-34); Mean Corpuscular Volume 90.2 FL (87-102); Mean Platelet Volume 11.8 FL (9.6-12.0); Monocytes # 1.3 10*3/uL (0.11-0.8); Monocytes % 10.5 % (1.7-12.7); Neutrophils # 8.9 10*3/uL (1.4-7.4); Neutrophils % 73.9 % (38.7-73.9); Platelet Count 235 T/CUMM (130-400); Red Blood Count 3.25 MC/CUMM (3.8-5.5)
[2017-08-28 06:05] LABS: Calcium 10.3 MG/DL (8.5-10.1); Osmolality,Calculated 283.5 MOS/KG (273-304); Potassium 3.9 MMOL/L (3.5-5.1)
[2017-08-28] MEDS: NEBIVOLOL 5 MG TABLET PO SCH (08:34)
[2017-08-28] MEDS: METOCLOPRAMIDE 5 MG TABLET PO SCH ×4 (08:34→21:42)
[2017-08-28] MEDS: RANOLAZINE 500 MG TABLET PO SCH ×2 (08:34→21:41)
[2017-08-28] MEDS: MORPHINE ER 30 MG TABLET PO SCH (08:34)
[2017-08-28] MEDS: CLOPIDOGREL 75 MG TABLET PO SCH (08:34)
[2017-08-28] MEDS: ISOSORBIDE MONONITRATE 60 MG TABLET PO SCH (08:34)
[2017-08-28] MEDS: ASPIRIN EC 81 MG TABLET PO SCH (08:34)
[2017-08-28] MEDS: FUROSEMIDE 40 MG/4 ML VIAL IV SCH ×3 (08:35→21:42)
[2017-08-28] MEDS: AZITHROMYCIN INJ 500 MG in SODIUM CHLORIDE 0.9% 250 ML IV SCH (08:35)
[2017-08-28] MEDS: LEVOTHYROXINE 100 MCG TABLET PO SCH (08:38)
[2017-08-28] MEDS: ALBUTEROL/IPRATROPIUM 3 ML NEB RESP TX SCH ×4 (09:43→20:22)
[2017-08-28] MEDS: PANTOPRAZOLE 40 MG TABLET PO SCH (17:11)
[2017-08-28] MEDS: MORPHINE ER 15 MG TABLET PO SCH (17:11)
[2017-08-28] MEDS: traMADol 50 MG TABLET PO PRN (21:41)
[2017-08-28] MEDS: amLODIPine 2.5 MG TABLET PO SCH (21:42)
[2017-08-28] MEDS: ATORVASTATIN 20 MG TABLET PO SCH (21:42)
[2017-08-29] MEDS: MEROPENEM 500 MG in SYRINGE 1 EACH IV SCH ×2 (03:50→16:23)
[2017-08-29 04:59] LABS: Osmolality,Calculated 276.1 MOS/KG (273-304); Potassium 3.8 MMOL/L (3.5-5.1)
[2017-08-29 05:02] LABS: Basophils # 0.1 10*3/uL (0.0-0.2); Basophils % 0.5 % (0.0-0.8); Eosinophils # 0.5 10*3/uL (0.0-0.87); Hematocrit 29.4 VOL% (35.7-47.0); Hemoglobin 9.4 GM/DL (12.0-16.0); Immature Granulocytes % 0.5 %; Immature Granulocytes Absolute 0.06 #; Lymphocytes # 1.2 10*3/uL (1.4-4.0); Lymphocytes % 9.2 % (21.3-54.2); Mean Corpuscular Hemoglobin 30 PG (27-34); Mean Platelet Volume 11.9 FL (9.6-12.0); Monocytes # 1.5 10*3/uL (0.11-0.8); Neutrophils # 9.5 10*3/uL (1.4-7.4); Neutrophils % 73.8 % (38.7-73.9); Platelet Count 206 T/CUMM (130-400); Red Blood Count 3.16 MC/CUMM (3.8-5.5); Red Cell Distribution Width 14.8 % (9.3-17.3); White Blood Count 12.8 T/CUMM (4-12)
[2017-08-29] MEDS: LEVOTHYROXINE 100 MCG TABLET PO SCH (05:50)
[2017-08-29] MEDS: ALBUTEROL/IPRATROPIUM 3 ML NEB RESP TX SCH ×4 (07:20→19:05)
[2017-08-29] MEDS: METOCLOPRAMIDE 5 MG TABLET PO SCH ×4 (09:26→22:15)
[2017-08-29] MEDS: RANOLAZINE 500 MG TABLET PO SCH ×2 (09:26→22:15)
[2017-08-29] MEDS: ASPIRIN EC 81 MG TABLET PO SCH (09:27)
[2017-08-29] MEDS: CLOPIDOGREL 75 MG TABLET PO SCH (09:27)
[2017-08-29] MEDS: MORPHINE ER 30 MG TABLET PO SCH (09:27)
[2017-08-29] MEDS: ISOSORBIDE MONONITRATE 60 MG TABLET PO SCH (09:27)
[2017-08-29] MEDS: FUROSEMIDE 40 MG/4 ML VIAL IV SCH ×3 (09:28→22:15)
[2017-08-29] MEDS: NEBIVOLOL 5 MG TABLET PO SCH (09:28)
[2017-08-29] MEDS: AZITHROMYCIN INJ 500 MG in SODIUM CHLORIDE 0.9% 250 ML IV SCH (09:35)
[2017-08-29] MEDS: MORPHINE ER 15 MG TABLET PO SCH (16:15)
[2017-08-29] MEDS: PANTOPRAZOLE 40 MG TABLET PO SCH (16:15)
[2017-08-29] MEDS: amLODIPine 2.5 MG TABLET PO SCH (22:15)
[2017-08-29] MEDS: ATORVASTATIN 20 MG TABLET PO SCH (22:15)
[2017-08-30] MEDS: MEROPENEM 500 MG in SYRINGE 1 EACH IV SCH ×2 (04:41→14:48)
[2017-08-30] MEDS: FUROSEMIDE 40 MG/4 ML VIAL IV SCH ×2 (06:38→15:12)
[2017-08-30] MEDS: LEVOTHYROXINE 100 MCG TABLET PO SCH (06:38)
[2017-08-30] MEDS ORDERED: MORPHINE 4 MG/1 ML VIAL IV ONE (06:42)
[2017-08-30] MEDS: ALBUTEROL/IPRATROPIUM 3 ML NEB RESP TX SCH ×4 (07:52→18:30)
[2017-08-30] MEDS: METOCLOPRAMIDE 5 MG TABLET PO SCH ×4 (09:29→21:27)
[2017-08-30 09:40] LABS: Basophils # 0.1 10*3/uL (0.0-0.2); Basophils % 0.6 % (0.0-0.8); Eosinophils # 0.2 10*3/uL (0.0-0.87); Eosinophils % 1.9 % (0.00-10.9); Immature Granulocytes % 0.7 %; Immature Granulocytes Absolute 0.09 #; Lymphocytes # 0.8 10*3/uL (1.4-4.0); Lymphocytes % 6.7 % (21.3-54.2); Mean Corpuscular HGB Conc 32.3 GM/DL (32-36); Mean Corpuscular Hemoglobin 30 PG (27-34); Mean Corpuscular Volume 91.7 FL (87-102); Monocytes # 1.2 10*3/uL (0.11-0.8); Monocytes % 9.8 % (1.7-12.7); Neutrophils # 9.9 10*3/uL (1.4-7.4); Neutrophils % 80.3 % (38.7-73.9); Platelet Count 282 T/CUMM (130-400); Red Blood Count 3.38 MC/CUMM (3.8-5.5); Red Cell Distribution Width 14.6 % (9.3-17.3); White Blood Count 12.4 T/CUMM (4-12)
[2017-08-30 10:04] LABS: Calcium 10.6 MG/DL (8.5-10.1); Osmolality,Calculated 283.7 MOS/KG (273-304); Potassium 3.9 MMOL/L (3.5-5.1)
[2017-08-30] MEDS: NEBIVOLOL 5 MG TABLET PO SCH (10:42)
[2017-08-30] MEDS: CLOPIDOGREL 75 MG TABLET PO SCH (10:43)
[2017-08-30] MEDS: RANOLAZINE 500 MG TABLET PO SCH ×2 (10:43→21:27)
[2017-08-30] MEDS: ASPIRIN EC 81 MG TABLET PO SCH (10:43)
[2017-08-30] MEDS: ISOSORBIDE MONONITRATE 60 MG TABLET PO SCH (10:43)
[2017-08-30] MEDS: VALSARTAN 80 MG TABLET PO SCH (10:43)
[2017-08-30] MEDS: MORPHINE ER 30 MG TABLET PO SCH (10:44)
[2017-08-30] MEDS: AZITHROMYCIN INJ 500 MG in SODIUM CHLORIDE 0.9% 250 ML IV SCH (10:46)
[2017-08-30] MEDS ORDERED: FUROSEMIDE 40 MG/4 ML VIAL ONE (14:27)
[2017-08-30] MEDS: PANTOPRAZOLE 40 MG TABLET PO SCH (16:06)
[2017-08-30] MEDS: MORPHINE ER 15 MG TABLET PO SCH (16:06)
[2017-08-30] MEDS: amLODIPine 2.5 MG TABLET PO SCH (21:27)
[2017-08-30] MEDS: ATORVASTATIN 20 MG TABLET PO SCH (21:27)
[2017-08-31] MEDS: MEROPENEM 500 MG in SYRINGE 1 EACH IV SCH (04:05)
[2017-08-31] MEDS: LEVOTHYROXINE 100 MCG TABLET PO SCH (06:32)
[2017-08-31] MEDS: ALBUTEROL/IPRATROPIUM 3 ML NEB RESP TX SCH ×2 (08:04→12:08)
[2017-08-31] MEDS: RANOLAZINE 500 MG TABLET PO SCH (08:52)
[2017-08-31] MEDS: MORPHINE ER 30 MG TABLET PO SCH (08:52)
[2017-08-31] MEDS: NEBIVOLOL 5 MG TABLET PO SCH (08:52)
[2017-08-31] MEDS: METOCLOPRAMIDE 5 MG TABLET PO SCH ×2 (08:52→12:18)
[2017-08-31] MEDS: ISOSORBIDE MONONITRATE 60 MG TABLET PO SCH (08:52)
[2017-08-31] MEDS: VALSARTAN 80 MG TABLET PO SCH (08:52)
[2017-08-31] MEDS: FUROSEMIDE 40 MG/4 ML VIAL IV SCH (08:53)
[2017-08-31] MEDS: ASPIRIN EC 81 MG TABLET PO SCH (08:53)
[2017-08-31] MEDS: CLOPIDOGREL 75 MG TABLET PO SCH (08:57)
[2017-08-31 11:38] VITALS: BP 90/46
== END 2017-08-31 14:21 | disposition home health service (06) | DRG 193 ==
LOC: EDUNIT# → EDBD → N.ED 10:27 → N.EDINP 12:35 → N.TELES 17:09
PROVIDERS: ADMIT Family Medicine; ATTEND Family Medicine

== ENCOUNTER 2017-09-01 00:35 | Inpatient (IN) ==
[2017-09-01] MEDS ORDERED: MORPHINE 4 MG/1 ML VIAL IV STA (00:52)
[2017-09-01] MEDS ORDERED: ALBUTEROL NEB SOLN 5 MG/ML 20 ML/BOTTLE CONT NEB STA (00:52)
[2017-09-01] MEDS ORDERED: FUROSEMIDE 40 MG/4 ML VIAL IV STA (00:52)
[2017-09-01] MEDS ORDERED: ASPIRIN 325 MG TABLET PO STA (00:52)
[2017-09-01 01:48] LABS: ABG Base Excess 9.8 MMOL/L (-2.5-2.5); ABG HCO3 33.4 MMOL/L (20-26); ABG Oxygen Saturation 85.7 % (95-100); ABG PCO2 56.4 MM HG (35-48); ABG PH 7.414 (7.35-7.45); ABG PO2 55.7 MM HG (80-95); ABG TCO2 33.3 MMOL/L (23-27)
[2017-09-01 02:54] LABS: Basophils # 0.1 10*3/uL (0.0-0.2); Basophils % 0.4 % (0.0-0.8); Eosinophils # 0.2 10*3/uL (0.0-0.87); Eosinophils % 1.1 % (0.00-10.9); Hematocrit 31.3 VOL% (35.7-47.0); Hemoglobin 10.1 GM/DL (12.0-16.0); Immature Granulocytes % 0.5 %; Immature Granulocytes Absolute 0.09 #; Lymphocytes # 1.2 10*3/uL (1.4-4.0); Lymphocytes % 7.4 % (21.3-54.2); Mean Corpuscular HGB Conc 32.3 GM/DL (32-36); Mean Corpuscular Hemoglobin 30 PG (27-34); Mean Corpuscular Volume 92.9 FL (87-102); Mean Platelet Volume 11.2 FL (9.6-12.0); Monocytes # 1.7 10*3/uL (0.11-0.8); Monocytes % 10.2 % (1.7-12.7); Neutrophils # 13.3 10*3/uL (1.4-7.4); Neutrophils % 80.4 % (38.7-73.9); Platelet Count 309 T/CUMM (130-400); Red Blood Count 3.37 MC/CUMM (3.8-5.5); Red Cell Distribution Width 14.5 % (9.3-17.3); White Blood Count 16.5 T/CUMM (4-12)
[2017-09-01 03:04] LABS: PT Patient Result 10.6 SECS
[2017-09-01 03:13] LABS: Albumin 2.8 G/DL (3.4-5.0); Bilirubin,Total 0.5 MG/DL (0.2-1.0); Calcium 10.5 MG/DL (8.5-10.1); Osmolality,Calculated 288.7 MOS/KG (273-304); Total Protein 6.7 G/DL (6.4-8.3)
[2017-09-01] MEDS ORDERED: traMADol 50 MG TABLET PO PRN (04:27)
[2017-09-01] MEDS ORDERED: ALBUTEROL 2.5 MG/3 ML NEB RESP TX PRN (04:27)
[2017-09-01] MEDS ORDERED: ACETAMINOPHEN 325 MG TABLET PO PRN ×2 (04:27)
[2017-09-01] MEDS: SODIUM CHLORIDE 0.9% 1,000 ML IV SCH (05:28)
[2017-09-01] MEDS ORDERED: NITROGLYCERIN SL 0.4 MG TABLET SL PRN (05:30)
[2017-09-01] MEDS: LEVOTHYROXINE 100 MCG TABLET PO SCH ×2 (05:34→09:14)
[2017-09-01] MEDS: MEROPENEM 500 MG in SYRINGE 1 EACH IV SCH ×2 (06:35→17:31)
[2017-09-01] MEDS: ALBUTEROL/IPRATROPIUM 3 ML NEB RESP TX SCH ×4 (07:37→19:46)
[2017-09-01] MEDS ORDERED: FUROSEMIDE 40 MG TABLET PO SCH (08:00)
[2017-09-01] MEDS: ENOXAPARIN 30 MG/0.3 ML SYRINGE SUBCUT SCH (09:12)
[2017-09-01] MEDS: ISOSORBIDE MONONITRATE 60 MG TABLET PO SCH (09:13)
[2017-09-01] MEDS: RANOLAZINE 500 MG TABLET PO SCH ×2 (09:13→20:19)
[2017-09-01] MEDS: DOCUSATE SODIUM 100 MG CAPSULE PO SCH ×2 (09:13→20:19)
[2017-09-01] MEDS: MORPHINE ER 30 MG TABLET PO SCH (09:14)
[2017-09-01] MEDS: NEBIVOLOL 5 MG TABLET PO SCH (09:14)
[2017-09-01] MEDS: ASPIRIN EC 81 MG TABLET PO SCH (09:14)
[2017-09-01] MEDS: VALSARTAN 80 MG TABLET PO SCH (09:14)
[2017-09-01] MEDS: CLOPIDOGREL 75 MG TABLET PO SCH (09:15)
[2017-09-01] MEDS: NITROGLYCERIN 2% OINT 1 INCH/GM PACK TOP SCH ×2 (09:15→22:44)
[2017-09-01] MEDS: PANTOPRAZOLE 40 MG VIAL IV SCH (09:16)
[2017-09-01] MEDS: FUROSEMIDE 20 MG/2 ML VIAL IV SCH ×2 (09:17→17:24)
[2017-09-01] MEDS: LINEZOLID INJ 600 MG in PREMIX 1 EACH IV SCH ×2 (09:20→20:18)
[2017-09-01] MEDS: NITROGLYCERIN SL 0.4 MG TABLET SL SCH ×3 (09:41→09:43)
[2017-09-01] MEDS ORDERED: PANTOPRAZOLE 40 MG TABLET PO SCH (16:30)
[2017-09-01] MEDS: MORPHINE ER 15 MG TABLET PO SCH (17:30)
[2017-09-01] MEDS: ATORVASTATIN 20 MG TABLET PO SCH (20:19)
[2017-09-01] MEDS ORDERED: amLODIPine 2.5 MG TABLET PO SCH (21:00)
[2017-09-02 06:24] LABS: Basophils # 0.1 10*3/uL (0.0-0.2); Basophils % 0.5 % (0.0-0.8); Eosinophils # 0.4 10*3/uL (0.0-0.87); Eosinophils % 3.3 % (0.00-10.9); Hematocrit 26.3 VOL% (35.7-47.0); Hemoglobin 8.7 GM/DL (12.0-16.0); Immature Granulocytes % 0.5 %; Immature Granulocytes Absolute 0.07 #; Lymphocytes % 7.3 % (21.3-54.2); Mean Corpuscular HGB Conc 33.1 GM/DL (32-36); Mean Corpuscular Hemoglobin 30 PG (27-34); Mean Corpuscular Volume 90.1 FL (87-102); Mean Platelet Volume 11.4 FL (9.6-12.0); Monocytes # 1.3 10*3/uL (0.11-0.8); Monocytes % 9.8 % (1.7-12.7); Neutrophils # 10.4 10*3/uL (1.4-7.4); Neutrophils % 78.6 % (38.7-73.9); Platelet Count 294 T/CUMM (130-400); Red Blood Count 2.92 MC/CUMM (3.8-5.5); Red Cell Distribution Width 14.6 % (9.3-17.3); White Blood Count 13.2 T/CUMM (4-12)
[2017-09-02] MEDS: LEVOTHYROXINE 100 MCG TABLET PO SCH (06:46)
[2017-09-02] MEDS: MEROPENEM 500 MG in SYRINGE 1 EACH IV SCH (06:46)
[2017-09-02 06:58] LABS: Albumin 2.2 G/DL (3.4-5.0); Bilirubin,Total 0.9 MG/DL (0.2-1.0); Calcium 10.5 MG/DL (8.5-10.1); Potassium 4.4 MMOL/L (3.5-5.1); Risk Ratio 2.02; VLDL CHOLESTEROL 12.2 MG/DL
[2017-09-02] MEDS: ALBUTEROL/IPRATROPIUM 3 ML NEB RESP TX SCH ×4 (07:34→19:38)
[2017-09-02] MEDS: MORPHINE 4 MG/1 ML VIAL IV PRN ×4 (13:48→23:07)
[2017-09-02] MEDS: LINEZOLID INJ 600 MG in PREMIX 1 EACH IV SCH (16:33)
[2017-09-02] MEDS: FUROSEMIDE 20 MG/2 ML VIAL IV SCH ×2 (16:40→18:45)
[2017-09-02] MEDS: PANTOPRAZOLE 40 MG VIAL IV SCH (16:40)
[2017-09-02] MEDS: ENOXAPARIN 30 MG/0.3 ML SYRINGE SUBCUT SCH (16:41)
[2017-09-02] MEDS: MEROPENEM 1,000 MG in SYRINGE 1 EACH IV SCH (19:07)
[2017-09-02] MEDS: SODIUM CHLORIDE 0.9% 1,000 ML IV SCH (20:19)
[2017-09-02] MEDS: NEBIVOLOL 5 MG TABLET PO SCH (20:20)
[2017-09-02] MEDS: ISOSORBIDE MONONITRATE 60 MG TABLET PO SCH (20:20)
[2017-09-02] MEDS: VALSARTAN 80 MG TABLET PO SCH (20:20)
[2017-09-02] MEDS: DOCUSATE SODIUM 100 MG CAPSULE PO SCH ×2 (20:20→21:34)
[2017-09-02] MEDS: ASPIRIN EC 81 MG TABLET PO SCH (20:20)
[2017-09-02] MEDS: MORPHINE ER 15 MG TABLET PO SCH (20:21)
[2017-09-02] MEDS: RANOLAZINE 500 MG TABLET PO SCH ×2 (20:21→21:34)
[2017-09-02] MEDS: CLOPIDOGREL 75 MG TABLET PO SCH (20:21)
[2017-09-02] MEDS: MORPHINE ER 30 MG TABLET PO SCH (20:21)
[2017-09-02] MEDS: NITROGLYCERIN 2% OINT 1 INCH/GM PACK TOP SCH (20:30)
[2017-09-02] MEDS: ATORVASTATIN 20 MG TABLET PO SCH (21:34)
[2017-09-02] MEDS ORDERED: traMADol 50 MG TABLET PO PRN (23:40)
[2017-09-03] MEDS: MORPHINE 4 MG/1 ML VIAL IV PRN ×7 (02:33→15:12)
[2017-09-03] MEDS: SODIUM CHLORIDE 0.9% 1,000 ML IV SCH (05:09)
[2017-09-03] MEDS: MEROPENEM 1,000 MG in SYRINGE 1 EACH IV SCH ×2 (05:26→17:15)
[2017-09-03] MEDS: LINEZOLID INJ 600 MG in PREMIX 1 EACH IV SCH ×2 (05:26→17:17)
[2017-09-03] MEDS: LEVOTHYROXINE 100 MCG TABLET PO SCH (05:35)
[2017-09-03] MEDS: ALBUTEROL/IPRATROPIUM 3 ML NEB RESP TX SCH ×4 (08:10→18:59)
[2017-09-03] MEDS: DOCUSATE SODIUM 100 MG CAPSULE PO SCH ×2 (10:02→20:38)
[2017-09-03] MEDS: VALSARTAN 80 MG TABLET PO SCH (10:02)
[2017-09-03] MEDS: ISOSORBIDE MONONITRATE 60 MG TABLET PO SCH (10:02)
[2017-09-03] MEDS: ASPIRIN EC 81 MG TABLET PO SCH (10:02)
[2017-09-03] MEDS: NEBIVOLOL 5 MG TABLET PO SCH (10:02)
[2017-09-03] MEDS: ENOXAPARIN 30 MG/0.3 ML SYRINGE SUBCUT SCH (10:03)
[2017-09-03] MEDS: CLOPIDOGREL 75 MG TABLET PO SCH (10:03)
[2017-09-03] MEDS: MORPHINE ER 30 MG TABLET PO SCH (10:03)
[2017-09-03] MEDS: RANOLAZINE 500 MG TABLET PO SCH ×2 (10:04→20:38)
[2017-09-03] MEDS: FUROSEMIDE 20 MG/2 ML VIAL IV SCH ×2 (12:03→17:19)
[2017-09-03] MEDS: PANTOPRAZOLE 40 MG VIAL IV SCH (12:04)
[2017-09-03] MEDS: ALBUTEROL/IPRATROPIUM 3 ML NEB RESP TX PRN (12:48)
[2017-09-03] MEDS ORDERED: NITROGLYCERIN SL 0.4 MG TABLET SL ONE (15:13)
[2017-09-03] MEDS: MORPHINE ER 15 MG TABLET PO SCH (16:46)
[2017-09-03] MEDS: MORPHINE 10 MG/1 ML VIAL IV PRN ×2 (20:20→21:40)
[2017-09-03] MEDS: ATORVASTATIN 20 MG TABLET PO SCH (20:38)
[2017-09-03] MEDS: LORazepam 2 MG/1 ML VIAL IV PRN (21:47)
[2017-09-04] MEDS: MORPHINE 10 MG/1 ML VIAL IV PRN ×11 (00:21→23:10)
[2017-09-04] MEDS: LORazepam 2 MG/1 ML VIAL IV PRN ×5 (02:25→22:10)
[2017-09-04] MEDS: SODIUM CHLORIDE 0.9% 1,000 ML IV SCH (05:40)
[2017-09-04] MEDS: LINEZOLID INJ 600 MG in PREMIX 1 EACH IV SCH ×2 (06:14→16:48)
[2017-09-04] MEDS: MEROPENEM 1,000 MG in SYRINGE 1 EACH IV SCH ×2 (06:15→18:03)
[2017-09-04] MEDS: LEVOTHYROXINE 100 MCG TABLET PO SCH (06:15)
[2017-09-04] MEDS: ALBUTEROL/IPRATROPIUM 3 ML NEB RESP TX SCH ×4 (07:53→20:50)
[2017-09-04] MEDS: NEBIVOLOL 5 MG TABLET PO SCH (15:04)
[2017-09-04] MEDS: ASPIRIN EC 81 MG TABLET PO SCH (15:04)
[2017-09-04] MEDS: VALSARTAN 80 MG TABLET PO SCH (15:04)
[2017-09-04] MEDS: DOCUSATE SODIUM 100 MG CAPSULE PO SCH ×2 (15:04→21:35)
[2017-09-04] MEDS: ENOXAPARIN 30 MG/0.3 ML SYRINGE SUBCUT SCH (15:05)
[2017-09-04] MEDS: MORPHINE ER 30 MG TABLET PO SCH (15:05)
[2017-09-04] MEDS: ISOSORBIDE MONONITRATE 60 MG TABLET PO SCH (15:05)
[2017-09-04] MEDS: PANTOPRAZOLE 40 MG VIAL IV SCH (15:05)
[2017-09-04] MEDS: CLOPIDOGREL 75 MG TABLET PO SCH (15:05)
[2017-09-04] MEDS: FUROSEMIDE 20 MG/2 ML VIAL IV SCH ×2 (15:06→16:44)
[2017-09-04] MEDS: RANOLAZINE 500 MG TABLET PO SCH ×2 (15:06→21:36)
[2017-09-04] MEDS: MORPHINE ER 15 MG TABLET PO SCH (16:43)
[2017-09-04] MEDS: ATORVASTATIN 20 MG TABLET PO SCH (21:35)
[2017-09-05] MEDS: MORPHINE 10 MG/1 ML VIAL IV PRN ×12 (00:25→23:44)
[2017-09-05] MEDS: LORazepam 2 MG/1 ML VIAL IV PRN ×6 (02:20→23:44)
[2017-09-05] MEDS: SODIUM CHLORIDE 0.9% 1,000 ML IV SCH (03:51)
[2017-09-05] MEDS: MEROPENEM 1,000 MG in SYRINGE 1 EACH IV SCH ×2 (05:26→18:37)
[2017-09-05] MEDS: LINEZOLID INJ 600 MG in PREMIX 1 EACH IV SCH ×2 (05:28→17:07)
[2017-09-05] MEDS: LEVOTHYROXINE 100 MCG TABLET PO SCH (05:37)
[2017-09-05] MEDS: ALBUTEROL/IPRATROPIUM 3 ML NEB RESP TX SCH ×4 (07:54→19:27)
[2017-09-05] MEDS: FUROSEMIDE 20 MG/2 ML VIAL IV SCH ×2 (08:37→17:05)
[2017-09-05] MEDS: ENOXAPARIN 30 MG/0.3 ML SYRINGE SUBCUT SCH (08:37)
[2017-09-05] MEDS: VALSARTAN 80 MG TABLET PO SCH (08:45)
[2017-09-05] MEDS: ASPIRIN EC 81 MG TABLET PO SCH (08:45)
[2017-09-05] MEDS: DOCUSATE SODIUM 100 MG CAPSULE PO SCH ×2 (08:45→22:27)
[2017-09-05] MEDS: NEBIVOLOL 5 MG TABLET PO SCH (08:45)
[2017-09-05] MEDS: ISOSORBIDE MONONITRATE 60 MG TABLET PO SCH (08:46)
[2017-09-05] MEDS: PANTOPRAZOLE 40 MG VIAL IV SCH (08:46)
[2017-09-05] MEDS: MORPHINE ER 30 MG TABLET PO SCH (08:46)
[2017-09-05] MEDS: CLOPIDOGREL 75 MG TABLET PO SCH (08:46)
[2017-09-05] MEDS: RANOLAZINE 500 MG TABLET PO SCH ×2 (08:47→22:27)
[2017-09-05] MEDS: MORPHINE ER 15 MG TABLET PO SCH (16:09)
[2017-09-05] MEDS: ATORVASTATIN 20 MG TABLET PO SCH (22:27)
[2017-09-06] MEDS: MORPHINE 10 MG/1 ML VIAL IV PRN ×8 (02:09→12:39)
[2017-09-06] MEDS: ALBUTEROL/IPRATROPIUM 3 ML NEB RESP TX PRN (02:50)
[2017-09-06] MEDS: SODIUM CHLORIDE 0.9% 1,000 ML IV SCH (04:23)
[2017-09-06] MEDS: LINEZOLID INJ 600 MG in PREMIX 1 EACH IV SCH (04:27)
[2017-09-06] MEDS: MEROPENEM 1,000 MG in SYRINGE 1 EACH IV SCH (06:12)
[2017-09-06] MEDS: LORazepam 2 MG/1 ML VIAL IV PRN ×2 (06:13→10:39)
[2017-09-06] MEDS: LEVOTHYROXINE 100 MCG TABLET PO SCH (07:05)
[2017-09-06] MEDS: ALBUTEROL/IPRATROPIUM 3 ML NEB RESP TX SCH ×2 (07:40→11:00)
[2017-09-06] MEDS: PANTOPRAZOLE 40 MG VIAL IV SCH (08:21)
[2017-09-06] MEDS: FUROSEMIDE 20 MG/2 ML VIAL IV SCH (08:21)
[2017-09-06] MEDS: ENOXAPARIN 30 MG/0.3 ML SYRINGE SUBCUT SCH (08:22)
[2017-09-06] MEDS: ASPIRIN EC 81 MG TABLET PO SCH (09:24)
[2017-09-06] MEDS: NEBIVOLOL 5 MG TABLET PO SCH (09:24)
[2017-09-06] MEDS: DOCUSATE SODIUM 100 MG CAPSULE PO SCH (09:25)
[2017-09-06] MEDS: MORPHINE ER 30 MG TABLET PO SCH (09:25)
[2017-09-06] MEDS: VALSARTAN 80 MG TABLET PO SCH (09:25)
[2017-09-06] MEDS: CLOPIDOGREL 75 MG TABLET PO SCH (09:25)
[2017-09-06] MEDS: ISOSORBIDE MONONITRATE 60 MG TABLET PO SCH (09:25)
[2017-09-06] MEDS: RANOLAZINE 500 MG TABLET PO SCH (09:26)
[2017-09-06 13:00] VITALS: BP 126/59
== END 2017-09-06 14:18 | disposition hospice, inpatient (51) | DRG 291 ==
LOC: EDBD → EDUNIT# → N.ED 00:35 → N.EDINP 01:09 → SUPCPDRO 01:09 → N.TELEN 02:10
PROVIDERS: ADMIT Family Medicine; ATTEND Family Medicine

== ENCOUNTER 2017-09-06 14:19 | Inpatient (IN) ==
[2017-09-06] MEDS: MORPHINE 4 MG/1 ML VIAL IV PRN ×7 (14:40→23:56)
[2017-09-06] MEDS ORDERED: ACETAMINOPHEN 325 MG TABLET PO PRN (14:46)
[2017-09-06] MEDS ORDERED: MORPHINE 4 MG/1 ML VIAL IV PRN (17:32)
[2017-09-06] MEDS ORDERED: ONDANSETRON 4 MG/2 ML VIAL IV PRN (17:39)
[2017-09-06] MEDS: LORazepam 2 MG/1 ML VIAL IV PRN ×2 (19:46→23:57)
[2017-09-07] MEDS: MORPHINE 4 MG/1 ML VIAL IV PRN ×7 (02:01→16:57)
[2017-09-07] MEDS: LORazepam 2 MG/1 ML VIAL IV PRN ×4 (08:30→20:50)
[2017-09-07] MEDS: MORPHINE SULFATE 20 MG/ML SL PRN (22:59)
[2017-09-07] MEDS: LORAZEPAM 2 MG/ML SL PRN (23:05)
[2017-09-08] MEDS: MORPHINE SULFATE 20 MG/ML SL PRN ×8 (01:03→14:50)
[2017-09-08] MEDS: LORAZEPAM 2 MG/ML SL PRN ×4 (03:00→14:49)
[2017-09-08] MEDS ORDERED: INSULIN NPH/REGULAR 70/30 100 UNIT/ML SUBCUT ONE (08:45)
[2017-09-08 13:58] VITALS: BP 73/41
[2017-09-08] MEDS ORDERED: INSULIN LISPRO PROTAMINE/LISPRO 75/25 100 UNIT/ML SUBCUT ONE (17:57)
== END 2017-09-08 16:20 | disposition expired | DRG 951 ==
LOC: OBSVTOIN 14:19 → INTOOBSV 14:19 → N.TELEN 14:19 → N.4E 15:30
PROVIDERS: ADMIT Family Medicine; ATTEND Family Medicine